=== PATIENT | female | born 1950 | race Caucasian/White ===

== ENCOUNTER 2020-02-25 09:00 | Outpatient (REF) | payer MEDICARE, SELFPAY ==
[2020-02-25 11:17] LABS: MANUAL DIFF FLAG NO
[2020-02-25 11:28] LABS: Eosinophils Absolute Auto 0.2 X10*3/uL (0.0-0.4); Eosinophils Percent Auto 2.6 % (0-4); Hematocrit 37.5 % (37-47); Hemoglobin 12.2 g/dl (12.0-16.0); Imm Gran Abs Auto 0.02 X10*3/uL (0.00-0.03); Imm Gran Pct Auto 0.3 % (0.0-0.4); Lymphocytes Absolute Auto 1.8 X10*3/uL (1.2-4.9); Lymphocytes Percent Auto 28.8 % (20-40); Mean Corpuscular HGB Conc 32.5 g/dl (31.0-35.0); Mean Corpuscular Hemoglobin 32.1 pg (27.0-33.0); Mean Corpuscular Volume 98.7 fL (80-98); Monocytes Absolute Auto 0.5 X10*3/uL (0.1-1.2); Monocytes Percent Auto 8.8 % (2-11); Neutrophils Absolute Auto 3.7 X10*3/uL (2.0-8.3); Neutrophils Percent Auto 59.5 % (45-73); Platelet Count 240 X10*3/uL (160-400); Red Cell Distribution Width 12.4 % (11.0-16.0); White Blood Count 6.2 X10*3/uL (4.8-10.8)
[2020-02-25 11:36] LABS: Estimated Average Glucose 160 mg/dL; Hemoglobin A1c % 7.2 %
[2020-02-25 11:57] LABS: Alanine Aminotransferase 17 U/L (0-31); Albumin Level 4.4 g/dL (3.5-5.0); Alkaline Phosphatase 43 U/L (39-117); Anion Gap 15 (12-20); Aspartate Amino Transferase 25 U/L (5-31); Bilirubin Total 0.6 mg/dL (0.0-1.0); Blood Urea Nitrogen 9 mg/dL (9-16); Calcium 8.9 mg/dL (8.4-10.2); Carbon Dioxide 27 mmol/L (22-29); Chloride 103 mmol/L (96-108); Cholesterol 85 mg/dL; Estimated Glomerular Filt Rate > 60; Glucose Fasting 131 mg/dL (60-99); HDL Cholesterol 45 mg/dL; LDL Cholesterol Calculated 32 mg/dl; Potassium 4.5 mmol/l (3.3-5.1); Sodium 140 mmol/L (135-145); Total Protein 7.3 g/dL (6.5-8.0); Triglycerides 44 mg/dL
[2020-02-25 12:10] LABS: Vitamin D 25-OH Total 48.2 ng/mL (>30)
[2020-02-25 12:18] LABS: Creatinine Urine 109.46 mg/dL; Microalbum/Creatinine Ratio Ur 12.7 ug/mg cr
[2020-02-25 12:20] LABS: Vitamin B12 309 pg/mL (200-900)
[2020-02-26 07:47] LABS: LDL Cholesterol Direct 30 mg/dL (<100)
[2020-02-29 11:12] LABS: N-Telopeptide 15 (see note); NTXCreaRU 114 mg/dL (20-275)
== END 2020-02-25 09:01 | disposition home or self-care (01) ==
LOC: HO.HMGCLDS 09:00
PROVIDERS: PCP Hospitalist; Visit Provider Internal Medicine Endocrinology, Diabetes & Metabolism
DX: E11.29 Type 2 diabetes mellitus with other diabetic kidney complication (principal); M81.0 Age-related osteoporosis without current pathological fracture
CPT/HCPCS: 36415; 80053; 80061; 82043; 82306; 82523; 82607; 83036; 83721; 85025

== ENCOUNTER → 2020-02-27 13:36 | Outpatient (BNVA) | payer MEDICARE, SELFPAY | PROVIDERS: PCP Hospitalist; Referring Provider Hospitalist; Visit Provider Internal Medicine Endocrinology, Diabetes & Metabolism | DX: E11.65 Type 2 diabetes mellitus with hyperglycemia (principal); E11.21 Type 2 diabetes mellitus with diabetic nephropathy; E78.5 Hyperlipidemia, unspecified; M81.0 Age-related osteoporosis without current pathological fracture; Z79.899 Other long term (current) drug therapy; Z79.82 Long term (current) use of aspirin | CPT/HCPCS: Q3014 ==

== ENCOUNTER → 2020-03-23 11:21 | Outpatient (BNVA) | payer MEDICARE, SELFPAY | PROVIDERS: PCP Hospitalist; Visit Provider Internal Medicine Endocrinology, Diabetes & Metabolism | DX: M81.0 Age-related osteoporosis without current pathological fracture (principal) | CPT/HCPCS: 96402; J0897 ==

== ENCOUNTER 2020-04-26 12:41 | Outpatient (REF) | payer MEDICARE, SELFPAY ==
[2020-04-26 14:25] LABS: Albumin Level 4.3 g/dL (3.5-5.0); Calcium 8.6 mg/dL (8.4-10.2)
== END 2020-04-26 12:42 | disposition home or self-care (01) ==
LOC: HO.HMGCLDS 12:41
PROVIDERS: PCP Hospitalist; Visit Provider Internal Medicine Endocrinology, Diabetes & Metabolism
DX: M81.0 Age-related osteoporosis without current pathological fracture (principal)
CPT/HCPCS: 36415; 82040; 82310

== ENCOUNTER 2020-09-02 13:12 | Outpatient (REF) | payer MEDICARE, SELFPAY ==
--- NOTE | ~2020-09-02 | MM_ITS ---
EXAMINATION: MM SCREENING DIGITAL BREAST TOMOSYNTHESIS, BILATERAL CLINICAL INFORMATION: Screening. Asymptomatic. The lifetime risk of breast cancer based on the Tyrer-Cuzick Model is 4%. COMPARISON: Mammography: 09/02/2018, 08/14/2017, 08/11/2016 TECHNIQUE: Digital breast tomosynthesis is performed in both the craniocaudal and mediolateral oblique views along with computer-aided detection (CAD). Synthesized 2D images are generated from the tomosynthesis. FINDINGS: The breasts are heterogeneously dense, which may obscure small masses (ACR BI-RADS breast composition Category c). There are no significant masses, abnormal calcifications, or other abnormalities. Parenchymal pattern is similar to prior exams. There is no developing density or interval mass or architectural abnormality. The axilla and skin contours are unremarkable. MM/MM tomosynthesis screening BI IMPRESSION: No mammographic evidence of malignancy. ASSESSMENT: BI-RADS 1: Negative RECOMMENDATION: Routine annual mammography screening. This patient's information was entered into a reminder system with a target due date for their next mammogram.
== END 2020-09-02 13:13 | disposition home or self-care (01) ==
LOC: HO.MAMMO 13:12
PROVIDERS: PCP Hospitalist; Visit Provider Hospitalist
DX: Z12.31 Encounter for screening mammogram for malignant neoplasm of breast (principal)
CPT/HCPCS: 77063; 77067

== ENCOUNTER 2020-09-24 08:34 | Outpatient (REF) | payer MEDICARE, SELFPAY ==
[2020-09-24 10:22] LABS: Alanine Aminotransferase 17 U/L (0-31); Albumin Level 4.2 g/dL (3.5-5.0); Alkaline Phosphatase 40 U/L (39-117); Anion Gap 14 (12-20); Aspartate Amino Transferase 23 U/L (5-31); Bilirubin Total 0.5 mg/dL (0.0-1.0); Blood Urea Nitrogen 13 mg/dL (9-16); Carbon Dioxide 26 mmol/L (22-29); Chloride 102 mmol/L (96-108); Cholesterol 88 mg/dL; Estimated Glomerular Filt Rate > 60; Glucose Random 167 mg/dL (60-115); HDL Cholesterol 50 mg/dL; LDL Cholesterol Calculated 32 mg/dl; Potassium 4.5 mmol/L (3.3-5.1); Sodium 137 mmol/L (135-145); Triglycerides 33 mg/dL
[2020-09-24 10:43] LABS: Vitamin D 25-OH Total 47.2 ng/mL (>30)
[2020-09-24 10:45] LABS: Vitamin B12 258 pg/mL (200-900)
[2020-09-24 11:15] LABS: Creatinine Urine 60.69 mg/dL; Microalbum/Creatinine Ratio Ur 11.5 ug/mg cr
[2020-09-25 08:16] LABS: LDL Cholesterol Direct 26 mg/dL (<100)
[2020-10-05 05:48] LABS: N-Telopeptide 21 (see note); NTXCreaRU 57 mg/dL (20-275)
== END 2020-09-24 08:35 | disposition home or self-care (01) ==
LOC: HO.LAB 08:34
PROVIDERS: PCP Hospitalist; Visit Provider Internal Medicine Endocrinology, Diabetes & Metabolism
DX: E11.65 Type 2 diabetes mellitus with hyperglycemia (principal); E11.21 Type 2 diabetes mellitus with diabetic nephropathy; M81.0 Age-related osteoporosis without current pathological fracture; E78.5 Hyperlipidemia, unspecified; Z79.899 Other long term (current) drug therapy
CPT/HCPCS: 36415; 80053; 80061; 82043; 82306; 82523; 82607; 82947; 83721; 96372; 99212; J0897; J3240

== ENCOUNTER 2021-03-28 12:45 | Outpatient (REF) | payer MEDICARE, SELFPAY ==
[2021-03-28 14:16] LABS: Estimated Average Glucose 177 mg/dL; Hemoglobin A1c % 7.8 %
[2021-03-28 14:31] LABS: Alanine Aminotransferase 13 U/L (0-31); Alkaline Phosphatase 43 U/L (39-117); Anion Gap 11 (12-20); Aspartate Amino Transferase 21 U/L (5-31); Bilirubin Total 0.3 mg/dL (0.0-1.0); Blood Urea Nitrogen 13 mg/dL (9-16); Calcium 9.3 mg/dL (8.4-10.2); Carbon Dioxide 30 mmol/L (22-29); Chloride 102 mmol/L (96-108); Cholesterol 111 mg/dL; Estimated Glomerular Filt Rate > 60; Glucose Random 250 mg/dL (60-115); HDL Cholesterol 56 mg/dL; LDL Cholesterol Calculated 49 mg/dl; Potassium 4.4 mmol/L (3.3-5.1); Sodium 139 mmol/L (135-145); Triglycerides 34 mg/dL
[2021-03-28 14:55] LABS: Free T4 (Free Thyroxine) 1.32 ng/dL (0.71-1.85); Vitamin D 25-OH Total 42.3 ng/mL (>30)
[2021-03-29 07:36] LABS: LDL Cholesterol Direct 37 mg/dL (<100)
[2021-03-29 13:31] LABS: Calcium (PTHI) 9.5 mg/dL (8.6-10.4); PTHI 41 pg/mL (14-64)
[2021-03-29 15:17] LABS: Calcium, Ionized 4.8 mg/dL (4.8-5.6)
[2021-03-29 21:02] LABS: Prot Elec - Albumin 3.8 g/dL (3.8-4.8); Prot Elec - Alpha1 0.3 g/dL (0.2-0.3); Prot Elec - Alpha2 0.8 g/dL (0.5-0.9); Prot Elec - Beta 1 0.5 g/dL (0.4-0.6); Prot Elec - Beta 2 0.4 g/dL (0.2-0.5); Prot Elec - Gamma 0.9 g/dL (0.8-1.7); Prot Elec - Total Protein 6.7 g/dL (6.1-8.1)
[2021-04-01 14:22] LABS: Alkaline Phosphatase Bone 7.7 mcg/L (5.6-29.0)
== END 2021-03-28 12:46 | disposition home or self-care (01) ==
LOC: HO.10HDL 12:45
PROVIDERS: Absent Provider Hospitalist; Visit Provider Internal Medicine
DX: E78.5 Hyperlipidemia, unspecified (principal); M81.0 Age-related osteoporosis without current pathological fracture
CPT/HCPCS: 36415; 80053; 80061; 82306; 82330; 83036; 83721; 83970; 84075; 84100; 84165; 84439; 84443

== ENCOUNTER 2021-03-30 12:31 | Outpatient (REF) | payer MEDICARE, SELFPAY ==
[2021-03-30 15:04] LABS: Creatinine, mg/dL 57.19
[2021-03-30 15:06] LABS: Creatinine Urine 111.59 mg/dL; Microalbum/Creatinine Ratio Ur 11.6 ug/mg cr
[2021-03-30 16:25] LABS: Creatinine, 24Hr Urine 0.4 G/Day (1.0-2.0); Total Volume 24 Hour Urine 675 mL
[2021-04-01 18:31] LABS: Calcium, 24 Hr Urine 63 mg/24 h; Calcium/Creatinine Ratio 159 mg/g creat (30-275)
[2021-04-04 21:07] LABS: N-Telopeptide 29 (see note); NTXCreaRU 114 mg/dL (20-275)
== END 2021-03-30 12:32 | disposition home or self-care (01) ==
LOC: HO.10HDL 12:31
PROVIDERS: Visit Provider Internal Medicine
DX: M81.0 Age-related osteoporosis without current pathological fracture (principal); E78.5 Hyperlipidemia, unspecified
CPT/HCPCS: 82043; 82340; 82523; 82570

== ENCOUNTER → 2021-04-06 11:29 | Outpatient (BNVA) | payer MEDICARE, SELFPAY | PROVIDERS: PCP Hospitalist; Visit Provider Internal Medicine | DX: M81.0 Age-related osteoporosis without current pathological fracture (principal); E55.9 Vitamin D deficiency, unspecified | CPT/HCPCS: 99212 ==

== ENCOUNTER 2021-04-08 11:37 | Outpatient (REF) | payer MEDICARE, SELFPAY ==
[2021-04-08 14:36] LABS: Creatinine, mg/dL 21.62
[2021-04-08 14:40] LABS: Creatinine, 24Hr Urine 0.4 G/Day (1.0-2.0); Total Volume 24 Hour Urine 2075 mL
[2021-04-09 16:31] LABS: Calcium, 24 Hr Urine 62 mg/24 h; Calcium/Creatinine Ratio 130 mg/g creat (30-275); Creatinine 24Hr Urine 0.48 g/24 h (0.50-2.15)
== END 2021-04-08 11:38 | disposition home or self-care (01) ==
LOC: HO.10HDLNP 11:37
PROVIDERS: Visit Provider Internal Medicine
DX: M81.0 Age-related osteoporosis without current pathological fracture (principal)
CPT/HCPCS: 82340; 82570

== ENCOUNTER → 2021-04-13 08:06 | Outpatient (BNVA) | payer MEDICARE, SELFPAY | PROVIDERS: PCP Hospitalist; Visit Provider Internal Medicine | CPT/HCPCS: Q3014 ==

== ENCOUNTER 2021-05-20 09:54 | Outpatient (REF) | payer MEDICARE, SELFPAY ==
[2021-05-20 10:29] LABS: Creatinine, mg/dL 26.44
[2021-05-20 10:41] LABS: Creatinine, 24Hr Urine 0.6 G/Day (1.0-2.0); Total Volume 24 Hour Urine 2325 mL
[2021-05-23 17:01] LABS: Calcium, 24 Hr Urine 77 mg/24 h; Calcium/Creatinine Ratio 114 mg/g creat (30-275); Creatinine 24Hr Urine 0.67 g/24 h (0.50-2.15)
== END 2021-05-20 09:55 | disposition home or self-care (01) ==
LOC: HO.LNP 09:54
PROVIDERS: Visit Provider Internal Medicine
DX: M81.0 Age-related osteoporosis without current pathological fracture (principal)
CPT/HCPCS: 82340; 82570

== ENCOUNTER → 2021-05-23 11:24 | Outpatient (BNVA) | payer MEDICARE, SELFPAY | PROVIDERS: PCP Hospitalist; Visit Provider Internal Medicine | DX: M81.0 Age-related osteoporosis without current pathological fracture (principal); E55.9 Vitamin D deficiency, unspecified | CPT/HCPCS: 99212 ==

== ENCOUNTER → 2021-06-10 12:36 | Outpatient (BNVA) | payer MEDICARE, SELFPAY | PROVIDERS: PCP Hospitalist; Visit Provider Internal Medicine | DX: M81.0 Age-related osteoporosis without current pathological fracture (principal) | CPT/HCPCS: 96372; J0897 ==

== ENCOUNTER → 2021-07-13 10:48 | Outpatient (BNVA) | payer MEDICARE, SELFPAY | PROVIDERS: PCP Hospitalist; Visit Provider Nurse Practitioner Gerontology | DX: E11.65 Type 2 diabetes mellitus with hyperglycemia (principal); E11.21 Type 2 diabetes mellitus with diabetic nephropathy; E78.5 Hyperlipidemia, unspecified | CPT/HCPCS: 82947; 83036; 99212 ==

== ENCOUNTER 2021-08-31 10:01 | Outpatient (REF) | payer MEDICARE, SELFPAY ==
[2021-08-31 11:44] LABS: Estimated Glomerular Filt Rate > 60
[2021-08-31 11:57] LABS: Creatinine Urine 155.19 mg/dL; Microalbum/Creatinine Ratio Ur 18.6 ug/mg cr
[2021-09-01 15:36] LABS: Calcium (PTHI) 9.2 mg/dL (8.6-10.4); PTHI 45 pg/mL (16-77)
== END 2021-08-31 10:02 | disposition home or self-care (01) ==
LOC: HO.HMGCLDS 10:01
PROVIDERS: Absent Provider Nurse Practitioner Gerontology; PCP Nurse Practitioner Family; Visit Provider Internal Medicine
DX: E11.65 Type 2 diabetes mellitus with hyperglycemia (principal); E55.9 Vitamin D deficiency, unspecified; M81.0 Age-related osteoporosis without current pathological fracture; Z79.899 Other long term (current) drug therapy
CPT/HCPCS: 36415; 82043; 82565; 83970; Q3014

== ENCOUNTER 2021-10-04 09:08 | Outpatient (REF) | payer MEDICARE, SELFPAY ==
--- NOTE | ~2021-10-04 | MM_ITS ---
EXAMINATION: MM SCREENING DIGITAL BREAST TOMOSYNTHESIS, BILATERAL CLINICAL INFORMATION: Screening. Asymptomatic. The lifetime risk of breast cancer based on the Tyrer-Cuzick Model is 3.0%. COMPARISON: Mammography: September 02, 2020 and studies dating back to July 10, 2013 TECHNIQUE: Digital breast tomosynthesis is performed in both the craniocaudal and mediolateral oblique views along with computer-aided detection (CAD). Synthesized 2D images are generated from the tomosynthesis. FINDINGS: The breasts are heterogeneously dense, which may obscure small masses (ACR BI-RADS breast composition Category c). There are no significant masses, abnormal calcifications, or other abnormalities. MM/MM tomosynthesis screening BI IMPRESSION: There are no significant changes from prior study. ASSESSMENT: BI-RADS 1: Negative RECOMMENDATION: Routine annual mammography screening. This patient's information was entered into a reminder system with a target due date for their next mammogram.
--- NOTE | ~2021-10-04 | MM_ITS ---
EXAMINATION: BONE DENSITOMETRY CLINICAL INDICATION: Age-related osteoporosis without current pathological fracture. COMPARISON: Previous BD dated 09/24/2019 and baseline BD dated 09/21/2006. TECHNIQUE: Using a [employer] DXA System (software version: 13.1) manufactured by [employer], dual-energy x-ray absorptiometry was performed of the lumbar spine and left hip. The images are of good technical quality. Summary results are attached. FINDINGS: AP SPINE L1-L4: Current: BMD 0.880 g/cm2, Z-score -0.1, T-score -2.5, osteoporosis, 2.1% increase from previous, 10.8% increase from baseline (<5% change is not significant). Prior: BMD 0.862 g/cm2. Baseline: BMD 0.794 g/cm2. LEFT FEMUR, NECK: Current: BMD 0.649 g/cm2, Z-score -0.5, T-score -2.8, osteoporosis. Prior: BMD 0.610 g/cm2. Baseline: BMD 0.540 g/cm2. LEFT FEMUR, TOTAL: Current: BMD 0.761 g/cm2, Z-score 0.1, T-score -2.0, osteopenia, 3.1% increase from previous, 7.5% increase from baseline (<5% change is not significant). Prior: BMD 0.738 g/cm2. Baseline: BMD 0.708 g/cm2. IDENTIFIED RISK FACTORS: Osteoporosis, menopause, glucocorticoids (chronic). HISTORY OF FRACTURE: None listed. MEDICATIONS: Calcium supplements or multivitamin, vitamin D, Prolia. MM/XR DEXA axial skeleton IMPRESSION: 1. DIAGNOSIS: Osteoporosis based on the lowest T-score value of -2.8 in the femoral neck applying World Health Organization criteria. 2. 10-YEAR FRACTURE RISK PREDICTION, FRAX: According to the guidelines, FRAX calculation should only be performed on patients in the osteopenia bone density category. Therefore, FRAX was not performed on this patient. 3. Treatment Recommendations: NOF guidelines recommend consideration for treatment in postmenopausal women and men age 50 and older presenting with the following: -A hip or vertebral (clinical or morphometric) fracture. -T-score less than or equal to -2.5 at the femoral neck or spine after appropriate evaluation to exclude secondary causes. -Low bone mass at the hip or spine and a 10-year fracture probability by FRAX of greater than or equal to 3% for hip fracture or greater than or equal to 20% for major osteoporotic fracture based on the [place] adapted WHO algorithm. 4. Other Recommendations: All treatment decisions require clinical judgment and consideration of individual patient factors, including patient preferences, comorbidities, previous drug use, risk factors not captured in the FRAX model (e.g. frailty, falls, vitamin D deficiency, increased bone turnover, interval significant decline in bone density) and possible under or overestimation of fracture risk by FRAX. Additional medical evaluation for secondary cause of low bone mineral density may be appropriate. FUTURE SCAN RECOMMENDATION: People with diagnosed cases of osteoporosis or at high risk for fracture should have regular bone mineral density tests. For patients eligible for Medicare, routine testing is allowed once every 2 years. The testing frequency can be increased to one year for patients who have rapidly progressing disease, those who are receiving or discontinuing medical therapy to restore bone mass, or have additional risk factors.
== END 2021-10-04 09:09 | disposition home or self-care (01) ==
LOC: HO.MAMMO 09:08
PROVIDERS: PCP Nurse Practitioner Family; Visit Provider Internal Medicine
DX: Z12.31 Encounter for screening mammogram for malignant neoplasm of breast (principal); Z13.820 Encounter for screening for osteoporosis; M81.0 Age-related osteoporosis without current pathological fracture; Z78.0 Asymptomatic menopausal state
CPT/HCPCS: 77063; 77067; 77080

== ENCOUNTER 2021-12-06 09:18 | Outpatient (REF) | payer MEDICARE, SELFPAY ==
[2021-12-06 11:51] LABS: MANUAL DIFF FLAG NO
[2021-12-06 12:09] LABS: Eosinophils Absolute Auto 0.2 X10*3/uL (0.0-0.4); Eosinophils Percent Auto 3.5 % (0-4); Hematocrit 32.1 % (37.0-47.0); Hemoglobin 10.2 g/dl (12.0-16.0); Imm Gran Abs Auto 0.03 X10*3/uL (0.00-0.03); Imm Gran Pct Auto 0.5 % (0.0-0.4); Lymphocytes Absolute Auto 1.7 X10*3/uL (1.2-4.9); Mean Corpuscular HGB Conc 31.8 g/dl (31.0-35.0); Mean Corpuscular Hemoglobin 29.6 pg (27.0-33.0); Mean Platelet Volume 10.2 fL (9.4-12.3); Monocytes Absolute Auto 0.6 X10*3/uL (0.1-1.2); Monocytes Percent Auto 9.1 % (2-11); Neutrophils Percent Auto 60.9 % (45-73); Platelet Count 261 X10*3/uL (160-400); Red Blood Count 3.45 X10*6/uL (4.20-5.50); Red Cell Distribution Width 14.2 % (11.0-16.0); White Blood Count 6.6 X10*3/uL (4.8-10.8)
[2021-12-06 12:18] LABS: Estimated Average Glucose 180 mg/dL; Hemoglobin A1c % 7.9 %
[2021-12-06 12:29] LABS: Cholesterol 113 mg/dL; HDL Cholesterol 56 mg/dL; LDL Cholesterol Calculated 50 mg/dl; Triglycerides 36 mg/dL
[2021-12-06 12:34] LABS: Alanine Aminotransferase 17 U/L (0-31); Albumin Level 4.1 g/dL (3.5-5.0); Alkaline Phosphatase 43 U/L (39-117); Anion Gap 15 (12-20); Aspartate Amino Transferase 24 U/L (5-31); Bilirubin Total 0.4 mg/dL (0.0-1.0); Blood Urea Nitrogen 11 mg/dL (9-16); Calcium 9.4 mg/dL (8.4-10.2); Carbon Dioxide 30 mmol/L (22-29); Chloride 101 mmol/L (96-108); Estimated Glomerular Filt Rate > 60; Glucose Random 144 mg/dL (60-115); Phosphorus 4.3 mg/dL (2.7-4.5); Potassium 4.8 mmol/L (3.3-5.1); Sodium 141 mmol/L (135-145)
[2021-12-06 12:49] LABS: Vitamin B12 283 pg/mL (200-900)
[2021-12-06 12:53] LABS: Creatinine Urine 83.08 mg/dL; Microalbum/Creatinine Ratio Ur 19.2 ug/mg cr
[2021-12-06 13:13] LABS: Vitamin D 25-OH Total 50.5 ng/mL (>30)
[2021-12-07 11:46] LABS: Calcium (PTHI) 9.2 mg/dL (8.6-10.4); PTHI 44 pg/mL (16-77)
[2021-12-12 08:51] LABS: N-Telopeptide 18 (see note); NTXCreaRU 83 mg/dL (20-275)
== END 2021-12-06 09:19 | disposition home or self-care (01) ==
LOC: HO.HMGCLDS 09:18
PROVIDERS: Absent Provider Nurse Practitioner Family; PCP Nurse Practitioner Family; Visit Provider Internal Medicine
DX: Z00.00 Encounter for general adult medical examination without abnormal findings (principal); M81.0 Age-related osteoporosis without current pathological fracture; E11.9 Type 2 diabetes mellitus without complications; E55.9 Vitamin D deficiency, unspecified; Z86.2 Personal history of diseases of the blood and blood-forming organs and certain disorders involving the immune mechanism
CPT/HCPCS: 36415; 80053; 80061; 82043; 82306; 82523; 82607; 83036; 83970; 84100; 85025

== ENCOUNTER → 2021-12-12 12:53 | Outpatient (BNVA) | payer MEDICARE, SELFPAY | PROVIDERS: PCP Nurse Practitioner Family; Visit Provider Internal Medicine | DX: M81.0 Age-related osteoporosis without current pathological fracture (principal); E55.9 Vitamin D deficiency, unspecified; E11.65 Type 2 diabetes mellitus with hyperglycemia | CPT/HCPCS: 96372; 99212; J0897 ==

== ENCOUNTER 2021-12-20 09:02 | Day surgery (SDC) | payer MEDICARE, SELFPAY ==
[2021-12-15 13:51] VITALS: BMI 21.6
--- NOTE | 2021-12-19 08:34 | HO.ANESPROP2 ---
Documented by User: Caro Aguayo NP 12/19/21 08:36 HPI - Anesthesia Eval Consult details Narrative: 71yo F for Colonoscopy PMFSH Active Problems Active Problems: All Active Problems (Updated 12/15/21 @ 13:51 by Becca Fang, RU) Vitamin D deficiency (Acute) Dyslipidemia (Acute) Osteoporosis (Acute) Diabetic nephropathy associated with type 2 diabetes mellitus (Acute) Diabetes type 2, uncontrolled (Acute) Past Medical History Medical History Anemia Diabetes type 2, uncontrolled Diabetic nephropathy associated with type 2 diabetes mellitus Dyslipidemia Glaucoma Osteoporosis Vitamin D deficiency Family History Family History Father Heart disease Mother CHF (congestive heart failure) Surgical History Surgical History H/O colonoscopy History of ear surgery Hx of cataract extraction Hx of eye surgery Social History Social History Alcohol intake: never Patient Tobacco Use Status: Never used Tobacco Use of substances other than those prescribed or required for medical reasons: No Are you DNR?: No Advance Directives: No Advance Directives Information Provided: Yes Meds Allergies Allergy/AdvReac Type Severity Reaction Status Date / Time penicillin V Allergy Unknown Unknown Verified 12/20/21 09:29 Home Medications Medication Instructions Recorded Confirmed Last Taken Type denosumab 60 mg/mL subcutaneous 60 mg subcut [id number] 02/27/20 12/20/21 Unknown History syringe (Prolia) lancing device with lancets kit #1 ea 02/27/20 12/20/21 Unknown History (Accu-Chek FastClix Lancing Device kit) dorzolamide 22.3 mg-timolol 6.8 1 drp ophthalmic (eye) BID 09/24/20 12/20/21 Unknown History mg/mL eye drops vit C 250 mg-vit E 90 mg-zinc 40 1 cap PO BID 09/24/20 12/20/21 Unknown History mg-copper 1 [id number] capsule Exam Exam Date and Time: December 19, 2021 0834 Height,Weight and Vital Signs: Height 4 ft 9 in Weight 45.359 kg Pertinent Lab Results Pertinent Lab Results: Laboratory Tests 12/06/21 12/06/21 09:31 09:31 WBC 6.6 Hgb 10.2 L Hct 32.1 L Plt Count 261 Sodium 141 Potassium 4.8 Chloride 101 Carbon Dioxide 30 H BUN 11 Creatinine 0.73 Assessment and Plan Assessment Anesthesia Assessment: Chart Reviewed Documented by User: Huong Montiel MD 12/20/21 10:10 [facility] Past Medical History Medical History Anemia Diabetes type 2, uncontrolled Diabetic nephropathy associated with type 2 diabetes mellitus Dyslipidemia Glaucoma Osteoporosis Vitamin D deficiency Functional capacity: independent ambulation Patient : No Family History Family History Father Heart disease Mother CHF (congestive heart failure) Family history of problems with anesthesia: No Surgical History Surgical History H/O colonoscopy History of ear surgery Hx of cataract extraction Hx of eye surgery History of Problems with Anesthesia: No Social History Social History Alcohol intake: never Patient Tobacco Use Status: Never used Tobacco Use of substances other than those prescribed or required for medical reasons: No Are you DNR?: No Advance Directives: No Advance Directives Information Provided: Yes Meds Allergies Allergy/AdvReac Type Severity Reaction Status Date / Time penicillin V Allergy Unknown Unknown Verified 12/20/21 09:29 Home Medications Medication Instructions Recorded Confirmed Last Taken Type denosumab 60 mg/mL subcutaneous 60 mg subcut [id number] 02/27/20 12/20/21 Unknown History syringe (Prolia) lancing device with lancets kit #1 ea 02/27/20 12/20/21 Unknown History (Accu-Chek FastClix Lancing Device kit) dorzolamide 22.3 mg-timolol 6.8 1 drp ophthalmic (eye) BID 09/24/20 12/20/21 Unknown History mg/mL eye drops vit C 250 mg-vit E 90 mg-zinc 40 1 cap PO BID 09/24/20 12/20/21 Unknown History mg-copper 1 [id number]-[id number] capsule Exam Airway Mallampati Class: II TM Dist: >3cm Neck ROM: Full Heart: RRR Lungs: CTA Assessment and Plan Final Anesthetic Review Family History of Problems with Anesthesia: No History of Problems with Anesthesia: No ASA Class: II Final Preanesthetic Review: No Changes in Pt Med Stat, Meds/Allgs Chart Reviewed and Consent Obtained/Reviewed Patient Risk: Low Procedure Risk: Low Anesthetic Plan Anesthetic Plan: MAC: Disposition: Standard PACU
[2021-12-20 09:35] VITALS: BP 123/49; PULSE 83; RESP 16; TEMP 36.7; O2SAT 99
[2021-12-20 09:35] LABS: Glucose, Whole Blood 149 mg/dL (60-115)
[2021-12-20] MEDS: Lactated Ringers 1,000 ML 100 ML IVCONT (10:13)
--- NOTE | 2021-12-20 10:26 | MHC.SHP ---
Pre-Procedural Eval Section A Date of Service: 12/20/21 The patient is an INPATIENT: No Changes since office visit: No Cold of Flu in the past 2 weeks, No New Medical Problems, No Changes in Medication and No Patient answered all questions The History & Physical has been completed within 30 days and I have reviewed it.: Yes Section B Chief Complaint: Family history of malignant neoplasm of digestive Allergies: Allergies Allergy/AdvReac Type Severity Reaction Status Date / Time penicillin V Allergy Unknown Unknown Verified 12/20/21 09:29 Plan I have reviewed the history and physical and performed a pertinent physical examination on my patient. No changes have occurred unless specified.
--- NOTE | 2021-12-20 10:53 | PM.OP ---
Brief Operative Note Date of Service: 12/20/21 Pre-op diagnosis: screening Post-op diagnosis: same Surgeon: Ruben Valdes Anesthesia: MAC Was an Acquisitions Editor used for this Procedure?: No Estimated blood loss (mL): 0 Pathology: none sent Condition: stable Disposition: PACU
[2021-12-20 10:55] VITALS: BP 96/33; PULSE 84; RESP 16; TEMP 36.6; O2SAT 99
[2021-12-20 11:10] VITALS: BP 96/33; PULSE 81; RESP 17; O2SAT 98
[2021-12-20 11:25] VITALS: BP 121/51; PULSE 77; RESP 18; TEMP 37.1; O2SAT 98
--- NOTE | 2021-12-20 15:24 | HO.POSTANES ---
Post Anesthesia Evaluation Post Anesthesia Evaluation Vital Signs: Vital Signs Temp Pulse Resp BP Pulse Ox O2 Del Method O2 Flow Rate 12/20/21 11:25 98.7 F 77 18 121/51 L 98 Room Air 12/20/21 11:10 81 17 96/33 L 98 Room Air 12/20/21 10:55 97.9 F 84 16 96/33 L 99 Nasal Cannula 2 12/20/21 09:35 98.0 F 83 16 123/49 L 99 Room Air Anesthesia: Monitored Mental Status: Awake Pain Control: Satisfactory Nausea/Vomiting: None Hydration: Adequate Anesthesia-Related Issues: No Anes. Related Issues
--- NOTE | 2021-12-20 23:25 | OP_ITS ---
SURGEON: Ruben Valdes MD INDICATIONS: Colon cancer screening and family history of colon cancer. PREOPERATIVE DIAGNOSIS: POSTOPERATIVE DIAGNOSIS: PROCEDURE PERFORMED: ESTIMATED BLOOD LOSS: COMPLICATIONS: ANESTHESIA: ASSISTANTS: SPECIMENS: PROCEDURE: Colonoscopy to the terminal ileum. MEDICATIONS: Monitored anesthesia care. DESCRIPTION OF PROCEDURE: The procedure was performed on 12/20/2021. A history and physical performed. The risks and benefits of the procedure were explained to the patient. Informed consent was obtained. The patient was placed in left lateral decubitus position. A digital rectal exam was performed and was found to be normal. The Olympus pediatric video colonoscope was introduced into the rectum and advanced to the cecum without difficulty. The cecum was identified by transillumination, palpation, and identification of ileocecal valve. Examination was performed. The scope was removed. She tolerated the procedure well and was returned to recovery area in stable condition. FINDINGS: The terminal ileum was examined and appeared normal. The visualized colonic mucosa was normal. The quality of the prep was good. No polyps were identified. Retroflexed examination was normal. IMPRESSION: Normal colonoscopy. RECOMMENDATION: 1. Follow up as needed. 2. Family history of colon cancer, repeat colonoscopy could be considered in 5 years. This is optional based on the patient's age. MD FLAKO Williamson/EVANL / [phone]
== END 2021-12-20 13:54 | disposition home or self-care (01) ==
PROVIDERS: PCP Nurse Practitioner Family; Visit Provider Internal Medicine Gastroenterology
PROC: 0DJD8ZZ Inspection of Lower Intestinal Tract, Via Natural or Artificial Opening Endoscopic (ICD-10-PCS; CPT 45378; principal; 2021-12-20 10:10)
DX: Z12.11 Encounter for screening for malignant neoplasm of colon (principal); Z80.0 Family history of malignant neoplasm of digestive organs; E11.9 Type 2 diabetes mellitus without complications; E78.00 Pure hypercholesterolemia, unspecified; D64.9 Anemia, unspecified; M81.0 Age-related osteoporosis without current pathological fracture; H40.9 Unspecified glaucoma; Z79.84 Long term (current) use of oral hypoglycemic drugs; Z79.82 Long term (current) use of aspirin; Z79.899 Other long term (current) drug therapy; Z88.0 Allergy status to penicillin; Z88.8 Allergy status to other drugs, medicaments and biological substances
CPT/HCPCS: G0105; 82947

== ENCOUNTER 2022-05-03 10:58 | Outpatient (REF) | payer MEDICARE, SELFPAY ==
[2022-05-03 14:01] LABS: MANUAL DIFF FLAG NO
[2022-05-03 14:15] LABS: Eosinophils Absolute Auto 0.2 X10*3/uL (0.0-0.4); Eosinophils Percent Auto 2.7 % (0-4); Hematocrit 31.9 % (37.0-47.0); Hemoglobin 9.9 g/dl (12.0-16.0); Imm Gran Abs Auto 0.02 X10*3/uL (0.00-0.03); Imm Gran Pct Auto 0.4 % (0.0-0.4); Lymphocytes Absolute Auto 1.3 X10*3/uL (1.2-4.9); Lymphocytes Percent Auto 24.2 % (20-40); Mean Corpuscular Hemoglobin 29.1 pg (27.0-33.0); Mean Corpuscular Volume 93.8 fL (80.0-98.0); Mean Platelet Volume 10.3 fL (9.4-12.3); Monocytes Absolute Auto 0.5 X10*3/uL (0.1-1.2); Monocytes Percent Auto 8.5 % (2-11); Neutrophils Absolute Auto 3.5 x10*3/uL (2.0-8.3); Neutrophils Percent Auto 64.2 % (45-73); Platelet Count 234 X10*3/uL (160-400); Red Cell Distribution Width 14.2 % (11.0-16.0); White Blood Count 5.5 X10*3/uL (4.8-10.8)
[2022-05-03 14:26] LABS: Iron 35 mcg/dL (30-160); Percent Iron Saturation 9 % (15-50); Total Iron Binding Capacity 392 mcg/dL (228-428); Unsaturated Iron Binding 357 ug/dL
[2022-05-03 14:47] LABS: Alanine Aminotransferase 14 U/L (0-31); Albumin Level 4.1 g/dL (3.5-5.0); Alkaline Phosphatase 45 U/L (39-117); Anion Gap 14 (12-20); Aspartate Amino Transferase 20 U/L (5-31); Bilirubin Total 0.5 mg/dL (0.0-1.0); Blood Urea Nitrogen 11 mg/dL (9-16); Calcium 8.5 mg/dL (8.4-10.2); Carbon Dioxide 26 mmol/L (22-29); Chloride 107 mmol/L (96-108); Estimated Glomerular Filt Rate > 60; Glucose Random 152 mg/dL (60-115); Potassium 4.8 mmol/L (3.3-5.1); Sodium 142 mmol/L (135-145); Total Protein 6.9 g/dL (6.5-8.0)
[2022-05-03 14:51] LABS: Ferritin 8 ng/mL (10-250)
[2022-05-05 14:39] LABS: Transferrin 368 mg/dL (188-341)
== END 2022-05-03 10:59 | disposition home or self-care (01) ==
LOC: HO.HMGCLDS 10:58
PROVIDERS: Visit Provider Nurse Practitioner Family
DX: D64.9 Anemia, unspecified (principal); E11.9 Type 2 diabetes mellitus without complications
CPT/HCPCS: 36415; 80053; 82728; 83540; 84466; 85025

== ENCOUNTER 2022-06-17 13:01 | Outpatient (REF) | payer MEDICARE, SELFPAY ==
[2022-06-17 16:19] LABS: Alanine Aminotransferase 11 U/L (0-31); Albumin Level 4.3 g/dL (3.5-5.0); Alkaline Phosphatase 45 U/L (39-117); Anion Gap 17 (12-20); Aspartate Amino Transferase 20 U/L (5-31); Bilirubin Total 0.6 mg/dL (0.0-1.0); Blood Urea Nitrogen 13 mg/dL (9-16); Carbon Dioxide 23 mmol/L (22-29); Chloride 104 mmol/L (96-108); Estimated Glomerular Filt Rate > 60; Glucose Random 176 mg/dL (60-115); Phosphorus 3.5 mg/dL (2.7-4.5); Potassium 4.7 mmol/L (3.3-5.1); Sodium 139 mmol/L (135-145); Total Protein 7.1 g/dL (6.5-8.0)
[2022-06-17 16:33] LABS: Vitamin D 25-OH Total 30.6 ng/mL (>30)
[2022-06-20 16:29] LABS: Calcium (PTHI) 8.2 mg/dL (8.6-10.4); PTHI 36 pg/mL (16-77)
== END 2022-06-17 13:02 | disposition home or self-care (01) ==
LOC: HO.HMGCLDS 13:01
PROVIDERS: PCP Nurse Practitioner Family; Visit Provider Internal Medicine
DX: M81.0 Age-related osteoporosis without current pathological fracture (principal); E55.9 Vitamin D deficiency, unspecified
CPT/HCPCS: 36415; 80053; 82306; 83970; 84100

== ENCOUNTER 2022-07-07 13:19 | Outpatient (REF) | payer MEDICARE, SELFPAY ==
[2022-07-07 16:51] LABS: Alanine Aminotransferase 14 U/L (0-31); Albumin Level 4.1 g/dL (3.5-5.0); Alkaline Phosphatase 46 U/L (39-117); Anion Gap 14 (12-20); Aspartate Amino Transferase 23 U/L (5-31); Bilirubin Total 0.5 mg/dL (0.0-1.0); Blood Urea Nitrogen 17 mg/dL (9-16); Calcium 9.2 mg/dL (8.4-10.2); Carbon Dioxide 28 mmol/L (22-29); Chloride 100 mmol/L (96-108); Estimated Glomerular Filt Rate > 60; Glucose Random 197 mg/dL (60-115); Phosphorus 2.8 mg/dL (2.7-4.5); Potassium 4.9 mmol/L (3.3-5.1); Sodium 137 mmol/L (135-145); Total Protein 6.9 g/dL (6.5-8.0)
[2022-07-07 17:06] LABS: Vitamin D 25-OH Total 38.5 ng/mL (>30)
[2022-07-10 15:29] LABS: Calcium (PTHI) 9.3 mg/dL (8.6-10.4); PTHI 10 pg/mL (16-77)
== END 2022-07-07 13:20 | disposition home or self-care (01) ==
LOC: HO.HMGCLDS 13:19
PROVIDERS: PCP Nurse Practitioner Family; Visit Provider Internal Medicine
DX: M81.0 Age-related osteoporosis without current pathological fracture (principal); E55.9 Vitamin D deficiency, unspecified
CPT/HCPCS: 36415; 80053; 82306; 83970; 84100

== ENCOUNTER → 2022-07-17 13:40 | Outpatient (BNVA) | payer MEDICARE, SELFPAY | PROVIDERS: PCP Nurse Practitioner Family; Visit Provider Internal Medicine | DX: M81.0 Age-related osteoporosis without current pathological fracture (principal) | CPT/HCPCS: 96372; J0897 ==

== ENCOUNTER 2022-11-17 08:51 | Outpatient (REF) | payer MEDICARE, SELFPAY ==
[2022-11-17 12:03] LABS: Albumin Level 3.9 g/dL (3.5-5.0); Anion Gap 14 (12-20); Blood Urea Nitrogen 13 mg/dL (9-16); Calcium 9.3 mg/dL (8.4-10.2); Carbon Dioxide 25 mmol/L (22-29); Chloride 103 mmol/L (96-108); Cholesterol 112 mg/dL (<200); Estimated Glomerular Filt Rate > 60; Glucose Random 143 mg/dL (60-115); HDL Cholesterol 54 mg/dL (>40); LDL Cholesterol Calculated 48 mg/dL (<100); Sodium 138 mmol/L (135-145); Triglycerides 51 mg/dL (<150)
[2022-11-17 15:02] LABS: Creatinine Urine 68.16 mg/dL; Microalbum/Creatinine Ratio Ur 11.7 ug/mg cr (<30)
== END 2022-11-17 08:52 | disposition home or self-care (01) ==
LOC: HO.HMGCLDS 08:51
PROVIDERS: PCP Nurse Practitioner Family; Visit Provider Internal Medicine Endocrinology, Diabetes & Metabolism
DX: E11.65 Type 2 diabetes mellitus with hyperglycemia (principal); M81.0 Age-related osteoporosis without current pathological fracture
CPT/HCPCS: 36415; 80048; 80061; 82040; 82043; 82570

== ENCOUNTER 2022-11-22 14:03 | Outpatient (AMB) | payer MEDICARE, SELFPAY ==
--- NOTE | 2022-11-22 14:05 | A.OFFVIS_ITS ---
Intake Vital Signs 11/22/22 14:06 Height 4 ft 11 in Weight 98 lb 8.746 oz BMI 19.9 BP 116/58 L Blood Pressure Location Lt brachial Position Sitting Pulse 80 Pulse Source Pulse Oximeter Pulse Oximetry (%) 80 L Intake Visit Reasons: osteoporosis/DOhri Intake Note: New patient to Dr. Lynch present today for Osteoporosis follow up visit. Previously followed by Dr. Easton. 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 She was previously followed by Dr. Davies and prior to that Dr. Rowe. . She last saw Dr. Easton on 12/12/2021 First diagnosed with Osteoporosis in 2005 with her first DEXA revealing severe Osteoporosis of the spine and the hip. She underwent evaluation for secondary causes of Osteoporosis which were WNL, b ut it does not appear a 24 hour urine has ever been completed. She initially was started on treatment with oral bisphosphonates, and even received 1 dose of IV Reclast. She was then started on Forteo by Dr. Rowe in 2013, and completed a 2 year course of this. She was switched to Prolia as of 07/2015 and has continued on this ever since. Her last dose 07/17/2022 No history of pathologic fracture or ONJ. Has 4 servings of dietary calcium per day in the form of milk and yogurt. Does not take a Calcium supplement. Does not take a separate Vitamin D supplement. Denies ever using PPI, anticoagulant, antiepileptic or glucocorticoid medication. Does weight bearing exercise 2 days per week in the form of resistance training. 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 Menses were always regular. . Menopause was age 52. She did not use HRT. Denies history of Kidney stones. Denies family history of Osteoporosis or hip fracture. UTD on dental cleanings and sees dentist every 6 months. No planned upcoming dental work or extractions. DXA dated: 10/04/2021 FINDINGS: AP SPINE L1-L4: Current: BMD 0.880 g/cm2, Z-score -0.1, T-score -2.5, osteoporosis, 2.1% increase from previous, 10.8% increase from baseline (<5% change is not significant). Prior: BMD 0.862 g/cm2. Baseline: BMD 0.794 g/cm2. LEFT FEMUR, NECK: Current: BMD 0.649 g/cm2, Z-score -0.5, T-score -2.8, osteoporosis. Prior: BMD 0.610 g/cm2. Baseline: BMD 0.540 g/cm2. LEFT FEMUR, TOTAL: Current: BMD 0.761 g/cm2, Z-score 0.1, T-score -2.0, osteopenia, 3.1% increase from previous, 7.5% increase from baseline (<5% change is not significant). Prior: BMD 0.738 g/cm2. Baseline: BMD 0.708 g/cm2. Labs: Laboratory Tests 04/08/21 04/08/21 05/20/21 11:40 11:40 08:30 Creatinine Estimated GFR N-Telopeptide X-li nked 25-OH Vitamin D To jose PTH Intact Calcium (PTH Intac t) Ur 24 Hour Volume 2075 Ur Creatinine 24 H our 0.48 L Ur Calcium 24 Hr 62 77 05/20/21 08/31/21 08/31/21 08:30 10:12 10:12 Creatinine 0.80 Estimated GFR > 60 N-Telopeptide X-li nked 25-OH Vitamin D To jose PTH Intact Pending Calcium (PTH Intac t) Pending Ur 24 Hour Volume 2325 Ur Creatinine 24 H our 0.6 L Ur Calcium 24 Hr 12/06/21 12/06/21 12/06/21 07:50 09:31 09:31 Creatinine 0.73 Estimated GFR > 60 N-Telopeptide X-li nked 18 25-OH Vitamin D To jose 50.5 PTH Intact 44 Calcium (PTH Intac t) 9.2 Ur 24 Hour Volume Ur Creatinine 24 H our Ur Calcium 24 Hr PFSH Medical History Anemia Diabetes type 2, uncontrolled Diabetic nephropathy associated with type 2 diabetes mellitus Dyslipidemia Glaucoma Osteoporosis Vitamin D deficiency Surgical History H/O colonoscopy History of ear surgery Hx of cataract extraction Hx of eye surgery Family History Father Heart disease Mother CHF (congestive heart failure) Social History Alcohol intake: never Patient Tobacco Use Status: Never used Tobacco Assessment & Plan Assessment & Plan (1) Osteoporosis: Code(s): M81.0 - Age-related osteoporosis without current pathological fracture Plan: 72 yo female with a history of Osteoporosis, which was quite severe.? She did have significant gains in her BMD with Forteo, and bones have remained stable.? Currently being treated with Prolia. She has not had a recent fracture .? The plan is to transition the patient from Prolia to Reclast infusion in January 2023. Will then follow bone turnover marker 2-3 months later a give a 2nd infusion of the bone turnover marker increases Coding Level of Care Code Est Pt Level 3 (51870) Diagnoses Osteoporosis M81.0
[2022-11-22 14:06] VITALS: BP 116/58; PULSE 80; O2SAT 80; BMI 19.9
== END 2022-11-22 14:40 | disposition home or self-care (01) ==
PROVIDERS: PCP Nurse Practitioner Family; Visit Provider Internal Medicine Endocrinology, Diabetes & Metabolism
DX: M81.0 Age-related osteoporosis without current pathological fracture (principal)
CPT/HCPCS: 99213

== ENCOUNTER → 2022-11-22 14:03 | Outpatient (BNVA) | payer MEDICARE, SELFPAY | PROVIDERS: PCP Nurse Practitioner Family; Visit Provider Internal Medicine Endocrinology, Diabetes & Metabolism | DX: M81.0 Age-related osteoporosis without current pathological fracture (principal); E11.65 Type 2 diabetes mellitus with hyperglycemia; E11.21 Type 2 diabetes mellitus with diabetic nephropathy; Z79.620 Long term (current) use of immunosuppressive biologic | CPT/HCPCS: 99212 ==

== ENCOUNTER 2022-12-05 12:01 | Outpatient (REF) | payer MEDICARE, SELFPAY ==
[2022-12-05 12:51] LABS: Blood Urea Nitrogen 13 mg/dL (9-16); Estimated Glomerular Filt Rate > 60
== END 2022-12-05 12:02 | disposition home or self-care (01) ==
LOC: HO.MDS 12:01
PROVIDERS: Visit Provider Internal Medicine Endocrinology, Diabetes & Metabolism
DX: M81.0 Age-related osteoporosis without current pathological fracture (principal)
CPT/HCPCS: 36415; 82565; 84520; 96365; J3489

== ENCOUNTER 2023-01-31 13:31 | Outpatient (REF) | payer MEDICARE, SELFPAY ==
[2023-01-31 16:02] LABS: MANUAL DIFF FLAG NO
[2023-01-31 16:06] LABS: Eosinophils Absolute Auto 0.1 X10*3/uL (0.0-0.4); Eosinophils Percent Auto 1.8 % (0-4); Hematocrit 28.2 % (37.0-47.0); Hemoglobin 8.8 g/dl (12.0-16.0); Imm Gran Abs Auto 0.01 X10*3/uL (0.00-0.03); Imm Gran Pct Auto 0.2 % (0.0-0.4); Lymphocytes Absolute Auto 1.5 X10*3/uL (1.2-4.9); Lymphocytes Percent Auto 26.8 % (20-40); Mean Corpuscular HGB Conc 31.2 g/dl (31.0-35.0); Mean Corpuscular Hemoglobin 27.9 pg (27.0-33.0); Mean Corpuscular Volume 89.5 fL (80.0-98.0); Mean Platelet Volume 9.5 fL (9.4-12.3); Monocytes Absolute Auto 0.5 X10*3/uL (0.1-1.2); Monocytes Percent Auto 9.2 % (2-11); Neutrophils Absolute Auto 3.4 x10*3/uL (2.0-8.3); Platelet Count 268 X10*3/uL (160-400); Red Blood Count 3.15 X10*6/uL (4.20-5.50); Red Cell Distribution Width 15.4 % (11.0-16.0); White Blood Count 5.5 X10*3/uL (4.8-10.8)
[2023-01-31 16:11] LABS: Estimated Average Glucose 186 mg/dL; Hemoglobin A1c % 8.1 % (<6.0)
[2023-01-31 16:18] LABS: Alanine Aminotransferase 10 U/L (0-31); Albumin Level 3.9 g/dL (3.5-5.0); Alkaline Phosphatase 43 U/L (39-117); Anion Gap 9 (12-20); Aspartate Amino Transferase 20 U/L (5-31); Bilirubin Total 0.3 mg/dL (0.0-1.0); Blood Urea Nitrogen 12 mg/dL (9-16); Calcium 8.9 mg/dL (8.4-10.2); Carbon Dioxide 28 mmol/L (22-29); Chloride 105 mmol/L (96-108); Cholesterol 109 mg/dL (<200); Estimated Glomerular Filt Rate > 60; Glucose Random 348 mg/dL (60-115); HDL Cholesterol 52 mg/dL (>40); Iron 32 mcg/dL (30-160); LDL Cholesterol Calculated 51 mg/dL (<100); Percent Iron Saturation 9 % (15-50); Potassium 4.1 mmol/L (3.3-5.1); Sodium 138 mmol/L (135-145); Total Iron Binding Capacity 365 mcg/dL (228-428); Triglycerides 33 mg/dL (<150); Unsaturated Iron Binding 333 ug/dL
[2023-01-31 16:41] LABS: Vitamin B12 279 pg/mL (200-900)
[2023-01-31 18:00] LABS: Creatinine Urine 56.28 mg/dL; Microalbum/Creatinine Ratio Ur 21.3 ug/mg cr (<30)
[2023-02-05 18:23] LABS: Prot Elec - Albumin 3.6 g/dL (3.8-4.8); Prot Elec - Alpha1 0.3 g/dL (0.2-0.3); Prot Elec - Alpha2 0.9 g/dL (0.5-0.9); Prot Elec - Beta 1 0.5 g/dL (0.4-0.6); Prot Elec - Beta 2 0.5 g/dL (0.2-0.5); Prot Elec - Gamma 0.9 g/dL (0.8-1.7); Prot Elec - Total Protein 6.6 g/dL (6.1-8.1)
== END 2023-01-31 13:32 | disposition home or self-care (01) ==
LOC: HO.HMGCLDS 13:31
PROVIDERS: PCP Nurse Practitioner Family; Visit Provider Nurse Practitioner Family
DX: Z00.00 Encounter for general adult medical examination without abnormal findings (principal); E78.00 Pure hypercholesterolemia, unspecified; E11.9 Type 2 diabetes mellitus without complications; D64.9 Anemia, unspecified
CPT/HCPCS: 36415; 80053; 80061; 82043; 82570; 82607; 83036; 83540; 84165; 85025

== ENCOUNTER → 2023-02-26 09:00 | Outpatient (BNV) | payer MEDICARE, SELFPAY | PROVIDERS: PCP Nurse Practitioner Family; Visit Provider Internal Medicine Medical Oncology | DX: D64.9 Anemia, unspecified (principal) | CPT/HCPCS: 99204; 99213 ==

== ENCOUNTER 2023-04-06 13:20 | Outpatient (REF) | payer MEDICARE, SELFPAY | END 2023-04-06 13:21 | disposition home or self-care (01) | LOC: HO.MAMMO 13:20 | PROVIDERS: PCP Nurse Practitioner Family; Visit Provider Nurse Practitioner Family | DX: Z12.31 Encounter for screening mammogram for malignant neoplasm of breast (principal) | CPT/HCPCS: 77063; 77067 ==

== ENCOUNTER → 2023-04-06 13:30 | Outpatient (BNV) | payer MEDICARE, SELFPAY | PROVIDERS: PCP Nurse Practitioner Family; Visit Provider Radiology Diagnostic Radiology | DX: Z12.31 Encounter for screening mammogram for malignant neoplasm of breast (principal) | CPT/HCPCS: 77063; 77067 ==

== ENCOUNTER 2023-04-19 11:51 | Outpatient (REF) | payer MEDICARE, SELFPAY ==
[2023-04-19 13:40] LABS: Appearance Urine Clear; Color Urine Yellow; Glucose Urine UA >=1000 mg/dL (Negative); Leukocyte Esterase Urine Negative (Negative); Nitrite Urine Negative (Negative); PH 5.5 (5.0-9.0); Specific Gravity - Urine 1.025 (1.005-1.025); UMIC TRIGGER UACC YES; Urine Blood Negative (Negative); Urine Ketones Negative (Negative); Urine Protein Negative (Neg-Trace)
[2023-04-19 14:06] LABS: Hyaline Casts Urine 0-2 /LPF (0-2); RBC Urine 0-2 /HPF (0-2); Squamous Epithelial Cell Urine 0-2 /HPF (0-2); UACC Culture Trigger YES
[2023-04-19 14:59] LABS: Bacteria Urine 3+ (None Seen); WBC Urine 0-5 /HPF (0-5)
== END 2023-04-19 11:52 | disposition home or self-care (01) ==
LOC: HO.HMGCLDS 11:51
PROVIDERS: PCP Nurse Practitioner Family; Visit Provider Nurse Practitioner Family
DX: R35.0 Frequency of micturition (principal)
CPT/HCPCS: 81001; 87086

== ENCOUNTER 2023-04-19 12:14 | Outpatient (AMB) | payer MEDICARE, SELFPAY ==
--- NOTE | 2023-04-19 12:22 | MHC.OFFWIV ---
Intake Vital Signs 04/19/23 12:26 Height 4 ft 11 in Weight 98 lb BMI 19.8 BP 122/70 Blood Pressure Location Rt brachial Position Sitting Pulse 80 Pulse Source Pulse Oximeter Temp 97.8 F Temp Source Oral Pulse Oximetry (%) 98 Oxygen Delivery Method Room Air Intake Visit Reasons: EST/ ear wax removal(lobby) Intake Note: pt is here for c.o ear wax removal Patient Tobacco Use Status: Never used Tobacco Allergies penicillin V Allergy (Unknown, Verified 04/19/23 12:27) Unknown Do you need a note to return to daycare/school/sports/work: No HPI EST/ ear wax removal(lobby) HPI Details This is a 72-year-old female patient who presents today concerned that she has ear wax buildup in both ears. She reports seeing a lot of wax on her hearing aides when she removes them, and also her hearing has been worsening recently. Denies any ear pain or other complaints at this time. [facility] Medical History Anemia Glaucoma Vitamin D deficiency Dyslipidemia Osteoporosis Diabetic nephropathy associated with type 2 diabetes mellitus Diabetes type 2, uncontrolled Surgical History Hx of eye surgery Hx of cataract extraction H/O colonoscopy History of ear surgery Family History Father Heart disease Mother CHF (congestive heart failure) Social History Household Members: None Alcohol intake: never Patient Tobacco Use Status: Never used Tobacco service: No Current occupational status: retired Review of Systems Const All systems reviewed & are unremarkable except as noted in HPI and below Physical Exam Vital Signs: Last Vital Signs Temp 97.8 F 04/19/23 12:26 Pulse 80 04/19/23 12:26 BP 122/70 04/19/23 12:26 Pulse Ox 98 04/19/23 12:26 Oxygen Delivery Method Room Air 04/19/23 12:26 BMI result Body Mass Index 19.8 Const General: cooperative and no acute distress HEENT Head: Yes normal to inspection Ears: Abnormal EAC present foreign body (hearing aid dome) on the left, hearing grossly impaired bilaterally and unable to visualize TM (cerumen) bilaterally General nose exam: Normal external nose present and Normal nasal mucous membranes and turbinates present Face and sinus: Yes normal facial exam Mouth: Normal oral and palatal mucosa present Neck Neck: Yes no lymphadenopathy Resp Effort & Inspection: normal respiratory effort Skin General skin exam: no rashes or lesions noted Extrem General: Yes no clubbing, cyanosis or edema Psych Appearance: grossly normal Mental Status: mental status grossly normal Speech and movement: Normal speech and movement present Office Procedures Cerumen Removal From which ear canal was the cerumen removed: bilateral Removal: irrigation Notes: patient tolerated procedure well, no complications and ear canal clear [id number] Irrigation/Lavage Assessment & Plan Assessment & Plan (1) Bilateral impacted cerumen: Code(s): H61.23 - Impacted cerumen, bilateral Plan: Patient had a dome from her hearing aid lodged into left ear canal. This was removed with forceps without complication. Irrigation of ears was then done bilaterally with good effect. Ear canals clear and TMs appear normal. Patient with significant hearing improvement following foreign body removal and irrigation. Advised to not use Q-tips, to check hearing aids when removing them to make sure all parts are intact, and she may use Debrox drops if she feels wax is accumulating again. Can return to the clinic as needed. Patient agrees to plan. (2) Foreign body of left ear: Code(s): T16.2XXA - Foreign body in left ear, initial encounter Qualifiers: Encounter type: initial encounter Qualified Code(s): T16.2XXA - Foreign body in left ear, initial encounter Plan: Dome of hearing aid removed as above. Coding Level of Care Code Est Pt Level 3 (81120) Diagnoses Bilateral impacted cerumen H61.23 Foreign body of left ear, initial encounter T16.2XXA Encounter type: initial encounter CPT Codes Office Procedure - CPT: 54542-Vcn Irrigation/Lavage ([id number])
[2023-04-19 12:26] VITALS: BP 122/70; PULSE 80; TEMP 36.6; O2SAT 98; BMI 19.8
== END 2023-04-19 13:04 | disposition home or self-care (01) ==
PROVIDERS: PCP Nurse Practitioner Family; Visit Provider Nurse Practitioner Family
DX: T16.2XXA Foreign body in left ear, initial encounter (principal); H61.23 Impacted cerumen, bilateral
CPT/HCPCS: 69200; 99213

== ENCOUNTER 2023-04-25 13:21 | Outpatient (AMB) | payer MEDICARE, SELFPAY ==
--- NOTE | 2023-04-25 13:23 | MHC.OFFVIS ---
Intake Vital Signs 04/25/23 13:24 Height 4 ft 11 in Weight 98 lb 5.219 oz BMI 19.9 BP 102/64 Blood Pressure Location Lt brachial Position Sitting Pulse 83 Pulse Source Pulse Oximeter Intake Visit Reasons: f/u osteporosis-confirmed Intake Note: Patient present today for Osteoporosis follow up visit. Cryptographic Technician Required: No Accompanied by: Self / Same As Patient Allergies penicillin V Allergy (Unknown, Verified 04/25/23 13:30) Unknown Medication List - Last Reconciled 04/25/23 by Henry Lynch MD atorvastatin 40 mg PO DAILY blood sugar diagnostic (Accu-Chek Guide test strips) As directed twice a day blood-glucose meter As directed calcium citrate-vitamin D3 200 mg-6.25 mcg (250 unit) (Citracal-D3 Petites) 2 tabs PO TID 30 days dorzolamide-timolol 22.3-6.8 mg/mL 1 drp ophthalmic (eye) BID empagliflozin (Jardiance) 10 mg PO DAILY ferrous sulfate 325 mg PO DAILY lancing device with lancets (Accu-Chek FastClix Lancing Device kit) As directed sitagliptin phos-metformin 50-1,000 mg ER (Janumet XR) 2 tabs PO DAILY vit C,Z-Gn-ninaa-lutein-zeaxan 250-90-40-1 mg 1 cap PO BID HPI HPI Comments History of Present Illness Details 72 YO Female with PMHx Osteoporosis who is seen in F/U for the same. She was previously followed by Dr. Davies and prior to that Dr. Rowe. . She last saw Dr. Easton on 12/12/2021 First diagnosed with Osteoporosis in 2005 with her first DEXA revealing severe Osteoporosis of the spine and the hip. She underwent evaluation for secondary causes of Osteoporosis which were WNL, but it does not appear a 24 hour urine has ever been completed. She initially was started on treatment with oral bisphosphonates, and even received 1 dose of IV Reclast. She was then started on Forteo by Dr. Rowe in 2013, and completed a 2 year course of this. She was switched to Prolia as of 07/2015 and has continued on this ever since. Her last dose 07/17/2022 No history of pathologic fracture or ONJ. Has 4 servings of dietary calcium per day in the form of milk and yogurt. Does not take a Calcium supplement. Does not take a separate Vitamin D supplement. Denies ever using PPI, anticoagulant, antiepileptic or glucocorticoid medication. Does weight bearing exercise 2 days per week in the form of resistance training. 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 Menses were always regular. . Menopause was age 52. She did not use HRT. Denies history of Kidney stones. Denies family history of Osteoporosis or hip fracture. UTD on dental cleanings and sees dentist every 6 months. No planned upcoming dental work or extractions. DXA dated: 10/04/2021 FINDINGS: AP SPINE L1-L4: Current: BMD 0.880 g/cm2, Z-score -0.1, T-score -2.5, osteoporosis, 2.1% increase from previous, 10.8% increase from baseline (<5% change is not significant). Prior: BMD 0.862 g/cm2. Baseline: BMD 0.794 g/cm2. LEFT FEMUR, NECK: Current: BMD 0.649 g/cm2, Z-score -0.5, T-score -2.8, osteoporosis. Prior: BMD 0.610 g/cm2. Baseline: BMD 0.540 g/cm2. LEFT FEMUR, TOTAL: Current: BMD 0.761 g/cm2, Z-score 0.1, T-score -2.0, osteopenia, 3.1% increase from previous, 7.5% increase from baseline (<5% change is not significant). Prior: BMD 0.738 g/cm2. Baseline: BMD 0.708 g/cm2. Labs: Laboratory Tests 04/08/21 04/08/21 05/20/21 11:40 11:40 08:30 Creatinine Estimated GFR N-Telopeptide X-li nked 25-OH Vitamin D To jose PTH Intact Calcium (PTH Intac t) Ur 24 Hour Volume 2075 Ur Creatinine 24 H our 0.48 L Ur Calcium 24 Hr 62 77 05/20/21 08/31/21 08/31/21 08:30 10:12 10:12 Creatinine 0.80 Estimated GFR > 60 N-Telopeptide X-li nked 25-OH Vitamin D To jose PTH Intact Pending Calcium (PTH Intac t) Pending Ur 24 Hour Volume 2325 Ur Creatinine 24 H our 0.6 L Ur Calcium 24 Hr 12/06/21 12/06/21 12/06/21 07:50 09:31 09:31 Creatinine 0.73 Estimated GFR > 60 N-Telopeptide X-li nked 18 25-OH Vitamin D To jose 50.5 PTH Intact 44 Calcium (PTH Intac t) 9.2 Ur 24 Hour Volume Ur Creatinine 24 H our Ur Calcium 24 Hr PFSH Medical History Anemia Glaucoma Vitamin D deficiency Dyslipidemia Osteoporosis Diabetic nephropathy associated with type 2 diabetes mellitus Diabetes type 2, uncontrolled Surgical History Hx of eye surgery Hx of cataract extraction H/O colonoscopy History of ear surgery Family History Father Heart disease Mother CHF (congestive heart failure) Social History Household Members: None Alcohol intake: never Patient Tobacco Use Status: Never used Tobacco service: No Current occupational status: retired Physical Exam Vital Signs: Last Vital Signs Pulse 83 04/25/23 13:24 BP 102/64 04/25/23 13:24 BMI result Body Mass Index 19.9 Assessment & Plan Assessment & Plan (1) Osteoporosis: Code(s): M81.0 - Age-related osteoporosis without current pathological fracture Plan: 72 yo female with a history of Osteoporosis, which was quite severe.? She did have significant gains in her BMD with Forteo, and bones have remained stable.? Was treated with Prolia and transition to a dose of Reclast She has not had a recent fracture .? The plan is to check a bone turnover marker. If remains suppressed will hold off on pharmacologic therapy and continue calcium and vitamin-D. Will recheck DEXA bone density of hip and spine in 5 months prior to return appointment Orders: Orders Collagen Crosslinks NTX Today M81.0 - Age-related osteoporosis without current pathological fracture XR DEXA axial skeleton 5 Months M81.0 - Age-related osteoporosis without current pathological fracture Coding Level of Care Code Est Pt Level 3 (17638) Diagnoses Osteoporosis M81.0
[2023-04-25 13:24] VITALS: BP 102/64; PULSE 83; BMI 19.9
== END 2023-04-25 13:43 | disposition home or self-care (01) ==
PROVIDERS: PCP Nurse Practitioner Family; Visit Provider Internal Medicine Endocrinology, Diabetes & Metabolism
DX: M81.0 Age-related osteoporosis without current pathological fracture (principal)
CPT/HCPCS: 99213

== ENCOUNTER → 2023-04-25 13:21 | Outpatient (BNVA) | payer MEDICARE, SELFPAY | PROVIDERS: PCP Nurse Practitioner Family; Visit Provider Internal Medicine Endocrinology, Diabetes & Metabolism | DX: M81.0 Age-related osteoporosis without current pathological fracture (principal) | CPT/HCPCS: 99212 ==

== ENCOUNTER 2023-05-05 14:25 | Emergency (ER) | payer MEDICARE, SELFPAY ==
--- NOTE | 2023-05-05 14:28 | ECG_ITS ---
Test Reason : PALPITATIONS Blood Pressure : / mmHG Vent. Rate : 091 BPM Atrial Rate : 091 BPM P-R Int : 114 ms QRS Dur : 080 ms QT Int : 354 ms P-R-T Axes : 077 064 056 degrees QTc Int : 435 ms Normal sinus rhythm Normal ECG No previous ECGs available Referred By: Generic ED Physician Electronically Signed By:Montrell Jonas
[2023-05-05 14:39] VITALS: BP 105/56; BP 143/64; PULSE 101; PULSE 96; RESP 15; TEMP 36.8; O2SAT 100; O2SAT 99; BMI 19.8
--- NOTE | 2023-05-05 16:53 | PC.NURSE ---
pt a&o x4, calm, and cooperative. ambulates to bathroom independently with steady gait. 22G IV placed to left forearm, labs drawn and sent. pt has no complaints lianne. resting quietly on stretcher in no apparent distress. on bedside monitor. HR in low 90s. rr even/unlabored. awaiting lab results. plan of care ongoing.
[2023-05-05 16:54] LABS: MANUAL DIFF FLAG NO
[2023-05-05 16:57] LABS: Eosinophils Absolute Auto 0.1 X10*3/uL (0.0-0.4); Hematocrit 32.7 % (37.0-47.0); Hemoglobin 10.2 g/dl (12.0-16.0); Imm Gran Abs Auto 0.02 X10*3/uL (0.00-0.03); Imm Gran Pct Auto 0.3 % (0.0-0.4); Lymphocytes Absolute Auto 1.5 X10*3/uL (1.2-4.9); Lymphocytes Percent Auto 24.3 % (20-40); Mean Corpuscular HGB Conc 31.2 g/dl (31.0-35.0); Mean Corpuscular Hemoglobin 27.2 pg (27.0-33.0); Mean Corpuscular Volume 87.2 fL (80.0-98.0); Mean Platelet Volume 8.9 fL (9.4-12.3); Monocytes Absolute Auto 0.5 X10*3/uL (0.1-1.2); Monocytes Percent Auto 7.7 % (2-11); Neutrophils Absolute Auto 4.1 x10*3/uL (2.0-8.3); Neutrophils Percent Auto 66.7 % (45-73); Platelet Count 276 X10*3/uL (160-400); Red Blood Count 3.75 X10*6/uL (4.20-5.50); Red Cell Distribution Width 14.9 % (11.0-16.0); White Blood Count 6.1 X10*3/uL (4.8-10.8)
[2023-05-05 16:59] LABS: Appearance Urine Clear; Color Urine Yellow; Glucose Urine UA >=1000 mg/dL (Negative); Leukocyte Esterase Urine Negative (Negative); Nitrite Urine Negative (Negative); Specific Gravity - Urine 1.015 (1.005-1.025); UMIC TRIGGER UACC YES; Urine Blood Negative (Negative); Urine Ketones Negative (Negative); Urine Protein Negative (Neg-Trace)
[2023-05-05 17:15] LABS: COVID-19 Test Negative (Negative); IDNOW Serial# 08D9AD1C; IDNOW Serial# 152EDE1D; Influenza A Negative (Negative); Influenza B2 Negative (Negative)
[2023-05-05 17:20] LABS: Alanine Aminotransferase 17 U/L (0-31); Albumin Level 4.4 g/dL (3.5-5.0); Alkaline Phosphatase 49 U/L (39-117); Anion Gap 17 (12-20); Aspartate Amino Transferase 26 U/L (5-31); Bilirubin Direct < 0.2 mg/dL (0.0-0.5); Bilirubin Total 0.2 mg/dL (0.0-1.0); Blood Urea Nitrogen 23 mg/dL (9-16); Carbon Dioxide 26 mmol/L (22-29); Chloride 101 mmol/L (96-108); Creatinine Clr Calc Pharmacy 46.1; Estimated Glomerular Filt Rate > 60; Glucose Random 128 mg/dL (60-115); Magnesium 1.5 mg/dL (1.6-2.6); Potassium 4.2 mmol/L (3.3-5.1); Sodium 140 mmol/L (135-145); Total Protein 7.9 g/dL (6.5-8.0)
[2023-05-05 17:22] LABS: Troponin-I High Sensitivity < 2.7 ng/L (<3.5-17.0)
--- NOTE | 2023-05-05 17:27 | ED_ITS ---
HPI - Arrhythmia/Palpitations General Chief Complaint: Arrhythmia/Palpitations Stated Complaint: PALPITATIONS Time Seen by Provider: 05/05/23 16:08 Source: patient Mode of arrival: EMS History of Present Illness HPI narrative: 72-year-old female who has been experiencing intermittent racing heart, palpitations, she has been seen by the PCP for this and has an appointment for follow-up in May and states that today she noticed that once again she had a racing heart and checked herself on a monitor that she purchased from [employer] and it showed that her heart rate was ranging between 110-120s. She otherwise denies any fever, chills, nausea, vomiting, abdominal discomfort or diarrhea denies any dysuria. Related Data Home Medications Medication Instructions Recorded Confirmed lancing device with lancets kit #1 ea 02/27/20 03/29/23 (Accu-Chek FastClix Lancing Device kit) dorzolamide 22.3 mg-timolol 6.8 1 drp ophthalmic (eye) BID 09/24/20 03/29/23 mg/mL eye drops vit C 250 mg-vit E 90 mg-zinc 40 1 cap PO BID 09/24/20 03/29/23 mg-copper 1 [id number] capsule empagliflozin 10 mg tablet 10 mg PO DAILY 04/19/23 (Jardiance) sitagliptin phos 50 mg-metformin 2 tab PO DAILY 04/19/23 ER 1,000 mg tablet,extend rel 24h mp (Janumet XR) Previous Rx's Medication Instructions Recorded blood-glucose meter #1 ea 08/25/21 blood sugar diagnostic (Accu-Chek #200 ea 09/02/21 Guide test strips) atorvastatin 40 mg tablet 40 mg PO DAILY #90 tabs 01/20/22 calcium citrate 200 mg 2 tab PO TID 30 days #180 tabs 06/22/22 calcium-vitamin D3 6.25 mcg (250 unit) tablet (Citracal-D3 Petites) ferrous sulfate 325 mg (65 mg 325 mg PO DAILY #90 tabs 02/26/23 iron) tablet Allergies Allergy/AdvReac Type Severity Reaction Status Date / Time penicillin V Allergy Unknown Unknown Verified 04/25/23 13:30 Review of Systems 2 Review of Systems: Pertinent positives and negatives as stated in HPI PMFSH Past Medical History Source: nursing notes reviewed Medical History Anemia Glaucoma Vitamin D deficiency Dyslipidemia Osteoporosis Diabetic nephropathy associated with type 2 diabetes mellitus Diabetes type 2, uncontrolled Surgical History Hx of eye surgery Hx of cataract extraction H/O colonoscopy History of ear surgery Family History Family History Father Heart disease Mother CHF (congestive heart failure) Social History Social History Household Members: None Alcohol intake: never Patient Tobacco Use Status: Never used Tobacco Smoked in Last 30 Days: No Use of substances other than those prescribed or required for medical reasons: No Advance Directives: No Advance Directives Information Provided: No service: No Current occupational status: retired Physical Exam 2 Vital Signs: Vital Signs: Last Vital Signs Temp 98.2 F 05/05/23 17:47 Pulse 94 05/05/23 17:52 Resp 15 05/05/23 17:47 BP 127/57 L 05/05/23 17:52 Pulse Ox 100 05/05/23 17:47 O2 Del Method Room Air 05/05/23 17:47 BMI result Body Mass Index 19.8 VITAL SIGNS: Reviewed. GENERAL: Well developed, well nourished, in no acute distress. HEAD: Normocephalic/atraumatic EYES: PERRLA, EOMI EARS: Ext canals without abnormality, TMs non-bulging and non-erythematous NOSE: Nares patent bilateral OROPHARYNX: no oral lesions noted, posterior pharynx clear and non-erythematous without noted tonsillar enlargement/erythema/exudates NECK: Supple, no adenopathy LUNGS: Normal breath sounds. No adventitious sounds or accessory muscle use. SpO2<99> CARDIOVASCULAR: Regular rate and rhythm without noted murmurs ABDOMEN: Soft, non-tender, non-distended with bowel sounds. MUSCULOSKELETAL: No tenderness, deformities, or effusions noted on gross inspection. EXTREMITIES: No cyanosis, clubbing or edema. SKIN: Inspection of the skin reveals no rashes NEUROLOGIC: Alert and oriented x 4. Strength and sensation to light touch were grossly intact x 4. Medical Decision Making Medical Decision Making MDM Narrative: 72-year-old female with history and clinical presentation, DDX: Benign palpitations, infection/electrolyte/arrhythmia/orthostatics I reviewed all investigations and hematologic indices are negative for leukocytosis/left shift and patient has a chronic normocytic anemia no thrombocytopenia. Chemistries disease do not demonstrate an TERI or electrolyte/liver enzyme derangements. High sensitivity troponin is undetectable and magnesium level is noted be low and patient was repleted with 400 mg of magnesium oxide. Urinalysis is negative for UTI or hematuria. Viral testing negative for COVID-19/influenza. EKG is not significant for deranged QRS/QTC/QTC, no evidence to suggest atrial fibrillation or atrial flutter. Orthostatics are negative in my interpretation is these may be benign palpitations and patient does have appropriate follow-up and was instructed to limit caffeine intake. Differential Diagnosis Differential Diagnoses: The differential diagnosis associated with the presentation includes Please see the discussion above Admission/Observation Consideration of admission/observation: Escalation of care including admission/observation considered Please see the discussion above Lab Data MDM Lab Attestation statement: I reviewed the patient's lab results. Please see the discussion above 05/05/23 16:48 05/05/23 16:48 Labs: Lab Results 05/05/23 Range/Units 16:48 WBC 6.1 (4.8-10.8) X10*3/uL RBC 3.75 L (4.20-5.50) X10*6/uL Hgb 10.2 L (12.0-16.0) g/dl Hct 32.7 L (37.0-47.0) % MCV 87.2 (80.0-98.0) fL MCH 27.2 (27.0-33.0) pg MCHC 31.2 (31.0-35.0) g/dl RDW 14.9 (11.0-16.0) % Plt Count 276 (160-400) X10*3/uL MPV 8.9 L (9.4-12.3) fL Immature Gran % (Auto) 0.3 (0.0-0.4) % Neut % (Auto) 66.7 (45-73) % Lymph % (Auto) 24.3 (20-40) % [place] % (Auto) 7.7 (2-11) % Eos % (Auto) 1.0 (0-4) % Baso % (Auto) 0.0 (0-2) % Lymph # (Auto) 1.5 (1.2-4.9) X10*3/uL [place] # (Auto) 0.5 (0.1-1.2) X10*3/uL Eos # (Auto) 0.1 (0.0-0.4) X10*3/uL Baso # (Auto) 0.0 (0.0-0.2) X10*3/uL Abs Immat Gran (auto) 0.02 (0.00-0.03) X10*3/uL Absolute Neuts (auto) 4.1 (2.0-8.3) x10*3/uL Absolute Nucleated RBC 0.000 (0.0-0.012) X10*3/uL Nucleated RBC % (auto) 0.0 (0.0-0.2) /100WBC Sodium 140 (135-145) mmol/L Potassium 4.2 (3.3-5.1) mmol/L Chloride 101 (96-108) mmol/L Carbon Dioxide 26 (22-29) mmol/L Anion Gap 17 (12-20) BUN 23 H (9-16) mg/dL Creatinine 0.73 (0.5-1.4) mg/dL Estim Creat Clear Calc 46.1 Estimated GFR > 60 Random Glucose 128 H (60-115) mg/dL Calcium 10.0 (8.4-10.2) mg/dL Magnesium 1.5 L (1.6-2.6) mg/dL Total Bilirubin 0.2 (0.0-1.0) mg/dL Direct Bilirubin < 0.2 (0.0-0.5) mg/dL AST 26 (5-31) U/L ALT 17 (0-31) U/L Alkaline Phosphatase 49 (39-117) U/L Troponin I High Sens < 2.7 (<3.5-17.0) ng/L Total Protein 7.9 (6.5-8.0) g/dL Albumin 4.4 (3.5-5.0) g/dL TSH 0.99 (0.32-4.0) uIU/mL Urine Color Yellow Urine Appearance Clear Urine pH 5.0 (5.0-9.0) Ur Specific [place] 1.015 (1.005-1.025) Urine Protein Negative (Neg-Trace) mg/dL Urine Glucose (UA) >=1000 H (Negative) mg/dL Urine Ketones Negative (Negative) mg/dL Urine Blood Negative (Negative) Urine Nitrite Negative (Negative) Ur Leukocyte Esterase Negative (Negative) Urine RBC 0-2 (0-2) /HPF Urine WBC 0-5 (0-5) /HPF Ur Squamous Epith Cells 0-2 (0-2) /HPF Urine Bacteria 1+ (None Seen) Hyaline Casts 0-2 (0-2) /LPF COVID-19 (MELISSA) Negative (Negative) COVID-19 Clin Com See Note Influenza Type A (MATY) Negative (Negative) Influenza Type B (MATY) Negative (Negative) Influenza A & B Note See Note Independent Interpretation I performed an independent interpretation of an: EKG Interpretation: Normal sinus rhythm, HR-91, no STEMI, CT/QRS/QTC is within normal limits. External Record Review External record reviewed: Outpatient record and Prior outpatient labs Chronic Conditions Patient?s care impacted by: Diabetes Critical Care Time Critical Care Time Critical Care Time: Yes Total Critical Care Time: 45 Attestation: I personally attest to this time spent taking care of the patient. Discharge Plan Discharge Clinical Impression: Heart palpitations Patient Disposition: Home, Self-Care Instructions: Heart Palpitations (ED), Hypomagnesemia (ED) Additional Instructions: 1. Resume all home medications as prescribed. 2. Please follow-up with your primary care doctor on Sunday morning. Also, please consider decreasing the amount of caffeine intake. Return to the ER for any worsening symptoms. Prescriptions: No Action (DME) blood-glucose meter Kit See Rx Instructions .ROUTE .MEDSUPPLY Qty: 1 0RF Rx Instructions: As directed (DME) Accu-Chek Guide test strips Strip See Rx Instructions .Route Qty: 200 3RF Rx Instructions: As directed twice a day atorvastatin 40 mg tablet 40 mg PO DAILY Qty: 90 0RF calcium citrate-vitamin D3 [Citracal-D3 Petites] 200 mg-6.25 mcg (250 unit) tablet 2 tab PO TID 30 Days Qty: 180 3RF ferrous sulfate 325 mg (65 mg iron) Tablet 325 mg PO DAILY Qty: 90 5RF Jardiance 10 mg tablet 10 mg PO DAILY Janumet XR 50-1,000 mg tablet, ER multiphase 24 hr 2 tab PO DAILY (DME) lancing device with lancets [Accu-Chek FastClix Lancing Dev] Kit See Rx Instructions .ROUTE .MEDSUPPLY Qty: 1 Rx Instructions: As directed dorzolamide-timolol 22.3-6.8 mg/mL drops 1 drp ophthalmic (eye) BID PreserVision AREDS-2 250-90-40-1 mg capsule 1 cap PO BID Referrals: Mary Hdez CNP [Primary Care Provider] -
[2023-05-05 17:34] LABS: TSH reflex Free T4 0.99 uIU/mL (0.32-4.0)
[2023-05-05 17:47] VITALS: BP 120/54; PULSE 83; RESP 15; TEMP 36.8; O2SAT 100
[2023-05-05 17:50] VITALS: BP 115/65; PULSE 92
[2023-05-05 17:52] VITALS: BP 127/57; PULSE 94
[2023-05-05 17:57] LABS: Bacteria Urine 1+ (None Seen); Hyaline Casts Urine 0-2 /LPF (0-2); RBC Urine 0-2 /HPF (0-2); Squamous Epithelial Cell Urine 0-2 /HPF (0-2); WBC Urine 0-5 /HPF (0-5)
[2023-05-05] MEDS: Magnesium Oxide 400 MG TABLET PO (18:59)
[2023-05-05 19:06] VITALS: BP 115/56; PULSE 78; RESP 17; TEMP 36.7; O2SAT 100
== END 2023-05-05 19:17 | disposition home or self-care (01) ==
PROVIDERS: Physician Assistant; Emergency Provider Student in an Organized Health Care Education/Training Program; PCP Nurse Practitioner Family
DX: R00.2 Palpitations (principal); Z11.52 Encounter for screening for COVID-19; E11.9 Type 2 diabetes mellitus without complications; E78.5 Hyperlipidemia, unspecified; E55.9 Vitamin D deficiency, unspecified; D64.9 Anemia, unspecified; Z79.02 Long term (current) use of antithrombotics/antiplatelets; Z79.899 Other long term (current) drug therapy
CPT/HCPCS: 36415; 80048; 80076; 81001; 81003; 83735; 84443; 84484; 85025; 87502; 87635; 93005; 99283; 99285

== ENCOUNTER → 2023-05-05 14:28 | Outpatient (BNV) | payer MEDICARE, SELFPAY | PROVIDERS: Emergency Provider Student in an Organized Health Care Education/Training Program; PCP Nurse Practitioner Family; Visit Provider Internal Medicine Cardiovascular Disease | DX: R00.2 Palpitations (principal) | CPT/HCPCS: 93010 ==

== ENCOUNTER → 2023-05-25 10:40 | Outpatient (REF) | payer MEDICARE, SELFPAY ==
--- NOTE | 2023-05-25 10:45 | CA_ITS ---
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 The visually estimated ejection fraction is between 60-65%. Diastolic function is normal for age. - Normal right ventricular cavity size and systolic function. - There is mild aortic valve stenosis. Findings Left Ventricle Normal left ventricular size, thickness, systolic function, and wall motion. The visually estimated ejection fraction is between 60-65%. Diastolic function is normal for age. Right Ventricle Normal right ventricular cavity size and systolic function. Atria The left atrium is normal in size. The right atrium is normal in size. Aortic Valve There is a normal trileaflet aortic valve. There is moderate calcification of the aortic valve. There is mild aortic valve stenosis. There is no aortic valve regurgitation. Mitral Valve The mitral valve appears normal. There is trace mitral valve regurgitation. There is no mitral valve stenosis. Pulmonic Valve The pulmonic valve is likely normal. Tricuspid Valve Normal tricuspid valve structure. There is trace tricuspid valve regurgitation. Normal right atrial pressure. There is no evidence of pulmonary hypertension. Great Vessels All visible segments of the aorta are normal in size. The visualized portions of the pulmonary artery and branches are normal. Venous The inferior vena cava is normal in size and collapses greater than 50% with inspiration. Pericardium/Pleural There is no evidence of pericardial effusion. Prior Study Comparison No prior study available for comparison. Measurements 2D Linear Measurements IVSd: 0.87 0.6-0.9/0.6-1.0 cm LVIDd: 4.01 3.9-5.3/4.2-5.9 cm LVIDd Index: 2.95 2.4-3.2/2.2-3.1 cm/m2 LVIDs: 2.46 2.0-3.6 cm LVPWd: 0.54 0.7-1.1 cm Ao Root: 2.60 2.1-3.5 cm LA Diam: 2.70 2.7-3.8/3.0-4.0 cm LAIDs Index: 1.99 1.5-2.3 cm/m2 LV Mass: 98.35 67-162/88-224 g LV Mass Index: 72.31 43-95/49-115 g/m2 LVOT Diam: 1.80 3.0+(-)1.3 cm 2D Systolic Function EF 4C: 59.40 >55% EF 2C: 59.80 >55% EF BiP: 60.00 >55% Mitral Valve MV Pk E: 0.86 MV PK A: 0.87 MV Decel Time: 130.00 E/A: 1.00 E'Lateral: 7.40 E'Medial: 7.72 E/E' Med: 11.10 E/E' Lat: 11.60 PHT: 38.00 MVA PHT: 5.79 Decel [place]: 6.58 Aortic Valve AoV Pk Romain: 2.08 AoV Mn Romain: 1.53 AoV VTI: 0.45 AoV Pk Grad: 17.00 Aov Mn Grad: 10.00 ANTOINETTE Cont.VTI: 1.12 LVOT LVOT Pk Romain: 0.89 LVOT Mn Romain: 0.66 LVOT VTI: 0.20 LVOT Pk Grad: 3.00 LVOT Mn Grad: 2.00 LVOT Diam: 1.80 LVOT Area: 2.54 Diastolic Function MV Pk E: 0.86 MV Pk A: 0.87 E/A: 1.00 E'Medial: 7.72 E/E' Med: 11.10 E' Laterial: 7.40 E/E' Lat: 11.60 Right Ventricle TAPSE (mm): 15.40 TVS' Romain: 10.00 Tricuspid Valve TR Pk Romain: 2.39 TR Pk Grad: 23.00 RA Press: 3.00 RVSP: 26.00 Great Vessels Aorta Ao Root-2D: 2.60 2.0-3.7 cm Ao Asc: 2.90 2.1-3.4 cm Pulmonary Veins Pulm Vein S/D 1.30 Pulmonary Valve PV Pk Romain: 1.06 Peak PV Grad: 4.00 Updated in Other Vendor System with Status of Final Montrell Jonas MD electronically signed on 05/27/2023 6:33:05 PM with status of Final
== END ==
LOC: HO.CARD 10:40
PROVIDERS: PCP Nurse Practitioner Family; Visit Provider Nurse Practitioner Family
DX: R01.1 Cardiac murmur, unspecified (principal); R06.09 Other forms of dyspnea
CPT/HCPCS: 93306

== ENCOUNTER → 2023-05-25 10:45 | Outpatient (BNV) | payer MEDICARE, SELFPAY | PROVIDERS: PCP Nurse Practitioner Family; Visit Provider Internal Medicine Cardiovascular Disease | DX: I35.0 Nonrheumatic aortic (valve) stenosis (principal) | CPT/HCPCS: 93306 ==

== ENCOUNTER 2023-10-01 14:20 | Outpatient (REF) | payer MEDICARE, SELFPAY ==
[2023-10-01 15:58] LABS: Blood Urea Nitrogen 9 mg/dL (9-16); Calcium 9.8 mg/dL (8.4-10.2); Estimated Glomerular Filt Rate > 60
== END 2023-10-01 14:21 | disposition home or self-care (01) ==
LOC: HO.LAB 14:20
PROVIDERS: Visit Provider Internal Medicine Endocrinology, Diabetes & Metabolism
DX: M81.0 Age-related osteoporosis without current pathological fracture (principal); E11.65 Type 2 diabetes mellitus with hyperglycemia
CPT/HCPCS: 36415; 82310; 82565; 84520

== ENCOUNTER 2023-10-24 13:12 | Outpatient (AMB) | payer MEDICARE, SELFPAY ==
--- NOTE | 2023-10-24 13:20 | MHC.OFFVIS ---
Vital Signs 10/24/23 13:21 Height 4 ft 11 in Weight 85 lb 8.63 oz BMI 17.3 BP 84/50 L Blood Pressure Location Lt brachial Position Sitting Pulse 60 Pulse Source Pulse Oximeter Intake Visit Reasons: f/u osteporosis Intake Note: Patient present today for Osteoporosis follow up visit. Senior Private Client Advisor Required: No Accompanied by: Self / Same As Patient Allergies penicillin V Allergy (Unknown, Verified 10/24/23 13:30) Unknown Medication List - Last Reconciled 10/24/23 by Henry Lynch MD atorvastatin 40 mg PO DAILY blood sugar diagnostic (Accu-Chek Guide test strips) As directed twice a day blood-glucose meter As directed calcium citrate-vitamin D3 200 mg-6.25 mcg (250 unit) (Citracal-D3 Petites) 2 tabs PO TID 30 days dorzolamide-timolol 22.3-6.8 mg/mL 1 drp ophthalmic (eye) BID empagliflozin (Jardiance) 10 mg PO DAILY ferrous sulfate 325 mg PO DAILY lancing device with lancets (Accu-Chek FastClix Lancing Device kit) As directed sitagliptin phos-metformin 50-1,000 mg ER (Janumet XR) 2 tabs PO DAILY vit C,C-Py-ibbxa-lutein-zeaxan 250-90-40-1 mg 1 cap PO BID HPI Comments Details: 72 YO Female with PMHx Osteoporosis who is seen in F/U for the same. She was previously followed by Dr. Davies and prior to that Dr. Rowe. . First diagnosed with Osteoporosis in 2005 with her first DEXA revealing severe Osteoporosis of the spine and the hip. She underwent evaluation for secondary causes of Osteoporosis which were WNL, but it does not appear a 24 hour urine has ever been completed. She initially was started on treatment with oral bisphosphonates, and even received 1 dose of IV Reclast. She was then started on Forteo by Dr. Rowe in 2013, and completed a 2 year course of this. She was switched to Prolia as of 07/2015 and has continued on this ever since. Her last dose 07/17/2022 No history of pathologic fracture or ONJ. Has 4 servings of dietary calcium per day in the form of milk and yogurt. Does not take a Calcium supplement. Does not take a separate Vitamin D supplement. Denies ever using PPI, anticoagulant, antiepileptic or glucocorticoid medication. Does weight bearing exercise 2 days per week in the form of resistance training. 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 Menses were always regular. . Menopause was age 52. She did not use HRT. Denies history of Kidney stones. Denies family history of Osteoporosis or hip fracture. UTD on dental cleanings and sees dentist every 6 months. No planned upcoming dental work or extractions. DXA dated: 10/04/2021 FINDINGS: AP SPINE L1-L4: Current: BMD 0.880 g/cm2, Z-score -0.1, T-score -2.5, osteoporosis, 2.1% increase from previous, 10.8% increase from baseline (<5% change is not significant). Prior: BMD 0.862 g/cm2. Baseline: BMD 0.794 g/cm2. LEFT FEMUR, NECK: Current: BMD 0.649 g/cm2, Z-score -0.5, T-score -2.8, osteoporosis. Prior: BMD 0.610 g/cm2. Baseline: BMD 0.540 g/cm2. LEFT FEMUR, TOTAL: Current: BMD 0.761 g/cm2, Z-score 0.1, T-score -2.0, osteopenia, 3.1% increase from previous, 7.5% increase from baseline (<5% change is not significant). Prior: BMD 0.738 g/cm2. Baseline: BMD 0.708 g/cm2. Labs: Laboratory Tests 04/08/21 04/08/21 05/20/21 11:40 11:40 08:30 Creatinine Estimated GFR N-Telopeptide X-linked 25-OH Vitamin D Total PTH Intact Calcium (PTH Intact) Ur 24 Hour Volume 2075 Ur Creatinine 24 Hour 0.48 L Ur Calcium 24 Hr 62 77 05/20/21 08/31/21 08/31/21 08:30 10:12 10:12 Creatinine 0.80 Estimated GFR > 60 N-Telopeptide X-linked 25-OH Vitamin D Total PTH Intact Pending Calcium (PTH Intact) Pending Ur 24 Hour Volume 2325 Ur Creatinine 24 Hour 0.6 L Ur Calcium 24 Hr 12/06/21 12/06/21 12/06/21 07:50 09:31 09:31 Creatinine 0.73 Estimated GFR > 60 N-Telopeptide X-linked 18 25-OH Vitamin D Total 50.5 PTH Intact 44 Calcium (PTH Intact) 9.2 Ur 24 Hour Volume Ur Creatinine 24 Hour Ur Calcium 24 Hr PFSH Medical History Anemia Glaucoma Vitamin D deficiency Dyslipidemia Osteoporosis Diabetic nephropathy associated with type 2 diabetes mellitus Diabetes type 2, uncontrolled Surgical History Hx of eye surgery Hx of cataract extraction H/O colonoscopy History of ear surgery Family History Father Heart disease Mother CHF (congestive heart failure) Social History Household Members: None Alcohol intake: never Patient Tobacco Use Status: Never used Tobacco service: No Current occupational status: retired Assessment & Plan Assessment & Plan (1) Osteoporosis: Code(s): M81.0 - Age-related osteoporosis without current pathological fracture Category: Medical Plan: 73 yo female with a history of Osteoporosis, which was quite severe.? She did have significant gains in her BMD with Forteo, and bones have remained stable.? Was treated with Prolia and transition to a dose of Reclast She has not had a recent fracture .? The plan is to check a bone turnover marker. If remains suppressed will hold off on pharmacologic therapy and continue calcium and vitamin-D. Will recheck DEXA bone density of hip and spine In terms for diabetes, I did not address this during this visit told her to check her point cares 2 to 3 times a day and I will have a follow-up with our nurse practitioner Cathy Chapin NP . Perhaps the Jardiance is lower her pressure too much. Based on her blood sugar readings, an alternative antihyperglycemic agent or insulin could be added in lieu of the Jardiance. This will be addressed during the diabetic follow-up visit with Cathy Chapin a couple of weeks. I did tell her to stay hydrated. Coding Level of Care Code Est Pt Level 3 (78184) Diagnoses Osteoporosis M81.0
[2023-10-24 13:21] VITALS: BP 84/50; PULSE 60; BMI 17.3
== END 2023-10-24 13:47 | disposition home or self-care (01) ==
PROVIDERS: PCP Nurse Practitioner Family; Visit Provider Internal Medicine Endocrinology, Diabetes & Metabolism
DX: M81.0 Age-related osteoporosis without current pathological fracture (principal)
CPT/HCPCS: 99213

== ENCOUNTER → 2023-10-24 13:12 | Outpatient (BNVA) | payer MEDICARE, SELFPAY | PROVIDERS: PCP Nurse Practitioner Family; Visit Provider Internal Medicine Endocrinology, Diabetes & Metabolism | DX: M81.0 Age-related osteoporosis without current pathological fracture (principal) | CPT/HCPCS: 99212 ==

== ENCOUNTER 2023-10-31 13:18 | Outpatient (AMB) | payer MEDICARE, SELFPAY ==
[2023-10-31 13:28] VITALS: BP 114/52; PULSE 86; BMI 17.2
--- NOTE | 2023-10-31 13:28 | MHC.OFFVIS ---
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 Workroom Supervisor Required: No Accompanied by: Other Relationship Allergies penicillin V Allergy (Unknown, Verified 10/24/23 13:30) Unknown Medication List - Last Reconciled 10/31/23 by Frankie Sidhu MD atorvastatin 40 mg PO DAILY blood sugar diagnostic (Accu-Chek Guide test strips) As directed twice a day blood-glucose meter As directed calcium citrate-vitamin D3 200 mg-6.25 mcg (250 unit) (Citracal-D3 Petites) 2 tabs PO TID 30 days dorzolamide-timolol 22.3-6.8 mg/mL 1 drp ophthalmic (eye) BID empagliflozin (Jardiance) 10 mg PO DAILY ferrous sulfate 325 mg PO DAILY lancing device with lancets (Accu-Chek FastClix Lancing Device kit) As directed sitagliptin phos-metformin 50-1,000 mg ER (Janumet XR) 2 tabs PO DAILY vit C,Y-Xz-jqdhi-lutein-zeaxan 250-90-40-1 mg 1 cap PO BID HPI Comments Details: Susy is here for consultation regarding low blood pressure. She has brought home blood pressure diary and most blood pressures either low normal or slightly decreased into the 90s. Rarely, into the 80s. She states that she gets dizzy off and on. Maybe once a week or so. She has also had a couple of falls. She has had a long history of diabetes and medications for the same including Jardiance and Janumet. No known cardiac issues. No other symptoms like angina. [facility] Medical History Anemia Glaucoma Vitamin D deficiency Dyslipidemia Osteoporosis Diabetic nephropathy associated with type 2 diabetes mellitus Diabetes type 2, uncontrolled Surgical History Hx of eye surgery Hx of cataract extraction H/O colonoscopy History of ear surgery Family History Father Heart disease Mother CHF (congestive heart failure) Social History Household Members: None Alcohol intake: never Patient Tobacco Use Status: Never used Tobacco service: No Current occupational status: retired Review of Systems Const Denies chills, Denies daytime sleepiness, Denies fatigue, Denies fever(s), Denies poor appetite, Denies snoring, Denies stops breathing during sleep, Denies weakness, Denies weight gain and Denies weight loss Eyes Denies loss of vision ENT Denies dizziness and Denies hearing loss Card Denies chest pain, Denies irregular heart rhythm, Denies claudication, Denies leg edema, Denies lightheadedness, Denies palpitations, Denies dyspnea on exertion and Denies orthopnea Resp Denies cough, Denies excessive phlegm production, Denies dyspnea on exertion, Denies snoring and Denies wheezing GI Denies abdominal pain, Denies hematochezia, Denies change in bowel habits, Denies nausea and Denies vomiting Denies urinary frequency and Denies dysuria Musc Denies arthralgias, Denies muscle weakness, Denies numbness and Denies other Skin/Breast Denies nail changes and Denies rash Neuro Denies Abnormal speech present, Denies dizziness, Denies loss of vision, Denies memory loss, Denies numbness and Denies weakness Psych Denies depression and Denies memory loss Endo Denies fatigue and Denies palpitations Tenzin/Lymph Denies easy bruising Aller/Immun Denies wheezing Physical Exam Vital Signs: Last Vital Signs Pulse 86 10/31/23 13:28 BP 114/52 L 10/31/23 13:28 BMI result Body Mass Index 17.2 Const General: comfortable and no acute distress Orientation/consciousness: patient oriented x3 HEENT Other: Unremarkable Head: Yes normal to inspection Neck Neck: Yes normal visual inspection Chest Chest palpation & inspection: normal inspection of the chest Resp Auscultation: clear to auscultation bilaterally Cardio Palpation: normal PMI Heart sounds: S1 normal heart sound present, S2 normal heart sound present, no gallops, Murmur heart sound present systolic II/ and at the right sternal border and no rubs GI Palpation (GI): Soft to palpation Back/Spine/Pelvis Other: unremarkable Skin General skin exam: no rashes or lesions noted Neuro General: patient oriented x3 Speech: No Abnormal speech present Extrem General: Yes normal to inspection Psych Mental Status: mental status grossly normal Assessment & Plan Assessment & Plan (1) Hypotension: Code(s): I95.9 - Hypotension, unspecified Category: Medical Plan EKG with underlying sinus rhythm at 91/Min; no significant ST-T changes and otherwise unremarkable. Normal OK and corrected QT. In the echocardiogram, LVEF 60-65%. Normal diastolic function. Mild aortic stenosis. Overall, low blood pressure could be related to her low body weight and additionally, it seems that she has lost more than 10 lb in the last year and a half or so. Also, medications like Jardiance could lead to dehydration and hypotension/syncope. Hence advised that she stop the Jardiance and contact endocrine physician regarding further changes. Also she can liberalize salt intake. Ideally, some weight gain as well back to her baseline. Would hold off medications like midodrine at this time. If changes in diabetic medications and the above measures do not resolve the issue, then can readdress need for medications. Mild aortic stenosis not an issue at this time and not contributing to any symptoms. In the long run, that can progress and can get an echocardiogram in about 3 years or so through PCP. Discussed with family who came for appointment. They will keep us posted for further care. Coding Level of Care Code New Pt Level 3 (45435) Diagnoses Hypotension I95.9
== END 2023-10-31 14:01 | disposition home or self-care (01) ==
PROVIDERS: PCP Nurse Practitioner Family; Visit Provider Internal Medicine
DX: I95.9 Hypotension, unspecified (principal)
CPT/HCPCS: 99203

== ENCOUNTER → 2023-10-31 13:18 | Outpatient (BNVA) | payer MEDICARE, SELFPAY | PROVIDERS: PCP Nurse Practitioner Family; Visit Provider Internal Medicine | DX: I95.9 Hypotension, unspecified (principal) | CPT/HCPCS: 99202 ==

== ENCOUNTER 2023-11-09 13:16 | Outpatient (REF) | payer MEDICARE, SELFPAY ==
--- NOTE | ~2023-11-09 | XR_ITS ---
EXAMINATION: XR SACRUM AND COCCYX CLINICAL INFORMATION: Status post fall rule out fracture. COMPARISON: None available. TECHNIQUE: 3 views of the sacrococcygeal spine were obtained. FINDINGS: Scoliosis. Mild degenerative changes in the sacroiliac joints and hips. No visible sacral or coccygeal fracture. Grouping of at least 8 calculi in the right upper quadrant at the level of L3-L4 likely gallstones, less likely renal stones. XR/XR sacrum coccyx min 2V IMPRESSION: No visible fracture. Electronically signed by: Jose Ryder MD 11/12/2023 10:48 AM EDT
== END 2023-11-09 13:17 | disposition home or self-care (01) ==
LOC: HO.XRAY 13:16
PROVIDERS: PCP Nurse Practitioner Family; Visit Provider Nurse Practitioner Adult Health
DX: E11.21 Type 2 diabetes mellitus with diabetic nephropathy (principal); M81.0 Age-related osteoporosis without current pathological fracture; E11.65 Type 2 diabetes mellitus with hyperglycemia
CPT/HCPCS: 72220; 82947; 83036; 99212

== ENCOUNTER 2023-11-09 13:16 | Outpatient (AMB) | payer MEDICARE, SELFPAY ==
--- NOTE | 2023-11-09 13:29 | A.OFFVIS_ITS ---
Vital Signs 11/09/23 13:30 Height 4 ft 11 in Weight 88 lb 2.958 oz BMI 17.8 BP 100/60 Blood Pressure Location Rt brachial Position Sitting Pulse 84 Pulse Source Pulse Oximeter Intake Visit Reasons: DM/UNABLE TO LVM Intake Note: Patient presents today to re-establish treatment for Type 2 Diabetes Mellitus: Last Diabetic eye exam was on: Stated had an appt a couple months Last Podiatry exam was on: Does not see a Sex Offender Treatment Professional Most recent HbA1c: 7.8%, 11/09/2023 Random Glucose- 156 mg/dL, Today Database Report Writer Required: No Accompanied by: Self / Same As Patient Allergies penicillin V Allergy (Unknown, Verified 11/09/23 13:30) Unknown HPI Comments Details: [73] YO [M/F] who is seen for T2DM at the request of her field cane scaler Dr. Lynch. She was having low BP on jardiance and felt weak. Her supervisor cook house stopped it one week ago. She is followed by Dr. Lynch for osteoporosis. She fell last week and hit her coccyx and head. She did not lose consiousness, denies dizzyness, mental status changes or headache. She has some coyyxgeal tenderness, Initially diagnosed with T2DM in [1983]. Was initially started on treatment with [glipizide which was titrated to a lower dose metformin]. Current regimen [Janumet XR 50-1,000 twice daily]. Checks sugars [infrequent] times per day. One reading ondevice 122 Reports low sugars [few in the past on jardiance]. Treats lows with [juice 1/4 glass]. [Checks] sugar after to ensure it is rising. [Treats] according to rule of 15's. Most recent A1C [7.8% in the office today], Family history of T2DM in [brother]. Has eyes checked yearly, last eye exam [10/09], [mild] retinopathy. Has macular degeneration [Denies ] neuropathy, last foot exam [today], sees podiatry on occasion (Dr. Cali) able to do self care, wears shoes, slippers [Denies] nephropathy, not on [SHELLEY/ARB]. Microalbumin 12 on 02/08 [Has] HLD, on [statin]. Last LDL [37] as measured on [2021]. [Denies] CAD. Diet: [balanced meal plan] Weight: [has started to gain weight] [Had] diabetes education Once several years ago, seen twice [facility] Medical History Anemia Glaucoma Vitamin D deficiency Dyslipidemia Osteoporosis Diabetic nephropathy associated with type 2 diabetes mellitus Diabetes type 2, uncontrolled Surgical History Hx of eye surgery Hx of cataract extraction H/O colonoscopy History of ear surgery Family History Father Heart disease Mother CHF (congestive heart failure) Social History Household Members: None Alcohol intake: never Patient Tobacco Use Status: Never used Tobacco service: No Current occupational status: retired Physical Exam Vital Signs: Last Vital Signs Pulse 84 11/09/23 13:30 BP 100/60 11/09/23 13:30 BMI result Body Mass Index 17.8 Absence of Cushingoid features. Absence of acromegalic features. Neck exam reveals nl size thyroid about 15 gms. No thyroid nodules palpable. No carotid bruits present. Lungs CTA. Heart S1 S2, Reg R/R. No M/R/ G. Skin exam reveals absence of vitiligo or acanthosis nigricans. Abdominal exam reveals Soft NT/ND with NA BS. No organomegaly present. Const Other: Absence of Cushingoid features. Absence of acromegalic features. Neck exam reveals nl size thyroid about 15 gms. No thyroid nodules palpable. No carotid bruits present. Lungs CTA. Heart S1 S2, Reg R/R. No M/R G. Skin exam reveals absence of vitiligo or acanthosis nigricans. neuro exam grossly nonfocal awais Neck Other: . Extrem Other: Visual exam of foot performed. No ulcerations or open lesions. No onchomycosis, no callouses.Pulses 2 + distally Sensation intact to monofilament exam. Vibratory sensation sensed is intact with 128 Hz tuning fork Results AMB Hemoglobin A1c AMB Hemoglobin A1c 7.8 % Last Edit by MEME Allred on 11/09/23 14:00 Results Reviewed Results Reviewed: Laboratory Last Values Glucose (Clinic) 156 mg/dL (60-115) H 11/09/23 13:50 Hgb A1c (Clinic) 7.8 % (4.0-6.0) H 11/09/23 13:31 Laboratory Tests 01/31/23 10/01/23 10/01/23 13:48 11:49 14:46 Potassium 3.6 Creatinine 0.86 Estimated GFR > 60 Glucose (Clinic) Hgb A1c (Clinic) Calcium 9.1 D AST 29 ALT 15 Triglycerides 33 Cholesterol 109 LDL Cholesterol, Calc 51 HDL Cholesterol 52 Urine Creatinine 56.28 Urine Microalbumin 12.0 Microalb/Creat Ratio 21.3 11/09/23 11/09/23 13:31 13:50 Potassium Creatinine Estimated GFR Glucose (Clinic) 156 H Hgb A1c (Clinic) 7.8 H Calcium AST ALT Triglycerides Cholesterol LDL Cholesterol, Calc HDL Cholesterol Urine Creatinine Urine Microalbumin Microalb/Creat Ratio Assessment & Plan Assessment & Plan (1) Diabetes type 2, uncontrolled: Code(s): E11.65 - Type 2 diabetes mellitus with hyperglycemia Category: Medical Plan: 73-year-old type 2 diabetic currently on Janumet and doing well with this. She was recently taken off Jardiance due to dehydration we will symptoms and feels much better. She has been counseled to check her sugars daily alternating times between fasting, 2 hours postprandial breakfast lunch and dinner. She will schedule follow-up with Dr. Cali her plasterer rough for nail care. Status post fall 1 week ago after she ran into something. Neuro exam was nonfocal she denies headache mild tenderness on the coccyx for which an x-ray was ordered. I will see her back in the office in 2 months sooner p.r.n. if she is not hitting her target blood sugar numbers Orders: Orders AMB Hemoglobin A1c Today E11.21 - Type 2 diabetes mellitus with diabetic nephropathy XR sacrum coccyx min 2V Today M81.0 - Age-related osteoporosis without current pathological fracture Patient Instructions: The patient was counseled to always carry a source of sugar and on the rule of 15's: Take 3 glucose tablets and repeat again in 15 minutes if blood sugar is not in normal range. Continue to repeat every 15 minutes until blood sugar is normal. The patient was counseled to achieve a target A1C of 7% (154 avg). Fasting blood sugars should be 90-130 in the morning and less than 180 two hours after meals. Reviewed the relationship between poor diabetic control and the development of complications. She was asked to call the office if she is consistently above target Coding Level of Care Code Est Pt Level 4 (75710) Diagnoses Diabetes type 2, uncontrolled E11.65 Time Spent (min) 35 Comment Time spent reviewing labs/provider notes, face to face, chart doc
[2023-11-09 13:30] VITALS: BP 100/60; PULSE 84; BMI 17.8
[2023-11-09 13:57] LABS: Glucose, Whole Blood 156 mg/dL (60-115)
== END 2023-11-09 14:32 | disposition home or self-care (01) ==
PROVIDERS: PCP Nurse Practitioner Family; Visit Provider Nurse Practitioner Adult Health
DX: E11.21 Type 2 diabetes mellitus with diabetic nephropathy (principal); E11.65 Type 2 diabetes mellitus with hyperglycemia
CPT/HCPCS: 99214

== ENCOUNTER 2024-01-22 14:28 | Outpatient (AMB) | payer MEDICARE, SELFPAY ==
--- NOTE | 2024-01-22 12:05 | A.OFFVIS_ITS ---
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 At that time she had recently been taken off of Jardiance due to dehydration and low BP. Hgb A1CIS DUE END of , was 7.8% end of October She is followed by Dr. Lynch for osteoporosis. Initially diagnosed with T2DM in 1983. Was initially started on treatment with glipizide which was titrated to a lower dose and metformin.. Current regimen Janumet XR 50-1,000 twice daily Checks sugars [infrequent] times per day. average glucose 173 based on 4 readings over the past two weeks Reports low sugars only when she was on Jardiance. Treats lows with juice 1/4 glass. Checks sugar after to ensure it is rising. Treats according to rule of 15's. Family history of T2DM in [brother]. Has mild retinopathy. Has eyes checked yearly, last eye exam 09/2023. Has macular degeneration Denies neuropathy, last foot exam today, sees podiatry on occasion (Dr. Cali) able to do self care, wears shoes, slippers Positive nephropathy, not on [SHELLEY/ARB]. Microalbumin 12 on 02/08 eGFR 59 [Has] HLD, on [statin]. Last LDL [37] as measured on [2021]. [Denies] CAD. Diet: balanced meal plan [Had] diabetes education Once several years ago, seen twice [facility] Medical History Anemia Glaucoma Vitamin D deficiency Dyslipidemia Osteoporosis Diabetic nephropathy associated with type 2 diabetes mellitus Diabetes type 2, uncontrolled Surgical History Hx of eye surgery Hx of cataract extraction H/O colonoscopy History of ear surgery Family History Father Heart disease Mother CHF (congestive heart failure) Social History Household Members: None Alcohol intake: never Patient Tobacco Use Status: Never used Tobacco service: No Current occupational status: retired Physical Exam Vital Signs: Last Vital Signs Pulse 82 01/22/24 14:42 BP 112/78 01/22/24 14:42 BMI result Body Mass Index 19.0 Const Other: Absence of Cushingoid features. Absence of acromegalic features. Neck exam reveals nl size thyroid about 15 gms. No thyroid nodules palpable. Heart S1 S2, Reg R/R. No M/R G. Skin exam reveals absence of vitiligo or acanthosis nigricans. Visual exam of foot performed. No ulcerations or open lesions. No inter digit maceration or fissuring. No onychomycosis, no callouses. Sensation intact to monofilament exam. Vibratory sensation is normal with 128 Hz tuning fork. Assessment & Plan Assessment & Plan (1) Diabetes type 2, uncontrolled: Code(s): E11.65 - Type 2 diabetes mellitus with hyperglycemia Category: Medical Plan: 73 year old female with Type 2 diabetes on janumet bid. Had previously been on Jardiance however had uti and dehydration, She tests infrequently. Will check A1C end of January, if over 7.8% will add additional oral agent. She was asked to have fasting labs and urine test done Orders: Orders Microalbumin, Random (w Creat) Today E11.65 - Type 2 diabetes mellitus with hyperglycemia Creatinine Urine Today E11.65 - Type 2 diabetes mellitus with hyperglycemia Lipid Panel Today E11.65 - Type 2 diabetes mellitus with hyperglycemia Hemoglobin A1c 2 Weeks E11.21 - Type 2 diabetes mellitus with diabetic nephropathy Patient Instructions: Coding Level of Care Code Est Pt Level 3 (64389) Complex EM visit Add On G2211 Diagnoses Diabetes type 2, uncontrolled E11.65 Time Spent (min) 20 Comment face to face, lab review exam, documentation
[2024-01-22 14:42] VITALS: BP 112/78; PULSE 82; BMI 19.0
[2024-01-22 14:52] LABS: Glucose, Whole Blood 159 mg/dL (60-115)
== END 2024-01-22 15:04 | disposition home or self-care (01) ==
LOC: HO.ENCR 14:28
PROVIDERS: PCP Nurse Practitioner Family; Visit Provider Nurse Practitioner Adult Health
DX: E11.65 Type 2 diabetes mellitus with hyperglycemia (principal)
CPT/HCPCS: 99213; G2211

== ENCOUNTER → 2024-01-22 14:28 | Outpatient (BNVA) | payer MEDICARE, SELFPAY | PROVIDERS: PCP Nurse Practitioner Family; Visit Provider Nurse Practitioner Adult Health | DX: E11.65 Type 2 diabetes mellitus with hyperglycemia (principal); E11.21 Type 2 diabetes mellitus with diabetic nephropathy; M81.0 Age-related osteoporosis without current pathological fracture; E55.9 Vitamin D deficiency, unspecified; Z79.84 Long term (current) use of oral hypoglycemic drugs | CPT/HCPCS: 82947; 99212 ==

== ENCOUNTER 2024-02-06 08:39 | Outpatient (REF) | payer MEDICARE, SELFPAY ==
--- NOTE | ~2024-02-06 | MM_ITS ---
EXAMINATION: BONE DENSITOMETRY CLINICAL INDICATION: Age-related osteoporosis without current pathological fracture. COMPARISON: Previous BD dated 10/04/2021 and baseline BD dated 09/21/2006. TECHNIQUE: Using a Feedlooks DXA System (software version: 13.1) manufactured by [employer], dual-energy x-ray absorptiometry was performed of the lumbar spine and left hip. The images are of good technical quality. Summary results are attached. FINDINGS: LEFT FEMUR, NECK: Current: BMD 0.599 g/cm2, Z-score -0.7, T-score -3.2, osteoporosis. Prior: BMD 0.649 g/cm2. Baseline: BMD 0.540 g/cm2. LEFT FEMUR, TOTAL: Current: BMD 0.721 g/cm2, Z-score 0.0, T-score -2.3, osteopenia, 5.3% decrease from previous, 1.8% increase from baseline (<5% change is not significant). Prior: BMD 0.761 g/cm2. Baseline: BMD 0.708 g/cm2. AP SPINE L1-L4: Current: BMD 0.797 g/cm2, Z-score -0.7, T-score -3.2, osteoporosis, 9.4% decrease from previous, 0.4% increase from baseline (<5% change is not significant). Prior: BMD 0.880 g/cm2. Baseline: BMD 0.794 g/cm2. IDENTIFIED RISK FACTORS: Low body weight, osteoporosis, menopause. HISTORY OF FRACTURE: None listed. MEDICATIONS: Calcium supplements or multivitamin, vitamin D, Prolia . MM/XR DEXA axial skeleton IMPRESSION: 1. DIAGNOSIS: Osteoporosis based on the lowest T-score value of -3.2 in the femoral neck and lumbar spine applying World Health Organization criteria. 2. 10-YEAR FRACTURE RISK PREDICTION, FRAX: According to the guidelines, FRAX calculation should only be performed on patients in the osteopenia bone density category. Therefore, FRAX was not performed on this patient. 3. Treatment Recommendations: NOF guidelines recommend consideration for treatment in postmenopausal women and men age 50 and older presenting with the following: -A hip or vertebral (clinical or morphometric) fracture. -T-score less than or equal to -2.5 at the femoral neck or spine after appropriate evaluation to exclude secondary causes. -Low bone mass at the hip or spine and a 10-year fracture probability by FRAX of greater than or equal to 3% for hip fracture or greater than or equal to 20% for major osteoporotic fracture based on the [place] adapted WHO algorithm. 4. Other Recommendations: All treatment decisions require clinical judgment and consideration of individual patient factors, including patient preferences, comorbidities, previous drug use, risk factors not captured in the FRAX model (e.g. frailty, falls, vitamin D deficiency, increased bone turnover, interval significant decline in bone density) and possible under or overestimation of fracture risk by FRAX. Additional medical evaluation for secondary cause of low bone mineral density may be appropriate. FUTURE SCAN RECOMMENDATION: People with diagnosed cases of osteoporosis or at high risk for fracture should have regular bone mineral density tests. For patients eligible for Medicare, routine testing is allowed once every 2 years. The testing frequency can be increased to one year for patients who have rapidly progressing disease, those who are receiving or discontinuing medical therapy to restore bone mass, or have additional risk factors. Electronically signed by: Moriah Campuzano MD 02/06/2024 08:28 PM JONATHAN VALERIO
== END 2024-02-06 08:40 | disposition home or self-care (01) ==
LOC: HO.MAMMO 08:39
PROVIDERS: Absent Provider Nurse Practitioner Adult Health; PCP Family Medicine; Visit Provider Internal Medicine Endocrinology, Diabetes & Metabolism
DX: M81.0 Age-related osteoporosis without current pathological fracture (principal); Z79.899 Other long term (current) drug therapy
CPT/HCPCS: 77080

== ENCOUNTER 2024-03-01 09:49 | Outpatient (REF) | payer MEDICARE, SELFPAY ==
[2024-03-01 11:38] LABS: Estimated Average Glucose 200 mg/dL; Hemoglobin A1C 190.1648 umol/L; Hemoglobin A1c % 8.6 % (<6.0); Total Hemoglobin (HGBA1C) 2687.1773 umol/L
[2024-03-01 11:48] LABS: Cholesterol 126 mg/dL (<200); HDL Cholesterol 50 mg/dL (>40); LDL Cholesterol Calculated 61 mg/dL (<100); Triglycerides 78 mg/dL (<150)
[2024-03-01 12:26] LABS: Creatinine Urine 108.73 mg/dL; Microalbum/Creatinine Ratio Ur 12.8 ug/mg cr (<30)
[2024-03-07 16:43] LABS: N-Telopeptide 37 (see note); NTXCreaRU 100 mg/dL (20-275)
== END 2024-03-01 09:50 | disposition home or self-care (01) ==
LOC: HO.HMGCLDS 09:49
PROVIDERS: PCP Family Medicine; Referring Provider Nurse Practitioner Adult Health; Visit Provider Internal Medicine Endocrinology, Diabetes & Metabolism
DX: M81.0 Age-related osteoporosis without current pathological fracture (principal); E11.65 Type 2 diabetes mellitus with hyperglycemia; E11.21 Type 2 diabetes mellitus with diabetic nephropathy
CPT/HCPCS: 36415; 80061; 82043; 82523; 82570; 83036

== ENCOUNTER 2024-03-03 12:49 | Outpatient (AMB) | payer MEDICARE, SELFPAY ==
--- NOTE | 2024-03-03 13:03 | MHC.OFFVIS ---
Vital Signs 03/03/24 13:07 Height 4 ft 10.66 in Weight 92 lb 13.034 oz BMI 19.0 BP 98/50 L Blood Pressure Location Lt brachial Position Sitting Pulse 79 Pulse Source Pulse Oximeter Intake Visit Reasons: Osteoporosis Intake Note: Patient present today for Osteoporosis follow up. Policy Issue Clerk Required: No Accompanied by: Self / Same As Patient Allergies penicillin V Allergy (Unknown, Verified 03/03/24 13:08) Unknown empagliflozin [From Jardiance] Adverse Reaction (Intermediate, Verified 03/03/24 13:08) uti Medication List - Last Reconciled 03/03/24 by Henry Lynch MD atorvastatin 40 mg PO DAILY blood sugar diagnostic (Accu-Chek Guide test strips) As directed twice a day blood-glucose meter As directed calcium citrate-vitamin D3 200 mg-6.25 mcg (250 unit) (Citracal-D3 Petites) 2 tabs PO TID 30 days dorzolamide-timolol 22.3-6.8 mg/mL 1 drp ophthalmic (eye) BID ferrous sulfate 325 mg PO DAILY lancing device with lancets (Accu-Chek FastClix Lancing Device kit) As directed sitagliptin phos-metformin 50-1,000 mg ER (Janumet XR) 2 tabs PO DAILY vit C,V-Pv-kotfc-lutein-zeaxan 250-90-40-1 mg 1 cap PO BID HPI Comments Details: 73 YO Female with PMHx Osteoporosis who is seen in F/U for the same. She was previously followed by Dr. Davies and prior to that Dr. Rowe. . First diagnosed with Osteoporosis in 2005 with her first DEXA revealing severe Osteoporosis of the spine and the hip. She underwent evaluation for secondary causes of Osteoporosis which were WNL, but it does not appear a 24 hour urine has ever been completed.. Subsequently was found to be normal She initially was started on treatment with oral bisphosphonates, and even received 1 dose of IV Reclast. She was then started on Forteo by Dr. Rowe in 2013, and completed a 2 year course of this. She was switched to Prolia as of 07/2015 and has continued on this ever since. Her last dose 07/17/2022 No history of pathologic fracture or ONJ. Has 4 servings of dietary calcium per day in the form of milk and yogurt. Does not take a Calcium supplement. Does not take a separate Vitamin D supplement. Denies ever using PPI, anticoagulant, antiepileptic or glucocorticoid medication. Does weight bearing exercise 2 days per week in the form of resistance training. Fracture history: Denies Height loss: Denies RACE RELATIONS ADVISER history: Menarche was age 11. Menses were always regular. . Menopause was age 52. She did not use HRT. Denies history of Kidney stones. Denies family history of Osteoporosis or hip fracture. UTD on dental cleanings and sees dentist every 6 months. No planned upcoming dental work or extractions. DXA dated: 10/04/2021 FINDINGS: AP SPINE L1-L4: Current: BMD 0.880 g/cm2, Z-score -0.1, T-score -2.5, osteoporosis, 2.1% increase from previous, 10.8% increase from baseline (<5% change is not significant). Prior: BMD 0.862 g/cm2. Baseline: BMD 0.794 g/cm2. LEFT FEMUR, NECK: Current: BMD 0.649 g/cm2, Z-score -0.5, T-score -2.8, osteoporosis. Prior: BMD 0.610 g/cm2. Baseline: BMD 0.540 g/cm2. LEFT FEMUR, TOTAL: Current: BMD 0.761 g/cm2, Z-score 0.1, T-score -2.0, osteopenia, 3.1% increase from previous, 7.5% increase from baseline (<5% change is not significant). Prior: BMD 0.738 g/cm2. Baseline: BMD 0.708 g/cm2. Labs: Laboratory Tests 04/08/21 04/08/21 05/20/21 11:40 11:40 08:30 Creatinine Estimated GFR N-Telopeptide X-linked 25-OH Vitamin D Total PTH Intact Calcium (PTH Intact) Ur 24 Hour Volume 2075 Ur Creatinine 24 Hour 0.48 L Ur Calcium 24 Hr 62 77 05/20/21 08/31/21 08/31/21 08:30 10:12 10:12 Creatinine 0.80 Estimated GFR > 60 N-Telopeptide X-linked 25-OH Vitamin D Total PTH Intact Pending Calcium (PTH Intact) Pending Ur 24 Hour Volume 2325 Ur Creatinine 24 Hour 0.6 L Ur Calcium 24 Hr 0912/06/21 12/06/21 07:50 09:31 09:31 Creatinine 0.73 Estimated GFR > 60 N-Telopeptide X-linked 18 25-OH Vitamin D Total 50.5 PTH Intact 44 Calcium (PTH Intact) 9.2 Ur 24 Hour Volume Ur Creatinine 24 Hour Ur Calcium 24 Hr Recent DEXA shows significant declines in spine and hip. Patient is currently on calcium and vitamin-D supplementation PFSH Medical History Anemia Glaucoma Vitamin D deficiency Dyslipidemia Osteoporosis Diabetic nephropathy associated with type 2 diabetes mellitus Diabetes type 2, uncontrolled Surgical History Hx of eye surgery Hx of cataract extraction H/O colonoscopy History of ear surgery Family History Father Heart disease Mother CHF (congestive heart failure) Social History Household Members: None Alcohol intake: never Patient Tobacco Use Status: Never used Tobacco service: No Current occupational status: retired Physical Exam Vital Signs: BMI result Body Mass Index 19.0 Assessment & Plan Assessment & Plan (1) Osteoporosis: Code(s): M81.0 - Age-related osteoporosis without current pathological fracture Category: Medical Plan: 73 yo female with a history of Osteoporosis, which was quite severe.? She did have significant gains in her BMD with Forteo, and bones have remained stable.? Was treated with Prolia and transition to a dose of Reclast She has not had a recent fracture. Urine NTX is pending recent bone density showed significant declines in the hip and spine .? The plan is to talk to the patient about undergoing another course of anabolic therapy perhaps with the Evenity. Patient has taken a full 2 year course of Forteo proceeded by Prolia and Reclast in the past and subsequently had declines in her bone density. Therefore, the only anabolic that would be indicated at the present time is Evenity which then can be proceeded by another anti resorptive in 1 year Medications: New romosozumab-aqqg (Evenity) to be injected in office 210 mg (2.34 mL) subcut .qmonthly 2.34 mL 11RF Coding Level of Care Code Est Pt Level 3 (58563) Diagnoses Osteoporosis M81.0
[2024-03-03 13:07] VITALS: BP 98/50; PULSE 79; BMI 19.0
== END 2024-03-03 13:46 | disposition home or self-care (01) ==
PROVIDERS: PCP Family Medicine; Visit Provider Internal Medicine Endocrinology, Diabetes & Metabolism
DX: M81.0 Age-related osteoporosis without current pathological fracture (principal)
CPT/HCPCS: 99213

== ENCOUNTER → 2024-03-03 12:49 | Outpatient (BNVA) | payer MEDICARE, SELFPAY | PROVIDERS: PCP Family Medicine; Visit Provider Internal Medicine Endocrinology, Diabetes & Metabolism | DX: M81.0 Age-related osteoporosis without current pathological fracture (principal) | CPT/HCPCS: 99212 ==

== ENCOUNTER 2024-03-24 13:44 | Outpatient (AMB) | payer MEDICARE, SELFPAY ==
--- NOTE | 2024-03-24 14:37 | AM.OFFVISNUR ---
Intake Visit Reasons: Evenity #1 Allergies penicillin V Allergy (Unknown, Verified 03/03/24 13:08) Unknown empagliflozin [From Jardiance] Adverse Reaction (Intermediate, Verified 03/03/24 13:08) uti Office Meds romosozumab-aqqg 210 mg/2.34 mL(105 mg/1.17 mL x2)subcutaneous syringe Performing Provider: Henry Lynch MD Performing Location: [facility] [place] Endocrinology Administered by: Suzan Herrera RN on 03/24/24 14:37 Dose Route Admin Location Dispensed Lot Number Expiration Date [facility] Hospitality Services Manager 210 mg subcut bilateral upper arms 2.34 mL [id number] 06/16/26 84485-216-19 AMGEN Comments: Consent form signed by patient. Pt tolerated injection well. Pt aware to call the office with any site reactions such a redness, warmth or swelling. Pt aware if redness were to occur to lyn the area with a pen and take a picture of area if possible. Pt aware to call with any other side effects as well. Pt observed x15 minutes following injection without incident. Assessment & Plan Assessment & Plan Orders: Orders AMB Romosozumab Injection Patient Supplied Today M81.0 - Age-related osteoporosis without current pathological fracture Medications: New romosozumab-aqqg 210 mg (2.34 mL) subcut ONCE 2.34 mL 0RF M81.0 - Age-related osteoporosis without current pathological fracture
== END 2024-03-24 14:21 | disposition home or self-care (01) ==
PROVIDERS: PCP Family Medicine
DX: M81.0 Age-related osteoporosis without current pathological fracture (principal)

== ENCOUNTER → 2024-03-24 13:44 | Outpatient (BNVA) | payer MEDICARE, SELFPAY | PROVIDERS: PCP Family Medicine | DX: M81.0 Age-related osteoporosis without current pathological fracture (principal) | CPT/HCPCS: 96372; J3111 ==

== ENCOUNTER 2024-04-21 13:52 | Outpatient (AMB) | payer MEDICARE, SELFPAY ==
--- NOTE | 2024-04-21 14:24 | AM.OFFVISNUR ---
Intake Visit Reasons: evenity #2 Allergies penicillin V Allergy (Unknown, Verified 04/03/24 10:24) Unknown empagliflozin [From Jardiance] Adverse Reaction (Intermediate, Verified 04/03/24 10:24) uti Office Meds romosozumab-aqqg 210 mg/2.34 mL(105 mg/1.17 mL x2)subcutaneous syringe Performing Provider: Henry Lynch MD Performing Location[place] [facility] [place] Administered by: Suzan Herrera RN on 04/21/24 14:00 Dose Route Admin Location Dispensed Lot Number Expiration Date [facility] Instructor Product Inspection 210 mg subcut bilateral upper arms 2.34 mL [id number] 06/16/26 08925-699-88 AMGEN Comments: Consent form signed by patient. Pt tolerated injection well. Pt denies any adverse reactions with first injection. Assessment & Plan Assessment & Plan Orders: Orders AMB Romosozumab Injection Patient Supplied Today M81.0 - Age-related osteoporosis without current pathological fracture Medications: New romosozumab-aqqg 210 mg (2.34 mL) subcut ONCE 2.34 mL 0RF M81.0 - Age-related osteoporosis without current pathological fracture Coding
== END 2024-04-21 14:24 | disposition home or self-care (01) ==
PROVIDERS: PCP Family Medicine
DX: M81.0 Age-related osteoporosis without current pathological fracture (principal)

== ENCOUNTER → 2024-04-21 13:52 | Outpatient (BNVA) | payer MEDICARE, SELFPAY | PROVIDERS: PCP Family Medicine | DX: M81.0 Age-related osteoporosis without current pathological fracture (principal) | CPT/HCPCS: 96372; J3111 ==

== ENCOUNTER 2024-05-19 13:44 | Outpatient (AMB) | payer MEDICARE, SELFPAY ==
--- NOTE | 2024-05-19 14:05 | AM.OFFVISNUR ---
Intake Visit Reasons: Evenity #3 Allergies penicillin V Allergy (Unknown, Verified 04/03/24 10:24) Unknown empagliflozin [From Jardiance] Adverse Reaction (Intermediate, Verified 04/03/24 10:24) uti Office Meds romosozumab-aqqg 210 mg/2.34 mL(105 mg/1.17 mL x2)subcutaneous syringe Performing Provider: Henry Lynch MD Performing Location: [facility] [place] Endocrinology Administered by: Suzan Herrera RN on 05/19/24 14:05 Dose Route Admin Location Dispensed Lot Number Expiration Date [facility] Lead Quality Control Technician 210 mg subcut bilateral upper arms 2.34 mL [id number] 06/16/26 93612-443-73 AMGEN Comments: Consent form signed by patient. pt tolerated injection well. Pt denies any adverse reactions from previous injections besides mild fatigue following injections. Assessment & Plan Assessment & Plan Orders: Orders AMB Romosozumab Injection Patient Supplied Today M81.0 - Age-related osteoporosis without current pathological fracture Medications: New romosozumab-aqqg 210 mg (2.34 mL) subcut ONCE 2.34 mL 0RF M81.0 - Age-related osteoporosis without current pathological fracture Coding
--- OUTSIDE RECORDS SUMMARY | 2024-05-19 16:14 | XMS_ITS | Patient Health Record ---
Author Organization [facility] Sravanthi ariella Madison Address [address] [place] [address] Care Team Providers Care Web Marketing Coordinator Name Role Phone Jakub Gillespie MD Primary Care Provider UnavailEver Collins Unavailable [phone] Allergies Allergen (clinical drug ingredient) Drug/Non Drug Allergy documented on EMR Reaction Allergy Type Onset Date Status amoxicillin Amoxicillin hives Drug Allergy Act myles acetaminophen Midol Unknown Drug Allergy Act myles Penicillin hives Drug Allergy Active Reason For Referral No Information Medications Medication SIG (Take, Route, Frequency, Duration) Notes Start Date End Date Status glipiZIDE 10 MG 1 tablet Orally Once a day for 30 day(s) Not-Taking Invokana Not-Taking Aspirin 81 MG 1 tablet Orally Once a day for 30 day(s) Active Atorvastatin Calcium 10 MG 1 tablet Orally Once a day for 30 day(s) Active Travatan Z Active Azopt Active Extra Depth Orthopedic Shoes (1 Pair) with Customized Heat Molded Multidensity Innersoles (3 Pair) as directed Dx: NIDDM (E11.9), Hammertoe Foot Deformity (M20.41,M20.42), Preulcerative Skin Lesion(s) (L85.1) Active Multi Vitamin/Minerals as directed Orally Active Citracal Plus as directed Orally Active Magnesium 300 MG 1 capsule with a latisha l Orally Once a day for 30 day(s) Active Janumet XR Active Immunizations Vaccine Route Administration Date Status Comme nts Influenza Unknown 01/22/2017 Administered Influenza Unknown 01/21/2018 Administered Influenza Unknown 12/11/2018 Administered Social History Tobacco Use: Social History Observation Description Date Details (start date - stop date) Never Smoker NA - NA Tobacco Use/Smoking Question Answer Notes Are you a: nonsmoker Additional Findings: Tobacco Non-User Current no n-smoker Alcohol Screen Question Answer Notes Did you have a drink contain ing alcohol in the past year? Yes How many drinks did you have on a typical day when you were drinking in the past year? 1 or 2 drinks (0 point) Points 0 Interpretation Negative Tobacco use other than smoking: Question Answer Notes Are you an other tobacco user? No Problems Problem Type SNOMED Code ICD Code Onset Dates Problem Status W/U Status Risk Notes Problem Tinea unguium (965909054) Tinea unguium (B35.1) Active confirmed Problem Type II diabetes mellitus without complication (111791743) Type 2 diabetes mellitus without complications (E11.9) Active confirmed Encounters Encounter Location Date Provider Diagnosis [facility] [address] [address] 04/14/2024 Ever Mata Plan Of Treatment Pending Test Test Name Order Date [id number] NAIL, 6 OR MORE 08/09/2012 [id number] NAIL, 6 OR MORE 12/31/2012 [id number] NAIL, 6 OR MORE 10/17/2016 [id number] NAIL, 6 OR MORE 11/27/2017 [id number] NAIL, 6 OR MORE 02/26/2018 [id number] NAIL, 6 OR MORE 05/28/2018 [id number] NAIL, 6 OR MORE 08/30/2018 [id number] NAIL, 6 OR MORE 12/06/2018 [id number] NAIL, 6 OR MORE 08/28/2017 [id number] NAIL, 6 OR MORE 04/08/2019 75326-Qnruyxtw Plate 10/17/2016 [id number] Plate 11/27/2017 89499-Fpacbimy Plate 12/06/2018 00536-Dyhmygmh Plate 08/28/2017 30701-Yokqhyqg Plate 08/09/2012 89635-Tlnhzmdx Plate 12/31/2012 16658-Qkesapth Plate Each Additional 02203- Debride <25 sq cm 12/31/2012 Next Appt Details Provider Name:Ever Mata , 06/24/2024 01:00:00 PM, [address] [place] [address], [phone], Insurance Providers Payer Name Payer Address Payer Phone Subscriber Number Group Number Insured Name Patient Relationship to Insured Coverage Start Date Coverage End Date Medicare National Govt Sv[employer] [address] [place] [address] [phone] [id number] Susy Lacy Self - patient is the insured [employer] [address] [place] [address] [phone] [id number] Peloquin Susy Self - patient is the insured Medical (General) History Medical History History ICD Code Arthritis cataracts diabetic osteoporosis cholesterol Glaucoma Measles Mumps Chicken pox Surgical History Surgery Date(Month/Year) ear surgery cataract surgery 10/2012 Hospitalization History Reason Date(Month/Year) Patient had iv yesterday for osteoporosi s. 07/09/2012
--- OUTSIDE RECORDS SUMMARY | 2024-05-19 16:14 | XMS_ITS | Patient Health Record ---
Author Organization [facility] Address [address] [place] [phone] Care Team Providers Care Switchboard Receptionist Name Role Phone Hdez PARISH Mary Jesus Primary Care Provider Un available Ruben Valdes Jr Unavailable ALLERGIES Allergen (clinical drug ingredient) Drug/Non Drug Allergy documented on EMR Reaction Allergy Type Onset Date Status acetaminophen Midol Unknown Drug Allergy Act myles Penicillin Unknown Drug Allergy Active REASON FOR REFERRAL No Information MEDICATIONS Medication SIG (Take, Route, Frequency, Duration) Notes Start Date End Date Status Aspir-81 81 MG 1 tablet Orally Once a day Active Atorvastatin Calcium 40 MG 1 tablet Oral ly Once a day Active MiraLax (colon prep) 17 GM/SCOOP mixed with Gatorade or Crystal Light Orally begin at 5:00 p.m. the day before the procedure for 1 day 11/30/2021 Active Janumet 50-500 MG 1 tablet with meals Orally Twice a day for 30 day(s) Active Multi Vitamin/Minerals 1 1 Orally QD Active Welchol 625 MG 3 tablets with meals Orally Twice a day for 30 day(s) Active IMMUNIZATIONS Vaccine Route Administration Date Status Comme nts Flu vaccine no Preserv 3 and > Unknown 12/30/2013 Admin istered Influenza Unknown 02/08/2021 Administered SOCIAL HISTORY Sex Assigned At : Social History Observation Description Sex Assigned At Unknown PROBLEMS Problem Type ICD Code Onset Dates Problem Status W/U Status Risk SNOMED Code Notes Problem Colon cancer screening (Z12.11) Active confirmed 558338135 Problem Long-term use of aspirin therapy (Z79.82) Active confirmed 703841456 Problem FH: colon cancer (Z80.0) Active confirmed 150749735 PLAN OF TREATMENT Future Test Test Name Order Date COLONOSCOPY 07/16/2014 COLONOSCOPY 11/30/2021 Insurance Providers Payer Name Payer Address Payer Phone Subscriber Number Group Number Insured Name Patient Relationship to Insured Coverage Start Date Coverage End Date MEDICARE OF [place] [address] [place] [id number] ARACELI KC Self - patient is the insured [employer] ATTN CLAIMS [address] [place] [address] [id number] ARACELI KC Self - patient is the insured MEDICAL (GENERAL) HISTORY Medical History History ICD Code Colonoscopy 02/05/15, normal, five-year followup for family history Glaucoma diabetes mellitus elevated cholesterol Osteoporosis Anemia Ptosis Surgical History Surgery Date(Month/Year) ear surgery detached retina cataract-lens implants
--- OUTSIDE RECORDS SUMMARY | 2024-05-19 16:14 | XMS_ITS ---
Author Organization [facility] Address [address] [place] [address] Care Team Providers Care Social Work Therapist Name Role Phone oJse Miguel SHAIKH, Jakub Primary Care Provider Unavailab Ever Andrade Unavailable [phone] REASON FOR VISIT ON Encounters Encounter Location Date Provider Diagnosis [address] [address] 04/14/2024 Ever Mata Plan Of Treatment Next Appt Details Provider Name:Ever Mata , 06/24/2024 01:00:00 PM, [address] [place] [address], [phone], Progress Notes * Susy KC ADOB: (73 yo F)Acc No.[id number]:04/14/2024 Patient:?Susy KC :1950???Age:73 Y???Sex:Female Address:[address] [facility], [address] , [place] [address] * true * Date:? Generated for Lucinda brothers/Kady/Anthonysmitting on:?05/19/2024 04:14 PM EST
== END 2024-05-19 14:05 | disposition home or self-care (01) ==
PROVIDERS: PCP Family Medicine
DX: M81.0 Age-related osteoporosis without current pathological fracture (principal)

== ENCOUNTER → 2024-05-19 13:44 | Outpatient (BNVA) | payer MEDICARE, SELFPAY | PROVIDERS: PCP Family Medicine | DX: M81.0 Age-related osteoporosis without current pathological fracture (principal) | CPT/HCPCS: 96372; J3111 ==

== ENCOUNTER 2024-05-22 14:12 | Outpatient (AMB) | payer MEDICARE, SELFPAY ==
--- NOTE | 2024-05-22 10:39 | A.OFFVIS_ITS ---
Vital Signs 05/22/24 14:28 Height 4 ft 11 in Weight 94 lb 12.78 oz BMI 19.1 BP 110/47 L Blood Pressure Location Rt brachial Position Sitting Pulse 97 Pulse Source Pulse Oximeter Pulse Oximetry (%) 98 Oxygen Delivery Method Room Air Intake Visit Reasons: DM Intake Note: Patient presents today for a follow-up on Type 2 Diabetes Mellitus: Last Diabetic eye exam was on: 03/20/2024 Last Podiatry exam was on: Does not see a Patient Advocate Most recent HbA1c: 8.1%, 05/22/2024 Random Glucose- 169 mg/dL, Today Maintenance Craftsman Required: No Accompanied by: Self / Same As Patient Allergies penicillin V Allergy (Unknown, Verified 05/22/24 14:38) Unknown empagliflozin [From Jardiance] Adverse Reaction (Intermediate, Verified 05/22/24 14:38) uti HPI Comments Details: 73 YO female who is seen for T2DM. Last seen 01/2024. Hgb A1C: 05/22/24 8.1 %, 10/2023 7.8%. She is seen by Dr. Lynch for osteoporosis and was last seen for this 02/2024. She is followed by Dr. Lynch for osteoporosis. Initially diagnosed with T2DM in 1983. Was initially started on treatment with glipizide which was titrated to a lower dose and metformin. Jardiance was stopped in 2023 secondary to dehydration and low glucose Current regimen Janumet XR 50-1,000 twice daily Checks sugars 1-2 times per day varying test time. Average is 149 with a low of 128 and a high of 184. Treats lows with juice 1/4 glass. Checks sugar after to ensure it is rising. Treats according to rule of 15's. Family history of T2DM in brother. Has mild retinopathy. Has eyes checked yearly, last eye exam 09/2023. Has macular degeneration Denies neuropathy, last foot exam today, sees podiatry on occasion (Dr. Cali) able to do self care, wears shoes, slippers Positive nephropathy, not on [SHELLEY/ARB]. Microalbumin 12 on 02/08 eGFR 59 04/03/24 greater than 6 Has HLD, on statin. Last LDL 61 as measured on 03/01/2024. Denies CAD, PVD, CVA Denies chest pain, dyspnea or symptoms of claudication She recently sold her family home of 75 years and lost her cat. She is in elderly housing apt and is happy with this and we will be doing a container garden. She has 2 brothers and some niece's in the area. She is going to give up driving due to eye site Diet: balanced meal plan [Had] diabetes education Once several years ago, seen twice COUNT INCLUDES THE [facility] Medical History Anemia Glaucoma Vitamin D deficiency Dyslipidemia Osteoporosis Diabetic nephropathy associated with type 2 diabetes mellitus Diabetes type 2, uncontrolled Surgical History Hx of eye surgery Hx of cataract extraction H/O colonoscopy History of ear surgery Family History Father Heart disease Mother CHF (congestive heart failure) Social History Household Members: None Alcohol intake: never Patient Tobacco Use Status: Never used Tobacco service: No Current occupational status: retired Physical Exam Vital Signs: Last Vital Signs Pulse 97 05/22/24 14:28 BP 110/47 L 05/22/24 14:28 Pulse Ox 98 05/22/24 14:28 Oxygen Delivery Method Room Air 05/22/24 14:28 BMI result Body Mass Index 19.1 Const Other: Absence of Cushingoid features. Absence of acromegalic features. Neck exam reveals nl size thyroid about 15 gms. No thyroid nodules palpable. No carotid bruits present. Lungs CTA. Heart S1 S2, Reg R/R. No M/R G. Skin exam reveals absence of vitiligo or acanthosis nigricans. No edema Visual exam of foot performed. No ulcerations or open lesions. No inter digit maceration or fissuring. No onychomycosis, no callouses. Sensation intact to monofilament exam. Vibratory sensation is normal with 128 Hz tuning fork. Results AMB Hemoglobin A1c AMB Hemoglobin A1c 8.1 % Last Edit by MEME Allred on 05/22/24 14:48 Results Reviewed Results Reviewed: Laboratory Last Values Glucose (Clinic) 169 mg/dL (60-115) H 05/22/24 14:37 Assessment & Plan Assessment & Plan (1) Diabetes type 2, uncontrolled: Code(s): E11.65 - Type 2 diabetes mellitus with hyperglycemia Category: Medical Plan: 73-year-old type 2 diabetic with neuropathy and mild nephropathy with an A1c 05/22/24 8.1%. Given the patient's age this is a reasonable target. We did discuss the possibility of low-dose insulin at bedtime. For now we will continue the current treatment. She was advised that 5-10 minutes of movement in the evening can lower the a.m. sugars. The patient had an opportunity to ask questions regarding treatment plan. The patient expressed understanding and agreement with the above treatment plan. The patient is aware they should contact our office by phone for worsening glucose readings or for any low blood sugars which may warrant a change in diabetes medication. Compliance is encouraged with medications and any followup testing/consults which may have been ordered. Orders: Orders AMB Hemoglobin A1c Today E11.65 - Type 2 diabetes mellitus with hyperglycemia Patient Instructions: She was advised to carry a source of sugar at all time Check your feet daily looking for any signs of infection, drainage, redness, ulceration and seek medical attention if this occurs. Break in shoes gradually and do not wear open-toed shoes or walk stocking footed or barefooted. Sick day management reviewed metformin precautions were reviewed. The patient was counseled to achieve a target A1C of 8% (180 avg). Fasting blood sugars should be 130 in the morning and less than 200 two hours after meals. Reviewed the relationship between poor diabetic control and the development of complications. Coding Level of Care Code Est Pt Level 4 (51648) Complex EM visit Add On G2211 Diagnoses Diabetes type 2, uncontrolled E11.65 Time Spent (min) 35 Comment Time spent reviewing labs/provider notes, face to face, chart doc
[2024-05-22 14:28] VITALS: BP 110/47; PULSE 97; O2SAT 98; BMI 19.1
[2024-05-22 14:42] LABS: Glucose, Whole Blood 169 mg/dL (60-115)
--- OUTSIDE RECORDS SUMMARY | 2024-05-22 17:26 | XMS_ITS ---
Author Organization [facility] Address [address] [place] [address] Care Team Providers Care Bowling Alley Refinisher Name Role Phone Jose Miguel SHAIKH, Jakub Primary Care Provider Unavailab Ever Andrade Unavailable [phone] REASON FOR VISIT ON Encounters Encounter Location Date Provider Diagnosis [address] [address] 04/14/2024 Ever Mata Plan Of Treatment Next Appt Details Provider Name:Ever Mata , 06/24/2024 01:00:00 PM, [address] [place] [address], [phone], Progress Notes * Susy KC ADOB: (73 yo F)Acc No.[id number]:04/14/2024 Patient:?Susy KC :1950???Age:73 Y???Sex:Female Address:[address] [facility], [address] , [place] [address] * true * Date:? Generated for Lucinda brothers/Kady/Anthonysmitting on:?05/22/2024 05:25 PM EST
--- OUTSIDE RECORDS SUMMARY | 2024-05-22 17:26 | XMS_ITS | Patient Health Record ---
Author Organization [facility] Address [address] [place] [address] Care Team Providers Care Professor Of Astronomy Name Role Phone Lemuel LUGO Mary Jesus Primary Care Provider Un available Ruben Valdes Jr Unavailable [phone] Allergies Allergen (clinical drug ingredient) Drug/Non Drug Allergy documented on EMR Reaction Allergy Type Onset Date Status acetaminophen Midol Unknown Drug Allergy Act myles Penicillin Unknown Drug Allergy Active Reason For Referral No [...] Twice a day for 30 day(s) Active Immunizations Vaccine Route Administration Date Status Comme nts Flu vaccine no Preserv 3 and > Unknown 12/30/2013 Admin istered Influenza Unknown 02/08/2021 Administered Problems Problem Type SNOMED Code ICD Code Onset Dates Problem Status W/U Status Risk Notes Problem 336150511 Colon cancer screening (Z12.11) Active confirmed Problem 001519055 Long-term use of aspirin therapy (Z79.82) Active confirmed Problem 873040832 FH: colon cancer (Z80.0) Active confirmed Plan Of Treatment Future Test Test Name Order Date COLONOSCOPY 07/16/2014 COLONOSCOPY 11/30/2021 Insurance Providers Payer Name Payer Address Payer Phone Subscriber Number Group Number Insured Name Patient Relationship to Insured Coverage Start Date Coverage End Date MEDICARE OF [place] [address] [place] [address] [id number] ARACELI KC Self - patient is the insured MED[employer] ATTN CLAIMS [address] [place] [address] [id number] ARACELI KC Self - patient is the insured Medical (General) History Medical History History ICD Code Colonoscopy 02/05/15, normal, five-year followup for family history Glaucoma diabetes mellitus elevated cholesterol Osteoporosis Anemia Ptosis Surgical History Surgery Date(Month/Year) ear surgery detached retina cataract-lens implants
--- OUTSIDE RECORDS SUMMARY | 2024-05-22 17:26 | XMS_ITS | Patient Health Record ---
Author Organization [facility] Sravanthi ariella Pickering Address [address] [place] [address] Care Team Providers Care Certified Master Locksmith Name Role Phone Jakub Gillespie MD Primary Care Provider UnavailEver Collins Unavailable [phone] Allergies Allergen (clinical drug ingredient) Drug/Non Drug [...] W/U Status Risk Notes Problem Tinea unguium (604448744) Tinea unguium (B35.1) Active confirmed Problem Type II diabetes mellitus without complication (840518017) Type 2 diabetes mellitus without complications (E11.9) Active confirmed Encounters Encounter Location Date Provider Diagnosis [facility] [address] [address] 04/14/2024 Ever Mata Plan Of Treatment Pending Test Test Name Order Date [id number] NAIL, 6 OR MORE 08/09/2012 [id number] NAIL, 6 OR MORE 12/31/2012 38390-RAGPUSW NAIL, 6 OR MORE 10/17/2016 45479-LWAFNDC NAIL, 6 OR MORE 11/27/2017 81804-GPKFODC NAIL, 6 OR MORE 02/26/2018 93941-NIZRAJI NAIL, 6 OR MORE 05/28/2018 69251-MEWFCWF NAIL, 6 OR MORE 08/30/2018 45034-EPZWNCZ NAIL, 6 OR MORE 12/06/2018 43251-CEFYYSH NAIL, 6 OR MORE 08/28/2017 80188-FOXUFBT NAIL, 6 OR MORE 04/08/2019 26913-Fyiotaez Plate 10/17/2016 84529-Fvqhlphu Plate 11/27/2017 89828-Luzrnkcw Plate 12/06/2018 56972-Ccjykpcr Plate 08/28/2017 22526-Qhtlzdng Plate 08/09/2012 46781-Pikantmp Plate 12/31/2012 09750-Iktumraf Plate Each Additional 00361- Debride <25 sq cm 12/31/2012 Next Appt Details Provider Name:Ever Mata , 06/24/2024 01:00:00 PM, [address] [place] [address], [phone], Insurance Providers Payer Name Payer Address Payer Phone Subscriber Number Group Number Insured Name Patient Relationship to Insured Coverage Start Date Coverage End Date Medicare National Govt Svcs Inc [address] [place] [address] [phone] [id number] Susy Lacy Self - patient is the insured [employer] Blue Shield [address] [place] [address] [phone] [id number] Peloquin Susy Self - patient is the insured Medical (General) History Medical History History ICD Code Arthritis cataracts diabetic osteoporosis cholesterol Glaucoma Measles Mumps Chicken pox Surgical History Surgery Date(Month/Year) ear surgery cataract surgery 10/2012 Hospitalization History Reason Date(Month/Year) Patient had iv yesterday for osteoporosi s. 07/09/2012
== END 2024-05-22 15:04 | disposition home or self-care (01) ==
PROVIDERS: PCP Nurse Practitioner Family; Visit Provider Nurse Practitioner Adult Health
DX: E11.65 Type 2 diabetes mellitus with hyperglycemia (principal)
CPT/HCPCS: 99214; G2211

== ENCOUNTER → 2024-05-22 14:12 | Outpatient (BNVA) | payer MEDICARE, SELFPAY | PROVIDERS: PCP Nurse Practitioner Family; Visit Provider Nurse Practitioner Adult Health | DX: E11.65 Type 2 diabetes mellitus with hyperglycemia (principal); Z79.84 Long term (current) use of oral hypoglycemic drugs | CPT/HCPCS: 82947; 83036; 99212 ==

== ENCOUNTER 2024-06-12 12:12 | Outpatient (REF) | payer MEDICARE, SELFPAY ==
--- OUTSIDE RECORDS SUMMARY | 2024-06-12 15:31 | XMS_ITS | Patient Health Record ---
Author Organization [facility] Address [address] [place] [address] Care Team Providers Care Teaching Aide Name Role Phone Lemuel LUGO Mary Jesus Primary Care Provider Un available Ruben Valdes Jr Unavailable [phone] Allergies Allergen (clinical drug ingredient) Drug/Non Drug [...] Problem Status W/U Status Risk Notes Problem 426339356 Colon cancer screening (Z12.11) Active confirmed Problem 758214459 Long-term use of aspirin therapy (Z79.82) Active confirmed Problem 567226463 FH: colon cancer (Z80.0) Active confirmed Plan Of Treatment Future Test Test Name Order Date COLONOSCOPY 07/16/2014 COLONOSCOPY 11/30/2021 Insurance Providers Payer Name Payer Address Payer Phone Subscriber Number Group Number Insured Name Patient Relationship to Insured Coverage Start Date Coverage End Date MEDICARE OF [place] [address] [place] [address] [id number] ARACELI KC Self - patient is the insured MED[employer] ATTN CLAIMS [address] [place] [address] [id number] 2 ARACELI KC Self - patient is the insured Medical (General) History Medical History History ICD Code Colonoscopy 02/05/15, normal, five-year followup for family history Glaucoma diabetes mellitus elevated cholesterol Osteoporosis Anemia Ptosis Surgical History Surgery Date(Month/Year) ear surgery detached retina cataract-lens implants
--- OUTSIDE RECORDS SUMMARY | 2024-06-12 15:31 | XMS_ITS ---
Author Organization [facility] Address [address] [place] [address] Care Team Providers Care Playground Official Name Role Phone Jose Miguel SHAIKH, Jakub Primary Care Provider Unavailab Ever Andrade Unavailable [phone] REASON FOR VISIT ON Encounters Encounter Location Date Provider Diagnosis [address] [address] 04/14/2024 Ever Mata Plan Of Treatment Next Appt Details Provider Name:Ever Mata , 06/24/2024 01:00:00 PM, [address] [place] [address], [phone], Progress Notes * Susy KC ADOB: (73 yo F)Acc No.[id number]:04/14/2024 Patient:?Susy KC :1950???Age:73 Y???Sex:Female Address:[address] [facility], [address] , [place] [address] * true * Date:? Generated for Lucinda brothers/Kady/eTransmitting on:?06/12/2024 03:31 PM EDT
--- OUTSIDE RECORDS SUMMARY | 2024-06-12 15:32 | XMS_ITS | Patient Health Record ---
Author Organization [facility] Sravanthi ariella Cornish Address [address] [place] [address] Care Team Providers Care Balance Weigher Name Role Phone Jakub Gillespie MD Primary Care Provider UnavailEver Collins Unavailable [phone] Allergies Allergen (clinical drug ingredient) Drug/Non Drug Allergy documented on EMR Reaction Allergy Type Onset Date Status amoxicillin Amoxicillin hives Drug Allergy Act myles acetaminophen Midol Unknown Drug Allergy Act myles Penicillin hives Drug Allergy Active aspirin Aspirin Unknown Drug Allergy Active Reason For Referral [...] Additional Findings: Tobacco Non-User Current no n-smoker Tobacco use other than smoking: Question Answer Notes Are you an other tobacco user? No Problems Problem Type SNOMED Code ICD Code Onset Dates Problem Status W/U Status Risk Notes Problem Tinea unguium (355889742) Tinea unguium (B35.1) Active confirmed Problem Type II diabetes mellitus without complication (183770351) Type 2 diabetes mellitus without complications (E11.9) Active confirmed Encounters Encounter Location Date Provider Diagnosis [facility] [place] [address] [place] [address] 04/14/2024 Everchloé FloresAdolfo Plan Of Treatment Pending Test Test Name Order Date [id number] NAIL, 6 OR MORE 08/09/2012 40463-ZCWSLME NAIL, 6 OR MORE 12/31/2012 67986-THEKSRM NAIL, 6 OR MORE 10/17/2016 78952-SHGUMLK NAIL, 6 OR MORE 11/27/2017 57451-VVHYWAE NAIL, 6 OR MORE 02/26/2018 96260-FLUUSOK NAIL, 6 OR MORE 05/28/2018 36917-EKMGWND NAIL, 6 OR MORE 08/30/2018 12408-UOWEXXX NAIL, 6 OR MORE 12/06/2018 99807-VIBMGDA NAIL, 6 OR MORE 08/28/2017 45356-ZUJXYVR NAIL, 6 OR MORE 04/08/2019 36651-Kkugjjrt Plate 10/17/2016 34147-Eollvbfs Plate 11/27/2017 61062-Oivuozqo Plate 12/06/2018 79948-Njuiainf Plate 08/28/2017 89316-Dwieyzau Plate 08/09/2012 15582-Xbpfpild Plate 12/31/2012 34468-Cdftuokj Plate Each Additional 50297- Debride <25 sq cm 12/31/2012 Next Appt Details Provider Name:Ever Patria Mata , 06/24/2024 01:00:00 PM, [address] [place], [address], Insurance Providers Payer Name Payer Address Payer Phone Subscriber Number Group Number Insured Name Patient Relationship to Insured Coverage Start Date Coverage End Date Medicare National Govt Svcs Inc [address] [place] [address] [phone] [id number] Susy Lacy Self - patient is the insured [employer] [facility] [address] [place] [address] [phone] [id number] 2 Raemaddiealyssia Susy Self - patient is the insured Medical (General) History Medical History History ICD Code Arthritis cataracts diabetic osteoporosis cholesterol Glaucoma Measles Mumps Chicken pox Surgical History Surgery Date(Month/Year) ear surgery cataract surgery 10/2012 Hospitalization History Reason Date(Month/Year) Patient had iv yesterday for osteoporosi s. 07/09/2012
== END 2024-06-12 12:13 | disposition home or self-care (01) ==
LOC: HO.MAMMO 12:12
PROVIDERS: Absent Provider Physician Assistant; PCP Nurse Practitioner Adult Health; Visit Provider Internal Medicine
DX: Z12.31 Encounter for screening mammogram for malignant neoplasm of breast (principal)
CPT/HCPCS: 77063; 77067

== ENCOUNTER → 2024-06-12 13:15 | Outpatient (BNV) | payer MEDICARE, SELFPAY | PROVIDERS: Absent Provider Physician Assistant; PCP Nurse Practitioner Adult Health; Visit Provider Internal Medicine | DX: Z12.31 Encounter for screening mammogram for malignant neoplasm of breast (principal) | CPT/HCPCS: 77063; 77067 ==

== ENCOUNTER 2024-06-16 13:41 | Outpatient (AMB) | payer MEDICARE, SELFPAY ==
--- NOTE | 2024-06-16 14:57 | AM.OFFVISNUR ---
Intake Visit Reasons: Eventiy #4 Allergies penicillin V Allergy (Unknown, Verified 05/22/24 14:38) Unknown empagliflozin [From Jardiance] Adverse Reaction (Intermediate, Verified 05/22/24 14:38) uti Office Meds romosozumab-aqqg 210 mg/2.34 mL(105 mg/1.17 mL x2)subcutaneous syringe Performing Provider: Henry Lynch MD Performing Location: [facility] Endocrinology Administered by: Suzan Herrera RN on 06/16/24 14:13 Dose Route Admin Location Dispensed Lot Number Expiration Date NDC Licensed Appraiser 210 mg subcut bilateral upper arms 2.34 mL [id number] 06/16/26 33666-318-34 AMGEN Comments: Consent form signed by patient. Pt tolerated injection well and denies any adverse reactions with previous injections. Assessment & Plan Assessment & Plan Orders: Orders AMB Romosozumab Injection Patient Supplied Today M81.0 - Age-related osteoporosis without current pathological fracture Medications: New romosozumab-aqqg 210 mg (2.34 mL) subcut ONCE 2.34 mL 0RF M81.0 - Age-related osteoporosis without current pathological fracture Coding
--- OUTSIDE RECORDS SUMMARY | 2024-06-16 15:27 | XMS_ITS ---
Author Organization [facility] Address [address] [place] [address] Care Team Providers Care Cart Driver Name Role Phone Marin SHAIKH, Bal Primary Care Provider UnaEver Soliz Unavailable [phone] REASON FOR VISIT ON Encounters Encounter Location Date Provider Diagnosis [address] [address] 04/14/2024 Ever Mata Plan Of Treatment Next Appt Details Provider Name:Ever Mata , 06/24/2024 01:00:00 PM, [address] [place] [address], [phone], Progress Notes * Susy KC ADOB: (73 yo F)Acc No.[id number]:04/14/2024 Patient:?Susy KC :1950???Age:73 Y???Sex:Female Address:[address] [facility] , [place] [address] * true * Date:? Generated for Lucinda brothers/Kady/Anthonysmitting on:?06/16/2024 03:26 PM EDT
--- OUTSIDE RECORDS SUMMARY | 2024-06-16 15:27 | XMS_ITS | Patient Health Record ---
Author Organization [facility] ariella [place] Address [address] [place] [address] Care Team Providers Care Press Operator Helper Name Role Phone Bal Funes MD Primary Care Provider Ever Montano Unavailable [phone] Allergies Allergen (clinical drug ingredient) Drug/Non Drug [...] W/U Status Risk Notes Problem Tinea unguium (908140009) Tinea unguium (B35.1) Active confirmed Problem Type II diabetes mellitus without complication (974836667) Type 2 diabetes mellitus without complications (E11.9) Active confirmed Encounters Encounter Location Date Provider Diagnosis [facility] [place] [address] [place] [address] 04/14/2024 Everchloé FloresAdolfo Plan Of Treatment Pending Test Test Name Order Date [id number] NAIL, 6 OR MORE 08/09/2012 21695-TTUQHIA NAIL, 6 OR MORE 12/31/2012 00687-CNTMREW NAIL, 6 OR MORE 10/17/2016 86676-UJXBXPX NAIL, 6 OR MORE 11/27/2017 45499-FEKKKOQ NAIL, 6 OR MORE 02/26/2018 22379-RCBLTXY NAIL, 6 OR MORE 05/28/2018 77741-ZQDRASW NAIL, 6 OR MORE 08/30/2018 98634-XFJBMYR NAIL, 6 OR MORE 12/06/2018 40610-UZNZVZD NAIL, 6 OR MORE 08/28/2017 72945-VOTBNTE NAIL, 6 OR MORE 04/08/2019 24491-Lrdwlrdm Plate 10/17/2016 38475-Kcpjntir Plate 11/27/2017 20791-Xxmwansa Plate 12/06/2018 01170-Dmrraztw Plate 08/28/2017 12939-Ocsryijo Plate 08/09/2012 88505-Mqumyqup Plate 12/31/2012 19327-Wfrmtdtj Plate Each Additional 93659- Debride <25 sq cm 12/31/2012 Next Appt Details Provider Name:Ever Patria Mata , 06/24/2024 01:00:00 PM, [address] [place] [address], [phone], Insurance Providers Payer Name Payer Address Payer Phone Subscriber Number Group Number Insured Name Patient Relationship to Insured Coverage Start Date Coverage End Date Medicare National Govt Svcs Inc [address] [place] [address] [id number] TonyaalyssiaSusy Self - patient is the insured [email or web address] [address] [place] [address] [phone] [id number] RaemaddieElvira cadescilla Self - patient is the insured Medical (General) History Medical History History ICD Code Arthritis cataracts diabetic osteoporosis cholesterol Glaucoma Measles Mumps Chicken pox Surgical History Surgery Date(Month/Year) ear surgery cataract surgery 10/2012 Hospitalization History Reason Date(Month/Year) Patient had iv yesterday for osteoporosi s. 07/09/2012
--- OUTSIDE RECORDS SUMMARY | 2024-06-16 15:27 | XMS_ITS | Patient Health Record ---
Author Organization [facility] Address [address] [place] [address] Care Team Providers Care Studio Musician Name Role Phone Lemuel LUGO Mary Jesus Primary Care Provider Un available Ruben Valdes Jr Unavailable Allergies Allergen (clinical drug ingredient) Drug/Non Drug [...] Problem Status W/U Status Risk Notes Problem 071096969 Colon cancer screening (Z12.11) Active confirmed Problem 721027351 Long-term use of aspirin therapy (Z79.82) Active confirmed Problem 303029576 FH: colon cancer (Z80.0) Active confirmed Plan Of Treatment Future Test Test Name Order Date COLONOSCOPY 07/16/2014 COLONOSCOPY 11/30/2021 Insurance Providers Payer Name Payer Address Payer Phone Subscriber Number Group Number Insured Name Patient Relationship to Insured Coverage Start Date Coverage End Date MEDICARE OF [place] [address] [place] [address] [id number] ARACELI KC Self - patient is the insured MED[employer] ATTN CLAIMS [address] [place] [address] [id number] ARACELI KC Self - patient is the insured Medical (General) History Medical History History ICD Code Colonoscopy 02/05/15, normal, five-year followup for family history Glaucoma diabetes mellitus elevated cholesterol Osteoporosis Anemia Ptosis Surgical History Surgery Date(Month/Year) ear surgery detached retina cataract-lens implants
== END 2024-06-16 14:21 | disposition home or self-care (01) ==
LOC: HO.ENCR 13:42
PROVIDERS: PCP Family Medicine
DX: M81.0 Age-related osteoporosis without current pathological fracture (principal)

== ENCOUNTER → 2024-06-16 13:41 | Outpatient (BNVA) | payer MEDICARE, SELFPAY | PROVIDERS: PCP Family Medicine | DX: M81.0 Age-related osteoporosis without current pathological fracture (principal) | CPT/HCPCS: 96372; J3111 ==

== ENCOUNTER 2024-06-30 13:18 | Outpatient (AMB) | payer MEDICARE, SELFPAY ==
--- NOTE | 2024-06-30 13:25 | A.OFFVIS_ITS ---
Vital Signs 06/30/24 13:26 Height 4 ft 10.66 in Weight 93 lb 14.671 oz BMI 19.2 BP 94/48 L Blood Pressure Location Lt brachial Position Sitting Pulse 80 Pulse Source Pulse Oximeter Pulse Oximetry (%) 96 Oxygen Delivery Method Room Air Intake Visit Reasons: f/u osteoporosis Intake Note: Patient present today for Osteoporosis follow up. 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 Required: No Accompanied by: Self / Same As Patient Allergies penicillin V Allergy (Unknown, Verified 06/30/24 13:27) Unknown empagliflozin [From Jardiance] Adverse Reaction (Intermediate, Verified 06/30/24 13:27) uti Medication List - Last Reconciled 06/30/24 by Henry Lynch MD [accu-check As directed] atorvastatin 40 mg PO DAILY blood sugar diagnostic (Accu-Chek Guide test strips) As directed twice a day blood-glucose meter As directed calcium citrate-vitamin D3 200 mg-6.25 mcg (250 unit) (Citracal-D3 Petites) 2 tabs PO TID 30 days dorzolamide-timolol 22.3-6.8 mg/mL 1 drp ophthalmic (eye) BID ferrous sulfate 325 mg PO DAILY lancing device with lancets (Accu-Chek FastClix Lancing Device kit) As directed romosozumab-aqqg (Evenity) 210 mg (2.34 mL) subcut .qmonthly sitagliptin phos-metformin 50-1,000 mg ER (Janumet XR) 2 tabs PO DAILY vit C,B-Ac-yvfwm-lutein-zeaxan 250-90-40-1 mg 1 cap PO BID HPI Comments Details: 73 YO Female with PMHx Osteoporosis who is seen in F/U for the same. She was previously followed by Dr. Davies and prior to that Dr. Rowe. . First diagnosed with Osteoporosis in 2005 with her first DEXA revealing severe Osteoporosis of the spine and the hip. She underwent evaluation for secondary causes of Osteoporosis which were WNL, but it does not appear a 24 hour urine has ever been completed.. Subsequently was found to be normal She initially was started on treatment with oral bisphosphonates, and even received 1 dose of IV Reclast. She was then started on Forteo by Dr. Rowe in 2013, and completed a 2 year course of this. She was switched to Prolia as of 07/2015 and has continued on this ever since. Her last dose 07/17/2022 No history of pathologic fracture or ONJ. Has 4 servings of dietary calcium per day in the form of milk and yogurt. Does not take a Calcium supplement. Does not take a separate Vitamin D supplement. Denies ever using PPI, anticoagulant, antiepileptic or glucocorticoid medication. Does weight bearing exercise 2 days per week in the form of resistance training. Fracture history: Denies Height loss: Denies DIRECTOR SAFETY history: Menarche was age 11. Menses were always regular. . Menopause was age 52. She did not use HRT. Denies history of Kidney stones. Denies family history of Osteoporosis or hip fracture. UTD on dental cleanings and sees dentist every 6 months. No planned upcoming dental work or extractions. DXA dated: 10/04/2021 FINDINGS: AP SPINE L1-L4: Current: BMD 0.880 g/cm2, Z-score -0.1, T-score -2.5, osteoporosis, 2.1% increase from previous, 10.8% increase from baseline (<5% change is not significant). Prior: BMD 0.862 g/cm2. Baseline: BMD 0.794 g/cm2. LEFT FEMUR, NECK: Current: BMD 0.649 g/cm2, Z-score -0.5, T-score -2.8, osteoporosis. Prior: BMD 0.610 g/cm2. Baseline: BMD 0.540 g/cm2. LEFT FEMUR, TOTAL: Current: BMD 0.761 g/cm2, Z-score 0.1, T-score -2.0, osteopenia, 3.1% increase from previous, 7.5% increase from baseline (<5% change is not significant). Prior: BMD 0.738 g/cm2. Baseline: BMD 0.708 g/cm2. Labs: Laboratory Tests 04/08/21 04/08/21 05/20/21 11:40 11:40 08:30 Creatinine Estimated GFR N-Telopeptide X-linked 25-OH Vitamin D Total PTH Intact Calcium (PTH Intact) Ur 24 Hour Volume 2075 Ur Creatinine 24 Hour 0.48 L Ur Calcium 24 Hr 62 77 05/20/21 08/31/21 08/31/21 08:30 10:12 10:12 Creatinine 0.80 Estimated GFR > 60 N-Telopeptide X-linked 25-OH Vitamin D Total PTH Intact Pending Calcium (PTH Intact) Pending Ur 24 Hour Volume 2325 Ur Creatinine 24 Hour 0.6 L Ur Calcium 24 Hr 12/06/21 12/06/21 12/06/21 07:50 09:31 09:31 Creatinine 0.73 Estimated GFR > 60 N-Telopeptide X-linked 18 25-OH Vitamin D Total 50.5 PTH Intact 44 Calcium (PTH Intact) 9.2 Ur 24 Hour Volume Ur Creatinine 24 Hour Ur Calcium 24 Hr Recent DEXA shows significant declines in spine and hip. Patient is currently on calcium and vitamin-D supplementation as well as Evenity started 04/21/24 The patient is a 73-year-old female presenting for the evaluation and management of osteoporosis. She is currently undergoing treatment with a Evenity intended for a one-year trial period, following previous inadequate responses to Reclast and Forteo and Prolia . Insurance approval was achieved on the grounds of past ineffective treatments. . Additionally, she has noted soreness in her arms following the administration of her current osteoporosis medication but finds relief through the application of ice. [facility] Medical History Anemia Glaucoma Vitamin D deficiency Dyslipidemia Osteoporosis Diabetic nephropathy associated with type 2 diabetes mellitus Diabetes type 2, uncontrolled Surgical History Hx of eye surgery Hx of cataract extraction H/O colonoscopy History of ear surgery Family History Father Heart disease Mother CHF (congestive heart failure) Social History Household Members: None Alcohol intake: never Patient Tobacco Use Status: Never used Tobacco service: No Current occupational status: retired Assessment & Plan Assessment & Plan (1) Osteoporosis: Code(s): M81.0 - Age-related osteoporosis without current pathological fracture Category: Medical Plan: 73 yo female with a history of Osteoporosis, which was quite severe.? She did have significant gains in her BMD with Forteo, and bones have remained stable.? Was treated with Prolia and transition to a dose of Reclast She has not had a recent fracture. She then transition to Evenity which she is taking since 04/2024 .? The plan is to continue the Evenity until 04/2025 then transition back to anti resorptive 1. Osteoporosis The patient will continue her monthly osteoporosis medication with planned transition to Prolia after completing the current treatment. Further assessment of bone density will be conducted in 2025. During the visit, we discussed the continuation of the current osteoporosis treatment for one year, with plans to transition to Prolia given her previous experiences with Reclast and Forteo. The patient's low blood pressure was reviewed, and the potential causes were linked back to Jardiance. We talked about the occurrence of arm soreness post-injection, suggesting icing as a mitigating strategy. The patient had an opportunity to ask questions regarding treatment plan. The patient expressed understanding and agreement with the above treatment plan. Patient was informed and verbally consented to the use of an ambient scribe for clinic note documentation during this visit. Coding Level of Care Code Est Pt Level 3 (59447) Diagnoses Osteoporosis M81.0
[2024-06-30 13:26] VITALS: BP 94/48; PULSE 80; O2SAT 96; BMI 19.2
--- OUTSIDE RECORDS SUMMARY | 2024-06-30 15:18 | XMS_ITS | Patient Health Record ---
Author Organization [facility] Address [address] [place] [address] Care Team Providers Care Distillery Miller Helper Name Role Phone Lemuel LUGO Mary Jesus Primary Care Provider Un available Ruben Valdes Jr Unavailable [phone] Allergies Allergen (clinical drug ingredient) Drug/Non [...] Problem Status W/U Status Risk Notes Problem [id number] Colon cancer screening (Z12.11) Active confirmed Problem 873818222 Long-term use of aspirin therapy (Z79.82) Active confirmed Problem 220433822 FH: colon cancer (Z80.0) Active confirmed Plan Of Treatment Future Test Test Name Order Date COLONOSCOPY 07/16/2014 COLONOSCOPY 11/30/2021 Insurance Providers Payer Name Payer Address Payer Phone Subscriber Number Group Number Insured Name Patient Relationship to Insured Coverage Start Date Coverage End Date MEDICARE OF [place] [address] [place] [address] [id number] ARACELI KC Self - patient is the insured MEDEX ATT[employer] CLAIMS [address] [place] [address] [id number] ARACELI KC Self - patient is the insured Medical (General) History Medical History History ICD Code Colonoscopy 02/05/15, normal, five-year followup for family history Glaucoma diabetes mellitus elevated cholesterol Osteoporosis Anemia Ptosis Surgical History Surgery Date(Month/Year) ear surgery detached retina cataract-lens implants
--- OUTSIDE RECORDS SUMMARY | 2024-06-30 15:18 | XMS_ITS | Patient Health Record ---
Author Organization [facility] ariella Volga Address [address] [place] [address] Care Team Providers Care Attending Urologist Name Role Phone Marin SHAIKH, Bal Primary Care Provider Ever Montano Unavailable [phone] Allergies Allergen (clinical drug ingredient) Drug/Non Drug Allergy documented on EMR Reaction Allergy Type Onset Date Status amoxicillin Amoxicillin hives Drug Allergy Act myles acetaminophen Midol Unknown Drug Allergy Act myles Penicillin hives Drug Allergy Active aspirin Aspirin Unknown Drug Allergy Active Results Component Value Reference Range Notes HEMOGLOBIN A1C (GLYCOHEMOGLO BIN) Reviewed date:06/24/2024 12:58:55 PM Interpretation: Performing Lab: Notes/Report: HEMOGLOBIN A1C % (HH) 8.0 Reason For Referral No Information Medications Medication SIG (Take, Route, Frequency, Duration) Notes Start Date End Date Status Aspirin 81 MG 1 tablet Orally Once a day for 30 day(s) Not-Taking Janumet XR Active Multi Vitamin/Minerals as directed Orally Not-Taking Extra Depth Orthopedic Shoes, (1) Pair With (3) Pair Custom Heat Molded Multidensity Innersoles Dx: NIDDM/PVD(E11.51), Hammertoe Foot Deformity(M20.41,M20.42) , Preulcerative Skin Lesion(s)(L85.1) Wear Daily for 365 days 06/24/2024 Active Atorvastatin Calcium 10 MG 1 tablet Orally Once a day for 30 day(s) Not-Taking Magnesium 300 MG 1 capsule with a latisha l Orally Once a day for 30 day(s) Not-Taking Citracal Plus as directed Orally Not-Taking Travatan Z Not-Takin g Iron Active glipiZIDE 10 MG 1 tablet Orally Once a day for 30 day(s) Unknown Azopt Not-Taking Calcium Active Daily Vitamins for Women Active Invokana Unknown Immunizations Vaccine Route Administration Date Status Comme nts Influenza Unknown 01/22/2017 Administered Influenza Unknown 01/21/2018 Administered Influenza Unknown 12/11/2018 Administered Social History Tobacco Use: Social History Observation Description Date Details (start date - stop date) Never Smoker NA - NA Tobacco use other than smoking: Question Answer Notes Are you an other tobacco user? No Tobacco Control (Standard) Question Answer Notes Tobacco use: Nonsmoker Additional Findings: Tobacco non-user Current no nsmoker AUDIT-C (Standard) Question Answer Notes Did you have a drink containing alcohol in the p ast year? No Points 0 Interpretation Negative Problems Problem Type SNOMED Code ICD Code Onset Dates Problem Status W/U Status Risk Notes Problem Acquired hammer toe of right foot (3641359889585 105) Other hammer toe(s) (acquired), right foot (M20.41) Active confirmed Problem Type 2 diabetes mellitus with peripheral angiopathy (504604817) Type 2 diabetes mellitus with diabetic peripheral angiopathy without gangrene (E11.51) Active confirmed Q7(A), Q8(2B), Q9(1B,2C) Problem Acquired hammer toe of left foot (0637911709768 103) Other hammer toe(s) (acquired), left foot (M20.42) Active confirmed Vital Signs Blood pressure diastolic 70 mm Hg 06/24/2024 Height 4 ft 11 in in 06/24/2024 Blood pressure systolic 130 mm Hg 06/24/2024 Weight 98 lbs 06/24/2024 BMI 19.79 kg/m2 06/24/2024 Procedures Procedure Date Ordered Date Performed Result Body Sit e 70181-SMTQYHG NAIL, 6 OR MORE 06/24/2024 N/A 79819-IDXY SKIN LESIONS, 2 TO 4 06/24/2024 N/A Encounters Encounter Location Date Provider Diagnosis [facility] [address] [place] [address] 06/24/2024 Ever Mata Type 2 diabetes mellitus with diabetic peripheral angiopathy without gangrene E11.51 ; Tinea unguium B35.1 ; Pain in right toe(s) M79.674 ; Pain in left toe(s) M79.675 ; Other hammer toe(s) (acquired), left foot M20.42 and Other hammer toe(s) (acquired), right foot M20.41 [facility] [address] [place] [address] 04/14/2024 Ever Mata Assessments Encounter Date Diagnosis (ICD Code) Assessment Notes Treatment Notes Treatment Clinical Notes Section Notes 06/24/2024 Type 2 diabetes mellitus with diabetic peripheral angiopathy without gangrene (ICD-10 - E11.51) Q7(A), Q8(2B), Q9(1B,2C) 06/24/2024 Tinea unguium (ICD-10 - B35.1) 06/24/2024 Pain in right toe(s) (ICD-10 - M79.674) 06/24/2024 Pain in left toe(s) (ICD-10 - M79.675) 06/24/2024 Other hammer toe(s) (acquired), left foot (ICD-10 - M20.42) 06/24/2024 Other hammer toe(s) (acquired), right foot (ICD-10 - M20.41) Patient Educated with: DIABETIC FOOT CARE INSTRUCTIONS.p df (DIABETIC FOOT CARE INSTRUCTIONS.p df) Plan Of Treatment Pending Test Test Name Order Date 64031-TRRMDHW NAIL, 6 OR MORE 08/09/2012 56636-ZGBRACT NAIL, 6 OR MORE 12/31/2012 78787-VWVBVHK NAIL, 6 OR MORE 10/17/2016 97182-TAXILES NAIL, 6 OR MORE 11/27/2017 25851-ITMZYTY NAIL, 6 OR MORE 02/26/2018 13954-IRUARAZ NAIL, 6 OR MORE 05/28/2018 53444-GXTOXBP NAIL, 6 OR MORE 08/30/2018 32347-BIFPRNP NAIL, 6 OR MORE 12/06/2018 73746-GXVNXKJ NAIL, 6 OR MORE 08/28/2017 21729-JRWZIBS NAIL, 6 OR MORE 04/08/2019 76513-LLTUPUE NAIL, 6 OR MORE 06/24/2024 58514-Bcdlffms Plate 11/27/2017 08250-Qxsupyuc Plate 12/06/2018 59911-Nejxptrd Plate 08/28/2017 08349-Wxkyupzh Plate 08/09/2012 35365-Swpfzmox Plate 12/31/2012 54931-Zqaojhmg Plate 10/17/2016 30329-Uzzursux Plate Each Additional 43083- Debride <25 sq cm 12/31/2012 98718-XFME SKIN LESIONS, 2 TO 4 06/25/19 25 Next Appt Details Provider Name:Ever Mata , 09/30/2024 01:00:00 PM, [address] [place], [address], Insurance Providers Payer Name Payer Address Payer Phone Subscriber Number Group Number Insured Name Patient Relationship to Insured Coverage Start Date Coverage End Date Medicare [facility] [address] [place] [address] [id number] Peloalyssia Susy Self - patient is the insured 4 [employer] Blue [employer] [address] [place] [address] [phone] [id number] 2 Peloquin, Susy Self - patient is the insured Medical (General) History Medical History History ICD Code Arthritis cataracts diabetic osteoporosis cholesterol Glaucoma Measles Mumps Chicken pox Surgical History Surgery Date(Month/Year) ear surgery cataract surgery 10/2012 Hospitalization History Reason Date(Month/Year) Patient had iv yesterday for osteoporosi s. 07/09/2012
--- OUTSIDE RECORDS SUMMARY | 2024-06-30 15:18 | XMS_ITS ---
Author Organization [facility] a[place] Address [address] [place] [address] Care Team Providers Care Obstetrics Technician Name Role Phone Marin SHAIKH, Bal Primary Care Provider Ever Montano Unavailable [phone] Allergies Allergen (clinical drug ingredient) Drug/Non Drug Allergy documented on EMR Reaction Allergy Type Onset Date Status amoxicillin Amoxicillin hives Drug Allergy Act myles acetaminophen Midol Unknown Drug Allergy Act myles Penicillin hives Drug Allergy Active aspirin Aspirin Unknown Drug Allergy Active REASON FOR VISIT At Risk Footcare, Painful Nail(s) aggravated by shoes and causing difficulty standing/walking, Toe Irritation Medications Medication SIG (Take, Route, Frequency, Duration) Notes Start Date End Date Status Magnesium 300 MG 1 capsule with a latisha l Orally Once a day for 30 day(s) Not-Taking Citracal Plus as directed Orally Not-Taking Travatan Z Not-Takin g glipiZIDE 10 MG 1 tablet Orally Once a day for 30 day(s) Unknown Azopt Not-Taking Aspirin 81 MG 1 tablet Orally Once a day for 30 day(s) Not-Taking Janumet XR Active Multi Vitamin/Minerals as directed Orally Not-Taking Atorvastatin Calcium 10 MG 1 tablet Orally Once a day for 30 day(s) Not-Taking Calcium Active Extra Depth Orthopedic Shoes, (1) Pair With (3) Pair Custom Heat Molded Multidensity Innersoles Dx: NIDDM/PVD(E11.51), Hammertoe Foot Deformity(M20.41,M20.42) , Preulcerative Skin Lesion(s)(L85.1) Wear Daily for 365 days 06/24/2024 Active Iron Active Daily Vitamins for Women Active Invokana Unknown Social History Tobacco Use: Social History Observation [...] Problem Status W/U Status Risk Notes Problem Type 2 diabetes mellitus with peripheral angiopathy (180703359) Type 2 diabetes mellitus with diabetic peripheral angiopathy without gangrene (E11.51) Active confirmed Q7(A), Q8(2B), Q9(1B,2C) Problem Acquired hammer toe of right foot (8699339584363 105) Other hammer toe(s) (acquired), right foot (M20.41) Active confirmed Problem Acquired hammer toe of left foot (0841925186919 103) Other hammer toe(s) (acquired), left foot (M20.42) Active confirmed Vital Signs Blood pressure systolic 130 mm Hg 06/25/19 25 Blood pressure diastolic 70 mm Hg 025 Height 4 ft 11 in in 06/24/2024 Weight 98 lbs 06/24/2024 BMI 19.79 kg/m2 06/24/2024 Procedures Procedure Date Ordered Date Performed Result Body Sit e 89966-GWZDWIT NAIL, 6 OR MORE 06/24/2024 N/A 94598-OMZF SKIN LESIONS, 2 TO 4 06/24/2024 N/A Encounters Encounter Location Date Provider Diagnosis [facility] [place] [address] [place] [address] 06/24/2024 Ever Mata Type 2 diabetes mellitus with diabetic peripheral angiopathy without gangrene E11.51 ; Tinea unguium B35.1 ; Pain in right toe(s) M79.674 ; Pain in left toe(s) M79.675 ; Other hammer toe(s) (acquired), left foot M20.42 and Other hammer toe(s) (acquired), right foot M20.41 Assessments Encounter Date Diagnosis (ICD Code) Assessment [...] FOOT CARE INSTRUCTIONS.p df) Plan Of Treatment Medication Medication Name Sig Start Date Stop Date Notes Extra Depth Orthopedic Shoes , (1) Pair With (3) Pair Custom Heat Molded Multidensity Innersoles Dx: NIDDM/PVD(E11.51), Hammertoe Foot Deformity(M20.41,M20.42), Preulcerative Skin Lesion(s)(L85.1) Wear Daily for 365 days 06/24/2024 Treatment Notes Assessment Notes Other hammer toe(s) (acquired), right fo ot Patient Educated with: DIABETIC FOOT CARE INSTRUCTIONS.pdf (DIABETIC FOOT CARE INSTRUCTIONS.pdf) Pending Test Test Name Order Date 18485-SQUJQJU NAIL, 6 OR MORE 06/24/2024 60176-ADGV SKIN LESIONS, 2 TO 4 06/25/19 25 Next Appt Details Follow Up: prn, Reason: Provider Name:Ever Mata , 09/30/2024 01:00:00 PM, [address] [place] [address], [place], [address], Procedure Notes * Category Sub-Category Detail Notes Debride Nail 6-10 Nail debridement Due to the cl inical pathology outlined in the exam findings, performance of this nail treatment is medically necessary as its management by an unskilled/untrained nonprofessional would put this patients foot and overall health at risk. Therefore, debridement to affected nail(s), as described in exam ( TA, T1, T2, T4, T5, T6, T8, T9 ), was performed exclusively by the physician of record to reduce/remove overall nail length, girth, thickness, subungual debris, and necrotic tissue, by manual and/or electrical means through the use of a nail nipper and/or dremel-type tool and cutter grinder, to a more viable healthy nail plate or bed tissue 6-10 nails in total. Silver nitrate was used for any petechial bleeding as necessary. Definitive antifungal treatment options, both pharmaceutical and surgical, have been reviewed and discussed with the patient. The patient solely prefers the use of intermittent/as needed professional debridement services for their nail condition and understands the need for additional periodic treatments to maintain effectiveness in symptomatic relief - 31371 Keratoma Treatment Parring or Cutting o f Benign Hyperkeratotic Lesion(s) (-56) 2-4 Lesions - Due to the at risk nature of the patients medical condition as documented in the exam findings, performance of this keratoderma treatment is medically necessary as its management by an unskilled/untrained nonprofessional would put this patients foot and overall health at risk. Therefore, the benign hyperkeratotic lesions, (3) in total, locations as stated and described in the exam ( SUB MTH (s), 5, Right, Plantar Heel(s), B/L ), were pared, and/or cut utilizing a sterile 15 blade, tissue nippers, and/or power dremel instrumentation by the physician of record - 41847, Q8 Progress Notes * Susy KC ADOB: (73 yo F)Acc No.[id number]:06/24/2024 Progress Notes Patient:?Susy KC A Provider:?Ever Mata DPM :1950???Age:73 Y???Sex:Female D ate:06/24/2024 Address:[address] [place], [place] [id number] Pcp:Bal Funes MD Subjective: * Chief Complaints: * ???At Risk FootcarePainful N ail(s) aggravated by shoes and causing difficulty standing/walkingToe Irritation * HPI: ???At Risk footcare:?Pt States Last PCP Visit:?Date?01/03/2024 ???Toe pain:?Location:?B/L feet.?Duration:?several years.?Course:?worse.?Aggravated by:?shoes, any pressure.?Treatments:?change in shoes.? * ROS:?General/Constitutional:?Nausea?denies.?Vomiting?denies.?Hunger Thirst?denies.?Loss appetite?denies.?Chills?denies.?Fatigue?denies.?Fever?denies.?Night Sweats?denies.?Unexplained weight loss?admits.?Unexplained weight gain?denies.?HEENTM:?Dentures?denies.?Dizziness?denies.?Glasses/contacts?admits.?Retinopathy?den ies.?Blurred/double vision?denies.?TMJ?denies.?Discharge/drainage?denies.?Implants?denies.?Sore throat?denies.?Dental implants?denies.?Hard of hearing ?denies.?Difficulty chewing/swallowing/speaking?denies.?Nose bleeds?denies.?Sore mouth?denies.?Respiratory:?On O xygen?denies.?Pneumonia/pleurisy?denies.?Bronchitis?denies.?Emphysema?denies.?Co ughing?denies.?Cough blood?denies.?Shortness of breath?denies.?Wheezing?denies.?Cardiovascular:?Pacemaker?denies.?MVP?denies.?WPW?denies.?CHF?denies.?Heart attack?denies.?Septal defect?denies.?Rapid beat?denies.?Chest pain ?denies.?Atrial Fib.?denies.?Murmur/Palpitations?denies.?Gastrointestinal:?Hemorrhoids?denies.?Stomach/Abdominal pain?denies.?Dark blood stool?denies.?Irritable bowel ?denies.?Constipation?denies.?Diarrhea?denies.?Hematology:?Swelling?admits.?Clots?denies.?Varicose Veins?denies.?Bruising?denies.?Bleeding problem?denies.?Genitourinary:?Blood urine?denies.?Frequent/Painfu/urination/bladder control?denies.?Kidney stones?denies.?Infection (UTI)?denies.?Nephropathy?denies.?sex trans dis (STD)?denies.?Prostate?denies.?Musculoskeletal:?Hammertoes?admits.?Bunions?denies.?Back Pain?denies.?Muscle Cramps/ Resting?denies.?Muscle cramps / walking?denies.?Generalized aches and pains?denies.?Weakness?denies.?Integ.:?Pollock?denies.?Scars?denies.?Corns/calluses?admits.?Ingrown nails?admits.?Painful nails?admits.?Open Sores?denies.?Rashes?denies.?Neurologic:?Difficulty sleeping?denies.?Brain disorder?denies.?Numbness?denies.?Balance t rouble?denies.?Confusion?denies.?Fainting/blackouts?denies.?Tingling?denies.?Denis mors?denies.? * Medical History:? * Surgical History:?ear surger y cataract surgery 10/2012 * Hospitalization/Major Diagno stic Procedure:?Patient had iv yesterday for osteoporosis. 07/09/2012 * Family History:?Mother: dece ased, heart attack, hypertension, poor circulation, kidney/liver disease, foot problems.?Father: , cancer, heart attack, hypertension, poor circulation.?Siblings: diagnosed with Diabetic - NIDDM, Unspecified heart disease.? * Social History:?Tobacco Use:?Tobacco use other than smoking?Are you an other tobacco user??No ?Tobacco Control (Standard)?Tobacco use:?Nonsmoker ?Additional Findings: Tobacco non-user?Current nonsmoker ???Drugs/Alcohol:?Drugs?Have you used drugs other than those for medical reasons in the past 12 months??No ???Miscellaneous:?Caffeine: yes, frequency:, 3-5 cups per day. ?Children: no. ?Exercise: yes, walking. ?Marital status: single. 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 ???Drug/Alcohol:?AUDIT-C (Standard)?Did you have a drink containing alcohol in the past year??No ?Points?0 ?Interpretation?Negative * Medications:?TakingIron Tam y Vitamins for Women Calcium Janumet XR Taking Iron Taking Daily Vitamins for Women Taking Calcium Taking Janumet XR Not-Taking/PRNAspirin 81 MG Tablet Chewable 1 tablet Orally Once a day Atorvastatin Calcium 10 MG Tablet 1 tablet Orally Once a day Multi Vitamin/Minerals Tablet as directed Orally Citracal Plus Tablet as directed Orally Magnesium 300 MG Capsule 1 capsule with a meal Orally Once a day Travatan Z Azopt Not-Taking/PRN Aspirin 81 MG Tablet Chewable 1 tablet Orally Once a day Not-Taking/PRN Atorvastatin Calcium 10 MG Tablet 1 tablet Orally Once a day Not-Taking/PRN Multi Vitamin/Minerals Tablet as directed Orally Not-Taking/PRN Citracal Plus Tablet as directed Orally Not- Taking/PRN Magnesium 300 MG Capsule 1 capsule with a meal Orally Once a day Not-Taking/PRN Travatan Z Not-Taking/PRN Azopt UnknownglipiZIDE 10 MG Tablet 1 tablet Orally Once a day Invokana Medication List reviewed and reconciled with the patientUnknown glipiZIDE 10 MG Tablet 1 tablet Orally Once a day Unknown Invokana Medication List reviewed and reconciled with the patient * Allergies:?Penicillin: hives Amoxicillin: hivesMidolAspirinyes[Allergies Verified] Objective: * Vitals:?Ht:4 ft 11 in, Wt:98 , BMI:19.79, Shoe size:6W, BP:130/70mm Hg, BS:150, Ht-cm: 149.86 cm, Wt-k.45 kg. * ???Past Orders: ???Lab:HEMOGLOBIN A1C (GLYCO HEMOGLOBIN) (Order Date - 04/21/2024) (Collection Date & Time - 06/24/2024 12:57 PM) ? Value Reference Range ?HEMOGLOBIN A1C % (HH) 8.0 * Examination: ???Ophthalmology Referral: ?DIABETES EYE EXAM?Procedure Performed:?Yes ?Date of Exam Performed?05/18/2024 ?Diabetic Retinopathy Screening:?Yes ?Retinal Screening Performed:?Yes ?Findings of Diabetic Eye Exam:?no retinopathy?Vascular: ?DP PULSES (B):? 0/4, B/L.?PT PULSES (B):? 0/4, B/L.?CAPILLARY FILL TIME:? delayed, all digits, B/L.?TROPHIC CONDITION-TEXTURE/ELASTICITY/TURGOR/HAIR GROWTH (B):? decreased, fragile, thin, shiny, with sparse to absent hair growth, B/L.?TEMPERTURE GRADIENT (C):? decreased, cool to cool, proximal to distal, B/L.?PIGMENTATION:?rubrous, B/L.?EDEMA (C):?2/4, pitting, without aching pain, Leg(s), Ankle(s), B/L.?CLAUDICATION (C):?denies, B/L.?REST PAIN:?denies, B/L.?PARESTHESIA (C):?absent, B/L.?BURNING (C):?absent, B/L.?Nails: ?NAILS are:?Elongated, overgrown, dystrophic, lytic, greater than 3mm thick, discolored and friable with crumbly malodorous subungual debris, with pain on palpation, TA, T1, T2, T4, T5, T6, T8, T9, all other nails not described with characteristics as possessing mycosis are elongated, overgrown, and dystrophic.?Dermatologic: ?SKIN FINDINGS:?Skin exam reveals Keratotic lesion(s) located at, SUB MTH (s), 5, Right, Plantar Heel(s), B/L.?Orthopedic: ?MUSCLE STRENGTH:?5/5 all groups in a symmetrical fashion, B/L.?DIGITAL DEFORMITIES:?Digital contracture, PIPJ, 2-5 B/L, incompl-reducible to push-up test, no over, nor underlapping,?there is?evidence of shoe producing skin irritation.?FOOTWEAR EVALUATION:?worn, non-supportive, shoe gear properties exacerbate patient's foot/toe deformity.?Neurological: ?SENSORY:?Neurological exam reveals intact sensorium, pain sensation normal, vibration sensation intact, pinprick sensation is normal in the lower extremities, 5.07 monofilament test performed at plantar aspects of 5 varied sites per foot shows sensation, normal, B/L, Pt denies, anesthesia, burning, paresthesia, tingling, B/L.?General Examination: ?GENERAL APPEARANCE:?Reveals a pleasant, alert, well nourished, well- developed, well hydrated individual, who demonstrates proper attention to hygiene/body habitus, and is in no acute distress, Pt serves as own historian for office visit today.?ORIENTED:?person, place, and time.?FOOT EXAM:?Lower Extremity Neurological Exam performed:?Yes Date ?Visual exam of foot performed:?Yes ?Date?06/24/2024 ?Footwear Evaluation?Footwear Evaluation performed:?Yes??? Assessment: * Assessment: 1.?Type 2 diabetes mellitus with diabetic peripheral angiopathy without gangrene - E11.51???Specify :Q8???Notes :Q7(A), Q8(2B), Q9(1B,2C)???2.?Tinea unguium - B35.1???3.?Pain in right toe(s) - M79.674???4.?Pain in left toe(s) - M79.675???5.?Other hammer toe(s) (acquired), left foot - M20.42???Specify :Chronic problem, Worse (4),Rx Management (4)???6.?Other hammer toe(s) (acquired), right foot - M20.41 (Primary)???Specify :Chronic problem, Worse (4),Rx Management (4)??? Plan: * Treatment: 2.?Type 2 diabetes mellitus with diabetic peripheral angiopathy without gangrene?Procedure: 81575-HEGX SKIN LESIONS, 2 TO 4 3.?Tinea unguium?Procedure: 89003-ZBPTOXD NAIL, 6 OR MORE * Procedures:?Debride Nail 6-10:?Nail debridement?Due to the clinical pathology outlined in the exam findings, performance of this nail treatment is medically necessary as its management by an unskilled/untrained nonprofessional would put this patients foot and overall health at risk. Therefore, debridement to affected nail(s), as described in exam (?TA,?T1,?T2,?T4,?T5,?T6,?T8,?T9?), was performed exclusively by the physician of record to reduce/remove overall nail length, girth, thickness, subungual debris, and necrotic tissue, by manual and/or electrical means through the use of a nail nipper and/or dremel-type tool and cutter grinder, to a more viable healthy nail plate or bed tissue 6- 10 nails in total. Silver nitrate was used for any petechial bleeding as necessary. Definitive antifungal treatment options, both pharmaceutical and surgical, have been reviewed and discussed with the patient. The patient solely prefers the use of intermittent/as needed professional debridement services for their nail condition and understands the need for additional periodic treatments to maintain effectiveness in symptomatic relief - 89651.?Keratoma Treatment:?Parring or Cutting of Benign Hyperkeratotic Lesion(s)?(-56) 2-4 Lesions - Due to the at risk nature of the patients medical condition as documented in the exam findings, performance of this keratoderma treatment is medically necessary as its management by an unskilled/untrained nonprofessional would put this patients foot and overall health at risk. Therefore, the benign hyperkeratotic lesions, (3) in total, locations as stated and described in the exam (?SUB MTH (s),?5,?Right,?Plantar Heel(s),?B/L?), were pared, and/or cut utilizing a sterile 15 blade, tissue nippers, and/or power dremel instrumentation by the physician of record - 60774, Q8.? * Procedure Codes:?73473 DEBRI DE NAIL, 6 OR MORE, Modifiers: XS 16202 TRIM SKIN LESIONS, 2 TO 4, Modifiers: XS , Q8 * Preventive Medicine:? ??Counseling:?Discussion:?-04: Office or other outpatient visit for the evaluation and management of a new patient, which required a medically appropriate history and/or examination and MODERATE level of DECISION MAKING for: 1 OR MORE CHRONIC PROBLEM(S) THATS WORSENING, 2 STABLE CHRONIC PROBLEMS, A NEWLY DIAGNOSED PROBLEM WITH UNCERTAIN PROGNOSIS, AN ACUTE COMPLICATED INJURY WITH MULTIPLE TREATMENT OPTIONS, OR AN ACUTE PROBLEM WITH ACCOMPANYING SYSTEMIC SYMPTOMS, THAT POSE(S) A MODERATE RISK OF MORBIDITY. THIS CONDITION MAY ALSO INCLUDE RX DRUG MANAGEMENT, OR A DECISON FOR MINOR SURGERY. The visit on the day of the encounter encompassed interpreting the data and educating the patient as to the nature of their condition, treatment options available according to their individual PMH, meds, allergies, and overall health/living conditions, as well as any potential risks or complications that may occur from a failure to adhere to, and participate in, the recommended course of therapy. The discussion included a complete verbal, and/or written explanation of the examination results, any x-rays taken, the proposed diagnosis, and outline of the treatment plan. A schedule for future care needs was also explained. The patient verbalized an understanding of the instructions at this time and agreed to be an active participant in their treatment. If the patient should think of any questions or concerns after the visit, I have encouraged the patient to call the office.?Diabetic Footcare:?The patient was advised against future self nail/callus care due to inherent risks for infection, loss of limb/life given diabetes, peripheral vascular disease.?Digital Surgery:?Digital surgery was discussed with the patient, We elected to try conservative treatment at the present time, due to the patients medical history and increased asssociated post-operative risks.?Digital Treatment:?HT- I explained to the patient the possible etiologies of Hammertoes, including genetics/foot type/shoegear/activity level/exercise routine and the risks/benefits of all the different treatment options for their pain including: No treatment at all, Rest, Ice, New/supportive/wider/deeper Shoegear, Digital Padding/Strapping/Taping/Bracing/Gel protective sleeves, Foot/Ankle AFO Bracing, Stretching exercises, Deep Tissue Massage, Arch support/shoe inserts with splay metatarsal padding, and Custom orthoses. I insisted that any digital devices be removed daily and not worn overnight for safety. The patient is to carefully examine the toes daily for any skin irritation while using any splinting or padding device. The advantages and disadvantages of each option were discussed and the patients questions re: shoegear, padding, custom vs prefabricated inserts, activity level, and consistency in home treatment regimens for optimal success were answered to their verbally confirmed satisfaction.?Shoe Gear Counseling:?SHOE Rx - The patient was counseled in great detail on their muscoloskeletal foot and toe deformities which coincided with the dermatological presentations visualized on exam. We discussed how their deformities put the integrity of their feet at risk for potential pedal complications which makes the accomidative diabetic shoes and cutomizable inserts medically necessary. We discussed the different shoe and insert treatment types and options, as well as the important advantages for adhering to regularly wearing these accomidative devices daily. The patient was made aware of the fact that a failure to abide by these recommedations may be deleterious to their foot health as they are able to prevent many pedal complications such as skin irritation, skin ulceration, infection, and even loss of toe/foot/leg/or life. Time was also spent with the patient dispensing and discussing proper diabetic footcare techniques including daily skin moisturization, daily foot inspection for any interruption in skin integrity including open lesions, or sign of infection such as redness/malodor/drainage/swelling. Also discussed and recommended were procedures regarding daily shoe inspection for the presence of internal foreign bodies as well as any visualized irregular shoe or insert wear. Patient questions re: shoes, inserts, and self foot inspections were answered to their satisfaction as the patient verbally confirmed a full understanding of the above information. A Rx for Extra Depth Orthopedic Shoes with 3 pair of custom heat-molded inserts was dispensed.? ??Screening/Special Tests:?Fall Risk?Screening:?No falls in the past year ?FALLS: Screening for Future Fall Risk?Have you had any falls with injury in the past year??No * Follow Up:?prn * Images: * Sign off status: Completed true * Provider:?Ever Mata DPM Date:?2024 Generated for Lucinda brothers/Kady/Jeanette on:?06/30/2024 03:18 PM EDT History and Physical Notes * HPI (History of Present Illness) Category Sub-Category Detail Notes Category Not es Toe pain Location: B/L feet Duration: several years Course: worse Aggravated by: shoes, any pressure Treatments: change in shoes At Risk footcare Pt States Last PCP Visit: Date: 4 Examination Category Sub-Category Detail Notes Category Not es Neurological SENSORY: Neurological exa m reveals intact sensorium, pain sensation normal, vibration sensation intact, pinprick sensation is normal in the lower extremities, 5.07 monofilament test performed at plantar aspects of 5 varied sites per foot shows sensation, normal, B/L, Pt denies, anesthesia, burning, paresthesia, tingling, B/L Dermatologic SKIN FINDINGS: Skin exam reveal s Keratotic lesion(s) located at, SUB MTH (s), 5, Right, Plantar Heel(s), B/L Orthopedic FOOTWEAR EVALUATION: worn, non-s upportive, shoe gear properties exacerbate patient's foot/toe deformity DIGITAL DEFORMITIES: Digital contracture , PIPJ, 2-5 B/L, incompl-reducible to push-up test, no over, nor underlapping, there is evidence of shoe producing skin irritation MUSCLE STRENGTH: 5/5 all groups in a symmetrical fashion, B/L General Examination GENERAL APPEARANCE: Reveals a pleasant, alert, well nourished, well-developed, well hydrated individual, who demonstrates proper attention to hygiene/body habitus, and is in no acute distress, Pt serves as own historian for office visit today FOOT EXAM: Lower Extremity Neurological Exa m performed:: Yes Date Visual exam of foot performed:: Yes Date: 06/24/2024 ORIENTED: person, place, and t [place] Footwear Evaluation Footwear Evaluation performe d:: Yes Ophthalmology Referral DIABETES EYE EXAM Procedure Perform ed:: Yes ?Date of Exam Performed: 05/18/2024 Diabetic Retinopathy Screening:: Yes Retinal Screening Performed:: Yes Findings of Diabetic Eye Exam:: no retin opathy Vascular DP PULSES (B): 0/4, B/L PT PULSES (B): 0/4, B/L CAPILLARY FILL TIME: delayed, all digits , B/L TEMPERTURE GRADIENT (C): decreased, cool to cool, proximal to distal, B/L TROPHIC CONDITION-TEXTURE/ELASTICITY/TURGOR/HAIR GROWTH (B): decreased, fragile, thin, shiny, with sp arse to absent hair growth, B/L EDEMA (C): 2/4, pitting, withou t aching pain, Leg(s), Ankle(s), B/L CLAUDICATION (C): denies, B/L REST PAIN: denies, B/L PIGMENTATION: rubrous, B/L PARESTHESIA (C): absent, B/L BURNING (C): absent, B/L Nails NAILS are: Elongated, overg rown, dystrophic, lytic, greater than 3mm thick, discolored and friable with crumbly malodorous subungual debris, with pain on palpation, TA, T1, T2, T4, T5, T6, T8, T9, all other nails not described with characteristics as possessing mycosis are elongated, overgrown, and dystrophic
--- OUTSIDE RECORDS SUMMARY | 2024-06-30 15:18 | XMS_ITS ---
Author Organization [facility] Address [address] [place] [address] Care Team Providers Care Quality Assurance Inspector Name Role Phone Marin SHAIKH, Bal Primary Care Provider Ever Montano Unavailable [phone] REASON FOR VISIT ON Encounters Encounter Location Date Provider Diagnosis [address] [address] 04/14/2024 Ever Mata Plan Of Treatment Next Appt Details Provider Name:Ever Mata , 09/30/2024 01:00:00 PM, [address] [place] [address], [address], Progress Notes * Susy KC ADOB: (73 yo F)Acc No.[id number]:04/14/2024 Patient:?Susy KC :1950???Age:73 Y???Sex:Female Address:[address] [facility], [address] , [place] [address] * true * Date:? Generated for Lucinda brothers/Kady/eTransmitting on:?06/30/2024 03:17 PM EDT
== END 2024-06-30 13:56 | disposition home or self-care (01) ==
PROVIDERS: PCP Family Medicine; Visit Provider Internal Medicine Endocrinology, Diabetes & Metabolism
DX: M81.0 Age-related osteoporosis without current pathological fracture (principal)
CPT/HCPCS: 99213

== ENCOUNTER → 2024-06-30 13:18 | Outpatient (BNVA) | payer MEDICARE, SELFPAY | PROVIDERS: PCP Family Medicine; Visit Provider Internal Medicine Endocrinology, Diabetes & Metabolism | DX: M81.0 Age-related osteoporosis without current pathological fracture (principal) | CPT/HCPCS: 99212 ==

== ENCOUNTER 2024-07-14 13:41 | Outpatient (AMB) | payer MEDICARE, SELFPAY ==
--- NOTE | 2024-07-14 14:08 | AM.OFFVISNUR ---
Intake Visit Reasons: Evenity #5 Allergies penicillin V Allergy (Unknown, Verified 06/30/24 13:27) Unknown empagliflozin [From Jardiance] Adverse Reaction (Intermediate, Verified 06/30/24 13:27) uti Office Meds romosozumab-aqqg 210 mg/2.34 mL(105 mg/1.17 mL x2)subcutaneous syringe Performing Provider: Henry Lynch MD Performing Location: [facility] Endocrinology Administered by: Suzan Melendez RN on 07/14/24 14:08 Dose Route Admin Location Dispensed Lot Number Expiration Date NDC Oven Technician 210 mg subcut bilateral upper arms 2.34 mL [id number] 06/16/25 35946-623-30 AMGEN Comments: Consent form signed by patient. Pt tolerated injection well. Pt denies any problems with previous injections. Assessment & Plan Assessment & Plan Orders: Orders AMB Romosozumab Injection Patient Supplied Today M81.0 - Age-related osteoporosis without current pathological fracture Medications: New romosozumab-aqqg 210 mg (2.34 mL) subcut ONCE 2.34 mL 0RF M81.0 - Age-related osteoporosis without current pathological fracture Coding
--- OUTSIDE RECORDS SUMMARY | 2024-07-14 16:23 | XMS_ITS ---
Author Organization [facility] Address [address] [place] [address] Care Team Providers Care Events Solutions Consultant Name Role Phone Marin SHAIKH, Bal Primary Care Provider Ever Montano Unavailable [phone] REASON FOR VISIT ON Encounters Encounter Location Date Provider Diagnosis [address] [address] 04/14/2024 Ever Mata Plan Of Treatment Next Appt Details Provider Name:Ever aMta , 09/30/2024 01:00:00 PM, [address] [place] [address], [phone], Progress Notes * Susy KC ADOB: (73 yo F)Acc No.[id number]:04/14/2024 Patient:?Susy KC :1950???Age:73 Y???Sex:Female Address:[address] [facility], [address] , [place] [address] * true * Date:? Generated for Lucinda brothers/Kady/eTransmitting on:?07/14/2024 04:23 PM EDT
--- OUTSIDE RECORDS SUMMARY | 2024-07-14 16:24 | XMS_ITS | Patient Health Record ---
Author Organization [facility] ariella [place] Address [address] [place] [address] Care Team Providers Care Border Patrol Agent Name Role Phone Marin SHAIKH, Bal Primary Care Provider Ever Montano Unavailable [phone] Allergies Allergen (clinical drug ingredient) Drug/Non Drug [...] Problem Acquired hammer toe of right foot (2568668371187 105) Other hammer toe(s) (acquired), right foot (M20.41) Active confirmed Problem Type 2 diabetes mellitus with peripheral angiopathy (682024631) Type 2 diabetes mellitus with diabetic peripheral angiopathy without gangrene (E11.51) Active confirmed Q7(A), Q8(2B), Q9(1B,2C) Problem Acquired hammer toe of left foot (2815158473680 103) Other hammer toe(s) (acquired), left foot (M20.42) Active confirmed Vital Signs Blood pressure diastolic 70 mm Hg 06/24/2024 Height 4 ft 11 in in 06/24/2024 Blood pressure systolic 130 mm Hg 06/24/2024 Weight 98 lbs 06/24/2024 BMI 19.79 kg/m2 06/24/2024 Procedures Procedure Date Ordered Date Performed Result Body Sit e 94358-XHRKPFI NAIL, 6 OR MORE 06/24/2024 N/A 50967-SSZA SKIN LESIONS, 2 TO 4 06/24/2024 N/A Encounters Encounter Location Date Provider Diagnosis [facility] [place] [address] [place] [address] 06/24/2024 Ever Mata Type 2 diabetes mellitus with diabetic peripheral angiopathy without gangrene E11.51 ; Tinea unguium B35.1 ; Pain in right toe(s) M79.674 ; Pain in left toe(s) M79.675 ; Other hammer toe(s) (acquired), left foot M20.42 and Other hammer toe(s) (acquired), right foot M20.[address] [facility] [address] 04/14/2024 Ever Mata [facility] [address] 07/14/2024 Ever Mata Assessments Encounter Date Diagnosis (ICD [...] Treatment Pending Test Test Name Order Date 07087-AMPQOBA NAIL, 6 OR MORE 08/09/2012 48891-MCTKMDD NAIL, 6 OR MORE 12/31/2012 49182-NFVAZOK NAIL, 6 OR MORE 10/17/2016 21265-BIIDJDP NAIL, 6 OR MORE 11/27/2017 80959-JLSTEGB NAIL, 6 OR MORE 02/26/2018 88077-NTIYQRA NAIL, 6 OR MORE 05/28/2018 68613-KWRPCBW NAIL, 6 OR MORE 08/30/2018 68136-IONDJUX NAIL, 6 OR MORE 12/06/2018 05412-TTDJIKB NAIL, 6 OR MORE 08/28/2017 30443-HZJGHTX NAIL, 6 OR MORE 04/08/2019 66633-SFEJXQA NAIL, 6 OR MORE 06/24/2024 40734-Cslulohv Plate 11/27/2017 96643-Onxnoekk Plate 12/06/2018 65918-Dpiwdznz Plate 08/28/2017 85348-Gmuocgyx Plate 08/09/2012 26321-Umwgnqru Plate 12/31/2012 26653-Hpqttmmc Plate 10/17/2016 00844-Hjlucbpe Plate Each Additional 56472- Debride <25 sq cm 12/31/2012 60232-ZTUL SKIN LESIONS, 2 TO 4 06/25/19 25 Next Appt Details Provider Name:Ever Mata , 09/30/2024 01:00:00 PM, [address] [facility], [place], [address], Insurance Providers Payer Name Payer Address Payer Phone Subscriber Number Group Number Insured Name Patient Relationship to Insured Coverage Start Date Coverage End Date Medicare National Govt Svcs Inc [address] [place] [address] [id number] PeloElvira cadescilla Self - patient is the insured 4 [employer] Blue Shield [address] [place] [address] [phone] [id number] 2 Peloquin, Susy Self - patient is the insured Medical (General) History Medical History History ICD Code Arthritis cataracts diabetic osteoporosis cholesterol Glaucoma Measles Mumps Chicken pox Surgical History Surgery Date(Month/Year) ear surgery cataract surgery 10/2012 Hospitalization History Reason Date(Month/Year) Patient had iv yesterday for osteoporosi s. 07/09/2012
--- OUTSIDE RECORDS SUMMARY | 2024-07-14 16:24 | XMS_ITS ---
Author Organization [facility] Address [address] [place] [address] Care Team Providers Care Deck Engine Operator Name Role Phone Marin SHAIKH, Bal Primary Care Provider UnaEver Soliz Unavailable [phone] REASON FOR VISIT [facility] Encounters Encounter Location Date Provider Diagnosis [facility] [address] 07/14/2024 Ever Mata Plan Of Treatment Next Appt Details Provider Name:Ever Mata , 09/30/2024 01:00:00 PM, [address] [place] [address], [phone], Progress Notes * Susy KC ADOB: (73 yo F)Acc No.[id number]:07/14/2024 Patient:?Susy KC :1950???Age:73 Y???Sex:Female Address:[address] [facility], [address] , [place] [address] * true * Date:? Generated for Menai deneen/Kady/eTransmitting on:?07/14/2024 04:23 PM EDT
--- OUTSIDE RECORDS SUMMARY | 2024-07-14 16:24 | XMS_ITS ---
Author Organization [facility] ariella [place] Address [address] [place] [address] Care Team Providers Care Hoister Name Role Phone Marin SHAIKH, Bal Primary Care Provider Ever Montano Unavailable [phone] Allergies Allergen (clinical drug ingredient) Drug/Non Drug [...] Type 2 diabetes mellitus with peripheral angiopathy (044562837) Type 2 diabetes mellitus with diabetic peripheral angiopathy without gangrene (E11.51) Active confirmed Q7(A), Q8(2B), Q9(1B,2C) Problem Acquired hammer toe of right foot (2394597054633 105) Other hammer toe(s) (acquired), right foot (M20.41) Active confirmed Problem Acquired hammer toe of left foot (4679719057755 103) Other hammer toe(s) (acquired), left foot (M20.42) Active confirmed Vital Signs Height 4 ft 11 in in 06/24/2024 Weight 98 lbs 06/24/2024 BMI 19.79 kg/m2 06/24/2024 Blood pressure systolic 130 mm Hg 06/25/19 25 Blood pressure diastolic 70 mm Hg 025 Procedures Procedure Date Ordered Date Performed Result Body Sit e 05350-LBMXBFZ NAIL, 6 OR MORE 06/24/2024 N/A 22052-KJLR SKIN LESIONS, 2 TO 4 06/24/2024 N/A Encounters Encounter Location Date Provider Diagnosis [facility] [place] [address] [place] [address] 06/24/2024 Ever Mata Type 2 diabetes mellitus [...] INSTRUCTIONS.pdf) Pending Test Test Name Order Date 36799-LHGDRTO NAIL, 6 OR MORE 06/24/2024 12866-IKNQ SKIN LESIONS, 2 TO 4 06/25/19 25 Next Appt Details Follow Up: prn, Reason: Provider Name:Ever Mata , 09/30/2024 01:00:00 PM, [address] [place] [address], [place], [address], Procedure Notes * Category Sub-Category [...] use of a nail nipper and/or dremel-type grinder operator external tool, to a more viable healthy nail plate [...] to maintain effectiveness in symptomatic relief - 53653 Keratoma Treatment Parring or Cutting o f [...] instrumentation by the physician of record - 00429, Q8 Progress Notes * Susy KC ADOB: (73 yo F)Acc No.[id number]:06/24/2024 Progress Notes Patient:?Susy KC A Provider:?Ever Mata DPM :1950???Age:73 Y???Sex:Female D ate:06/24/2024 Address:[address] [place], [place] [id number] Pcp:Bal Funes MD Subjective: * Chief Complaints: [...] mellitus with diabetic peripheral angiopathy without gangrene?Procedure: 32166-VFUA SKIN LESIONS, 2 TO 4 3.?Tinea unguium?Procedure: 95716-UJGWFYR NAIL, 6 OR MORE * Procedures:?Debride Nail [...] use of a nail nipper and/or dremel-type grinder operator external tool, to a more viable healthy nail plate [...] to maintain effectiveness in symptomatic relief - 29221.?Keratoma Treatment:?Parring or Cutting of Benign Hyperkeratotic Lesion(s)?(-56) [...] instrumentation by the physician of record - 01015, Q8.? * Procedure Codes:?82988 DEBRI DE NAIL, 6 OR MORE, Modifiers: XS 26191 TRIM SKIN LESIONS, 2 TO 4, Modifiers: [...] Mata DPM Date:?2024 Generated for Lucinda brothers/Kady/Jeanette on:?07/14/2024 04:23 PM EDT History and Physical Notes * [...]
== END 2024-07-14 14:26 | disposition home or self-care (01) ==
LOC: HO.ENCR 13:42
PROVIDERS: PCP Family Medicine; Visit Provider Internal Medicine Endocrinology, Diabetes & Metabolism
DX: M81.0 Age-related osteoporosis without current pathological fracture (principal)

== ENCOUNTER → 2024-07-14 13:41 | Outpatient (BNVA) | payer MEDICARE, SELFPAY | PROVIDERS: PCP Family Medicine; Visit Provider Internal Medicine Endocrinology, Diabetes & Metabolism | DX: M81.0 Age-related osteoporosis without current pathological fracture (principal) | CPT/HCPCS: 96372; J3111 ==

== ENCOUNTER 2024-07-25 08:06 | Outpatient (REF) | payer MEDICARE, SELFPAY ==
--- NOTE | ~2024-07-25 | MM_ITS ---
EXAMINATION: MM DIAGNOSTIC DIGITAL BREAST TOMOSYNTHESIS, BILATERAL Bilateral Limited ultrasound. CLINICAL INFORMATION: Call back from screening for bilateral asymmetries. COMPARISON: Mammography: Comparison is made with relevant prior exams. TECHNIQUE: Digital breast mammography with tomosynthesis is performed in both the craniocaudal and mediolateral oblique views along with computer-aided detection (CAD). FINDINGS: The breasts are heterogeneously dense, which may obscure small masses (ACR BI-RADS breast composition Category c). Left: The previously seen asymmetry in the lateral left breast on CC view posterior depth does not persist on additional imaging projections and likely represented overlapping breast tissue. No suspicious calcifications or other abnormal findings. Targeted color Doppler ultrasound scanning in the left breast from 12-6 o'clock demonstrates normal fibronodular breast tissue. Right: Asymmetry in the superior right breast posterior depth on MLO view partially effaces on additional imaging projections similar-appearing dating back to 2020. No suspicious calcifications or other abnormal findings. Targeted color Doppler ultrasound scanning in the right breast demonstrates a hypoechoic oval circumscribed solid mass versus complicated cyst at 9:00 6 cm from nipple measuring 5 x 4 x 4 mm. Otherwise scanning in the superior and lateral right breast from 6-12 o'clock demonstrates normal fibronodular breast tissue. Results are provided to the patient at time of visit by the technologist. MM/MM tomosynthesis added view BI IMPRESSION: Left: Negative. Right: Solid mass versus complicated cyst in the right breast at 9:00 6 cm from the nipple. Recommend 6 month follow-up ultrasound for further evaluation of stability. Recommend 6 month follow-up right breast mammogram for further evaluation of stability asymmetry superior right breast posterior depth on MLO view. ASSESSMENT: BI-RADS BI-RADS 3 - Probably benign finding(s) - 6 month follow-up suggested RECOMMENDATION: 6 Month F/U This patient's information was entered into a reminder system with a target due date for their next mammogram. Electronically signed by: Denia Coronado DO 07/25/2024 10:46 AM EDT
--- OUTSIDE RECORDS SUMMARY | 2024-07-25 08:10 | XMS_ITS ---
Author Organization [facility] Address [address] [place] [address] Care Team Providers Care Tnt Line Supervisor Name Role Phone Marin SHAIKH, Bal Primary Care Provider UnaEevr Soliz Unavailable [phone] REASON FOR VISIT ON Encounters Encounter Location Date Provider Diagnosis [address] [address] 04/14/2024 Ever Mata Plan Of Treatment Next Appt Details Provider Name:Ever Mata , 09/30/2024 01:00:00 PM, [address] [place] [address], [address], Progress Notes * Susy KC ADOB: (73 yo F)Acc No.[id number]:04/14/2024 Patient:?Susy KC :1950???Age:73 Y???Sex:Female Address:[address] [facility], [address] , [place] [address] * true * Date:? Generated for Lucinda brothers/Kady/eTransmitting on:?07/25/2024 08:10 AM EDT
--- OUTSIDE RECORDS SUMMARY | 2024-07-25 08:10 | XMS_ITS ---
Author Organization [facility] Address [address] [place] [address] Care Team Providers Care Wire Coater Name Role Phone Marin SHAIKH, Bal Primary Care Provider UnaEver Soliz Unavailable [phone] REASON FOR VISIT [facility] Encounters Encounter Location Date Provider Diagnosis [facility] [address] 07/14/2024 Ever Mata Plan Of Treatment Next Appt Details Provider Name:Ever Mata , 09/30/2024 01:00:00 PM, [address] [place] [address], [address], Progress Notes * Susy KC ADOB: (73 yo F)Acc No.[id number]:07/14/2024 Patient:?Susy KC :1950???Age:73 Y???Sex:Female Address:[address] [facility], [address] , [place] [address] * true * Date:? Generated for Lucinda brothers/Kady/eTransmitting on:?07/25/2024 08:10 AM EDT
--- OUTSIDE RECORDS SUMMARY | 2024-07-25 08:11 | XMS_ITS | Patient Health Record ---
Author Organization [facility] Address [address] [place] [address] Care Team Providers Care Smoking Pipe Driller And Threader Name Role Phone Lemuel LUGO Mary Jesus Primary Care Provider Un available Ruben Valdes Jr Unavailable [phone] Allergies Allergen (clinical drug ingredient) Drug/Non [...] Problem Status W/U Status Risk Notes Problem 631884032 Colon cancer screening (Z12.11) Active confirmed Problem 986146050 Long-term use of aspirin therapy (Z79.82) Active confirmed Problem 360090756 FH: colon cancer (Z80.0) Active confirmed Plan Of Treatment Future Test Test Name Order Date COLONOSCOPY 07/16/2014 COLONOSCOPY 11/30/2021 Insurance Providers Payer Name Payer Address Payer Phone Subscriber Number Group Number Insured Name Patient Relationship to Insured Coverage Start Date Coverage End Date MEDICARE OF [place] [address] [place] [address] [id number] ARACELI KC Self - patient is the insured MEDEX ATTN CLAIMS [address] [place] [address] [id number] 2 ARACELI KC Self - patient is the insured Medical (General) History Medical History History ICD Code Colonoscopy 02/05/15, normal, five-year followup for family history Glaucoma diabetes mellitus elevated cholesterol Osteoporosis Anemia Ptosis Surgical History Surgery Date(Month/Year) ear surgery detached retina cataract-lens implants
--- OUTSIDE RECORDS SUMMARY | 2024-07-25 08:11 | XMS_ITS | Patient Health Record ---
Author Organization [facility] ariella [place] Address [address] [place] [address] Care Team Providers Care Geotechnical Engineer Name Role Phone Marin SHAIKH, Bal Primary Care Provider Ever Montano Unavailable [phone] Allergies Allergen (clinical drug ingredient) Drug/Non Drug [...] Problem Acquired hammer toe of right foot (3617875995011 105) Other hammer toe(s) (acquired), right foot (M20.41) Active confirmed Problem Type 2 diabetes mellitus with peripheral angiopathy (413969743) Type 2 diabetes mellitus with diabetic peripheral angiopathy without gangrene (E11.51) Active confirmed Q7(A), Q8(2B), Q9(1B,2C) Problem Acquired hammer toe of left foot (3953931331578 103) Other hammer toe(s) (acquired), left foot (M20.42) Active confirmed Vital Signs Blood pressure diastolic 70 mm Hg 06/24/2024 Height 4 ft 11 in in 06/24/2024 Blood pressure systolic 130 mm Hg 06/24/2024 Weight 98 lbs 06/24/2024 BMI 19.79 kg/m2 06/24/2024 Procedures Procedure Date Ordered Date Performed Result Body Sit e 44557-XXENHHB NAIL, 6 OR MORE 06/24/2024 N/A 03240-ZJGE SKIN LESIONS, 2 TO 4 06/24/2024 N/A Encounters Encounter Location Date Provider Diagnosis [facility] [place] [address] [place] [address] 06/24/2024 Ever Mata Type 2 diabetes mellitus with diabetic peripheral angiopathy without gangrene E11.51 ; Tinea unguium B35.1 ; Pain in right toe(s) M79.674 ; Pain in left toe(s) M79.675 ; Other hammer toe(s) (acquired), left foot M20.42 and Other hammer toe(s) (acquired), right foot M20.[address] [facility] [address] 04/14/2024 Ever Mata [facility] [address] 07/14/2024 Ever Mata Assessments Encounter Date Diagnosis [...] Treatment Pending Test Test Name Order Date 38425-WCACESF NAIL, 6 OR MORE 08/09/2012 10189-TFUPNCT NAIL, 6 OR MORE 12/31/2012 95215-KWGMTOM NAIL, 6 OR MORE 10/17/2016 93844-KVIIRNP NAIL, 6 OR MORE 11/27/2017 87434-YJSJJNZ NAIL, 6 OR MORE 02/26/2018 30791-LCVPVOV NAIL, 6 OR MORE 05/28/2018 31586-LLTNVKJ NAIL, 6 OR MORE 08/30/2018 49567-VIZLIFI NAIL, 6 OR MORE 12/06/2018 95209-QJBVHLT NAIL, 6 OR MORE 08/28/2017 95250-VFDYSPP NAIL, 6 OR MORE 04/08/2019 15484-FMRJLQV NAIL, 6 OR MORE 06/24/2024 96614-Inkdzipx Plate 11/27/2017 04856-Swkrgmbd Plate 12/06/2018 34947-Zmgreynj Plate 08/28/2017 33543-Tgnzfgmj Plate 08/09/2012 20641-Tyxfkanu Plate 12/31/2012 92074-Rerbazhn Plate 10/17/2016 86373-Kjefxnmq Plate Each Additional 71778- Debride <25 sq cm 12/31/2012 22908-VDXO SKIN LESIONS, 2 TO 4 06/25/19 25 Next Appt Details Provider Name:Ever Mata , 09/30/2024 01:00:00 PM, [address] [facility], [place], [address], Insurance Providers Payer Name Payer Address Payer Phone Subscriber Number Group Number Insured Name Patient Relationship to Insured Coverage Start Date Coverage End Date Medicare National Govt Svcs Inc [address] [facility] [address] [id number] PeloElivra cadescilla Self - patient is the insured 4 [employer] Blue Shield [address] [place] [address] [phone] [id number] 2 Peloquin, Susy Self - patient is the insured Medical (General) History Medical History History ICD Code Arthritis cataracts diabetic osteoporosis cholesterol Glaucoma Measles Mumps Chicken pox Surgical History Surgery Date(Month/Year) ear surgery cataract surgery 10/2012 Hospitalization History Reason Date(Month/Year) Patient had iv yesterday for osteoporosi s. 07/09/2012
--- OUTSIDE RECORDS SUMMARY | 2024-07-25 08:11 | XMS_ITS ---
Author Organization [facility] ariella [place] Address [address] [place] [address] Care Team Providers Care Sausage Stuffer Name Role Phone Marin SHAIKH, Bal Primary Care Provider Ever Montano Unavailable [phone] Allergies Allergen (clinical drug ingredient) Drug/Non Drug [...] Type 2 diabetes mellitus with peripheral angiopathy (108500885) Type 2 diabetes mellitus with diabetic peripheral angiopathy without gangrene (E11.51) Active confirmed Q7(A), Q8(2B), Q9(1B,2C) Problem Acquired hammer toe of right foot (0344045625719 105) Other hammer toe(s) (acquired), right foot (M20.41) Active confirmed Problem Acquired hammer toe of left foot (8944205754756 103) Other hammer toe(s) (acquired), left foot (M20.42) Active confirmed Vital Signs Height 4 ft 11 in in 06/24/2024 Weight 98 lbs 06/24/2024 BMI 19.79 kg/m2 06/24/2024 Blood pressure systolic 130 mm Hg 06/25/19 25 Blood pressure diastolic 70 mm Hg 025 Procedures Procedure Date Ordered Date Performed Result Body Sit e 83142-BEFHVJA NAIL, 6 OR MORE 06/24/2024 N/A 10732-SWGU SKIN LESIONS, 2 TO 4 06/24/2024 N/A Encounters Encounter Location Date Provider Diagnosis [facility] [place] [address] [place] [address] 06/24/2024 Ever Mata Type 2 diabetes mellitus [...] INSTRUCTIONS.pdf) Pending Test Test Name Order Date 13025-TRTSFEP NAIL, 6 OR MORE 06/24/2024 72050-BQEW SKIN LESIONS, 2 TO 4 06/25/19 25 Next Appt Details Follow Up: prn, Reason: Provider Name:Ever Mata , 09/30/2024 01:00:00 PM, [address] [place] [address], [place], [address], Procedure Notes * Category Sub-Category [...] use of a nail nipper and/or dremel-type chisel grinder, to a more viable healthy nail [...] to maintain effectiveness in symptomatic relief - 43966 Keratoma Treatment Parring or Cutting o f [...] instrumentation by the physician of record - 38877, Q8 Progress Notes * Susy KC ADOB: (73 yo F)Acc No.[id number]:06/24/2024 Progress Notes Patient:?Susy KC A Provider:?Ever Mata DPM :1950???Age:73 Y???Sex:Female D ate:06/24/2024 Address:[address] [place], [place] [phone] Pcp:Bal Funes MD Subjective: * Chief Complaints: [...] mellitus with diabetic peripheral angiopathy without gangrene?Procedure: 89318-VVRF SKIN LESIONS, 2 TO 4 3.?Tinea unguium?Procedure: 12073-BATLOZQ NAIL, 6 OR MORE * Procedures:?Debride Nail [...] use of a nail nipper and/or dremel-type chisel grinder, to a more viable healthy nail [...] to maintain effectiveness in symptomatic relief - 41266.?Keratoma Treatment:?Parring or Cutting of Benign Hyperkeratotic Lesion(s)?(-56) [...] instrumentation by the physician of record - 38262, Q8.? * Procedure Codes:?85116 DEBRI DE NAIL, 6 OR MORE, Modifiers: XS 79518 TRIM SKIN LESIONS, 2 TO 4, Modifiers: [...] Mata DPM Date:?2024 Generated for Lucinda brothers/Kady/Jeanette on:?07/25/2024 08:10 AM EDT History and Physical Notes * HPI [...]
== END 2024-07-25 08:07 | disposition home or self-care (01) ==
LOC: HO.MAMMO 08:06
PROVIDERS: PCP Family Medicine; Visit Provider Family Medicine
DX: N64.89 Other specified disorders of breast (principal)
CPT/HCPCS: 76642; 77062; 77066

== ENCOUNTER → 2024-07-25 09:30 | Outpatient (BNV) | payer MEDICARE, SELFPAY | PROVIDERS: PCP Family Medicine; Visit Provider Internal Medicine | DX: R92.8 Other abnormal and inconclusive findings on diagnostic imaging of breast (principal) | CPT/HCPCS: 76642; 77066; G0279 ==

== ENCOUNTER 2024-08-12 13:02 | Outpatient (AMB) | payer MEDICARE, SELFPAY ==
--- NOTE | 2024-08-12 08:01 | A.OFFVIS_ITS ---
Vital Signs 08/12/24 13:33 Height 4 ft 11 in Weight 95 lb 14.417 oz BMI 19.4 BP 106/48 L Blood Pressure Location Rt brachial Position Sitting Pulse 72 Pulse Source Pulse Oximeter Pulse Oximetry (%) 99 Oxygen Delivery Method Room Air Intake Visit Reasons: DM /evenity #6 Intake Note: Patient presents today for a follow-up on Type 2 Diabetes Mellitus: Evenity #6 Last Diabetic eye exam was on: 03/20/2024 Last Podiatry exam was on: Does not see a Pathology Collector Most recent HbA1c: 8.1%, 05/22/2024 Random Glucose- 224 mg/dL, Today Practice Or Student Teacher Required: No Accompanied by: Self / Same As Patient Allergies penicillin V Allergy (Unknown, Verified 08/12/24 13:29) Unknown empagliflozin [From Jardiance] Adverse Reaction (Intermediate, Verified 08/12/24 13:29) uti HPI Comments Details: 74 YO female who is seen for T2DM. Last seen 05/22/24. Hgb A1C: 05/22/24 8.1 %. 10/2023 7.8%. She called last week and reported that her blood sugars have been running higher and requested going on a ZEFRstyle Susan. I advised her since she is only on oral agents this is generally not covered and she agreed to a 2 week trial in office. She is seen by Dr. Lynch for osteoporosis and was last seen for this 06/30/24 in his now on [facility]. She is followed by Dr. Lynch for osteoporosis. Initially diagnosed with T2DM in 1983. Was initially started on treatment with glipizide which was titrated to a lower dose and metformin. Jardiance was stopped in 2023 secondary to dehydration and low glucose Current regimen Janumet XR 50-1,000 twice daily Checks sugars 1-2 times per day varying test time. 130-140's in the am 200 later in the day one glucose 80 Treats lows with juice 1/4 glass. Checks sugar after to ensure it is rising. Treats according to rule of 15's. Family history of T2DM in brother. Has mild retinopathy. Has eyes checked yearly, last eye exam 09/2023. Has macular degeneration Denies neuropathy, last foot exam today, sees podiatry on occasion (Dr. Cali) able to do self care, wears shoes, slippers Positive nephropathy, not on [SHELLEY/ARB]. Microalbumin 12 on 02/08 eGFR 59 04/03/24 greater than 6 Has HLD, on statin. Last LDL 61 as measured on 03/01/2024. Denies CAD, PVD, CVA Denies chest pain, dyspnea or symptoms of claudication She recently sold her family home of 75 years and lost her cat. She is in elderly housing apt and is happy with this and we will be doing a container garden. She has 2 brothers and some niece's in the area. She is going to give up driving due to eye site Diet: balanced meal plan [Had] diabetes education Once several years ago, seen twice [facility] Medical History Anemia Glaucoma Vitamin D deficiency Dyslipidemia Osteoporosis Diabetic nephropathy associated with type 2 diabetes mellitus Diabetes type 2, uncontrolled Surgical History Hx of eye surgery Hx of cataract extraction H/O colonoscopy History of ear surgery Family History Father Heart disease Mother CHF (congestive heart failure) Social History Household Members: None Alcohol intake: never Patient Tobacco Use Status: Never used Tobacco service: No Current occupational status: retired Physical Exam Vital Signs: Last Vital Signs Pulse 72 08/12/24 13:33 BP 106/48 L 08/12/24 13:33 Pulse Ox 99 08/12/24 13:33 Oxygen Delivery Method Room Air 08/12/24 13:33 BMI result Body Mass Index 19.4 Const Other: Absence of Cushingoid features. Absence of acromegalic features. Neck exam reveals nl size thyroid about 15 gms. No thyroid nodules palpable. Heart S1 S2, Reg R/R. Skin exam reveals absence of vitiligo or acanthosis nigricans. no edema Office Meds romosozumab-aqqg 210 mg/2.34 mL(105 mg/1.17 mL x2)subcutaneous syringe Performing Provider: Cathy Chapin NP Performing Location: [facility] [place] Administered by: Becca Magallanes RN on 08/12/24 14:47 Dose Route Admin Location Dispensed Lot Number Expiration Date [place] Remote Encoding Operations Supervisor 210 mg subcut bilateral upper arms 2.34 mL [id number] 07/16/26 52055-316-35 AMGEN Results Reviewed Results Reviewed: Laboratory Last Values Glucose (Clinic) 224 mg/dL (60-115) H 08/12/24 14:05 Assessment & Plan Assessment & Plan (1) Diabetes type 2, uncontrolled: Code(s): E11.65 - Type 2 diabetes mellitus with hyperglycemia Category: Medical Plan: 74-year-old type 2 diabetic increasing A1c. She has agreed to a glucose sensor for 15 day. Jaya was not in sensor placed. Month she will call me in 7 days and we will give me her 7 day average. If this is above target, we will add an additional oral agent to see if that gets her numbers in better range in the 70 days. We reviewed basic was of the glucose sensor including colors coating, purpose of arrows, confirm with glucometer if low glucometer icon appears on screen she was shown how to review history Orders: Orders AMB Romosozumab Injection Patient Supplied Today M81.0 - Age-related osteoporosis without current pathological fracture Coding Level of Care Code Est Pt Level 3 (50696) Complex EM visit Add On G2211 Diagnoses Diabetes type 2, uncontrolled E11.65 Time Spent (min) 30 Comment Time spent reviewing labs/provider notes, face to face, chart doc
--- OUTSIDE RECORDS SUMMARY | 2024-08-12 13:06 | XMS_ITS ---
Author Organization [facility] Address [address] [place] [address] Care Team Providers Care Tip Mender Name Role Phone Marin SHAIKH, Bal Primary Care Provider Ever Montano Unavailable [phone] REASON FOR VISIT ON Encounters Encounter Location Date Provider Diagnosis [address] [address] 04/14/2024 Ever Mata Plan Of Treatment Next Appt Details Provider Name:Ever Mata , 09/30/2024 01:00:00 PM, [address] [place] [address], [phone], Progress Notes * Susy KC ADOB: (73 yo F)Acc No.[id number]:04/14/2024 Patient:?Susy KC :1950???Age:73 Y???Sex:Female Address:[address], [address] , [place] [address] * true * Date:? Generated for Lucinda brothers/Kady/eTransmitting on:?08/12/2024 01:06 PM EDT
[2024-08-12 13:33] VITALS: BP 106/48; PULSE 72; O2SAT 99; BMI 19.4
[2024-08-12 14:10] LABS: Glucose, Whole Blood 224 mg/dL (60-115)
== END 2024-08-12 15:20 | disposition home or self-care (01) ==
LOC: HO.ENCR 13:03
PROVIDERS: PCP Family Medicine; Visit Provider Nurse Practitioner Adult Health
DX: M81.0 Age-related osteoporosis without current pathological fracture (principal); E11.65 Type 2 diabetes mellitus with hyperglycemia
CPT/HCPCS: 99213; G2211

== ENCOUNTER → 2024-08-12 13:02 | Outpatient (BNVA) | payer MEDICARE, SELFPAY | PROVIDERS: PCP Family Medicine; Visit Provider Nurse Practitioner Adult Health | DX: E11.65 Type 2 diabetes mellitus with hyperglycemia (principal); M81.0 Age-related osteoporosis without current pathological fracture | CPT/HCPCS: 82947; 96372; 99212; J3111 ==

== ENCOUNTER 2024-08-26 13:03 | Outpatient (AMB) | payer MEDICARE, SELFPAY ==
--- NOTE | 2024-08-26 07:40 | A.OFFVIS_ITS ---
Vital Signs 08/26/24 13:10 Height 4 ft 11 in Weight 96 lb 12.527 oz BMI 19.5 BP 112/46 L Blood Pressure Location Rt brachial Position Sitting Pulse 78 Pulse Source Pulse Oximeter Pulse Oximetry (%) 95 Oxygen Delivery Method Room Air Intake Visit Reasons: T2DM Intake Note: Patient presents today for a follow-up on Type 2 Diabetes Mellitus: Last Diabetic eye exam was on: 03/20/2024 Last Podiatry exam was on: Does not see a De Alcoholizer Most recent HbA1c: 8.2%, 08/26/2024 Random Glucose- 167 mg/dL, Today Passenger Screener Required: No Accompanied by: Self / Same As Patient Allergies penicillin V Allergy (Unknown, Verified 08/26/24 13:11) Unknown empagliflozin [From Jardiance] Adverse Reaction (Intermediate, Verified 08/26/24 13:11) uti HPI Comments Details: 74 YO female who is seen for T2DM. Last seen 2 weeks ago at which time she was given a sample of freestyle Susan 3+ to use on her phone to better assess her glycemic control Hgb A1C: 08/26/24 8.2 %, 05/22/24 8.1 %. 10/2023 7.8%. She is seen by Dr. Lynch for osteoporosis and was last seen for this 06/30/24 in his now on [facility]. She is followed by Dr. Lynch for osteoporosis. Initially diagnosed with T2DM in 1983. Was initially started on treatment with glipizide which was titrated to a lower dose and metformin. Jardiance was stopped in 2023 secondary to dehydration and low glucose Current regimen Janumet XR 50-1,000 twice daily Freestyle susan sensor 3 average glucose: 180 14 day continuous glucose sensor report reviewed Glucose Management indicator 7.6 % Time CGM active 97 % TIme in ranges: 9 % very high (above 250) 32 % high (181-250) 59 % in range (70-180] 0 % low (69-55) 0 % very low (below 54) 29.2 Glucose variability (target <36%) Interpretation of CGMS ; she is having significant postprandial increases after lunch and particularly after supper Treats lows with juice 1/4 glass. Checks sugar after to ensure it is rising. Treats according to rule of 15's. Family history of T2DM in brother. Has mild retinopathy. Has eyes checked yearly, last eye exam 09/2023. Has macular degeneration Denies neuropathy, sees podiatry on occasion (Dr. Cali) able to do self care, wears shoes, slippers Positive nephropathy, not on [SHELLEY/ARB]. Microalbumin 03/01/2024 14.0 07/04/19 Has HLD, on statin. Last LDL 61 as measured on 03/01/2024 Denies CAD, PVD, CVA Denies chest pain, dyspnea or symptoms of claudication She recently sold her family home of 75 years and lost her cat. She is in elderly housing apt and is happy with this and we will be doing a container garden. She has 2 brothers and some niece's in the area. She is going to give up driving due to eye site Diet: balanced meal plan [Had] diabetes education Once several years ago, seen twice [facility] Medical History Anemia Glaucoma Vitamin D deficiency Dyslipidemia Osteoporosis Diabetic nephropathy associated with type 2 diabetes mellitus Diabetes type 2, uncontrolled Surgical History Hx of eye surgery Hx of cataract extraction H/O colonoscopy History of ear surgery Family History Father Heart disease Mother CHF (congestive heart failure) Social History Household Members: None Alcohol intake: never Patient Tobacco Use Status: Never used Tobacco service: No Current occupational status: retired Physical Exam Vital Signs: Last Vital Signs Pulse 78 08/26/24 13:10 BP 112/46 L 08/26/24 13:10 Pulse Ox 95 08/26/24 13:10 Oxygen Delivery Method Room Air 08/26/24 13:10 BMI result Body Mass Index 19.5 Const Other: Absence of Cushingoid features. Absence of acromegalic features. Neck exam reve als nl size thyroid about 15 gms. No thyroid nodules palpable. Heart S1 S2, Reg R/R. No M/R G. Skin exam reveals absence of vitiligo or acanthosis nigricans. No edema Office Procedures Glucose Monitoring Details Details: see hpi 11005 - Glucose monitoring, continuous-physician I&R Procedure code (CPT) selection complete Results AMB Hemoglobin A1c AMB Hemoglobin A1c 8.2 % Last Edit by MEME Allred on 08/26/24 13:31 Results Reviewed Results Reviewed: Laboratory Last Values Glucose (Clinic) 167 mg/dL (60-115) H 08/26/24 13:22 Hgb A1c (Clinic) 8.2 % (4.0-6.0) H 08/26/24 13:25 Assessment & Plan Assessment & Plan (1) Diabetes type 2, uncontrolled: Code(s): E11.65 - Type 2 diabetes mellitus with hyperglycemia Category: Medical Plan: 74-year-old type 2 diabetic with increasing A1c of 8.2%. On glucose sensor for 14 days she had significant postprandial increases after lunch and supper. Continue Janumet Add Lantus 6 units. Would recommend that she takes this at lunchtime as her highest readings are postprandial lunch and supper. I would also recommend that she goes on a freestyle Susan 3+ glucose sensor using her phone. I would recommend she goes on a sensor given her advanced age, fragility and osteoporosis. If she had a low sugar and fell this could lead to a hip fracture. She has worn the sensor for a 2 week trial but we will still need training. She will schedule an appointment with the brick or block maker for freestyle 3+ training in insulin pen. We will refer patient to reliable diabetes for 3 freestyle 3+ sensors The patient had an opportunity to ask questions regarding treatment plan. The patient expressed understanding and agreement with the above treatment plan. The patient is aware they should contact our office by phone for worsening glucose readings or for any low blood sugars which may warrant a change in diabetes medication. Compliance is encouraged with medications and any followup testing/consults which may have been ordered. Orders: Orders AMB Hemoglobin A1c Today E11.65 - Type 2 diabetes mellitus with hyperglycemia AMB Glucose Monitoring Today E11.65 - Type 2 diabetes mellitus with hyperglycemia Medications: New Basaglar Omayra U-100 Insulin (insulin glargine) with lunch 6 units (0.06 mL) subcut QAM 30 days 3 mL 11RF NS pen needle, diabetic As directed daily 50 ea 6RF E11.65 - Type 2 diabetes mellitus with hyperglycemia Coding Level of Care Code Est Pt Level 3 (85878) Complex EM visit Add On G2211 Diagnoses Diabetes type 2, uncontrolled E11.65 CPT Codes Details - CPT: 98858 - Glucose monitoring, continuous-physician I&R ([id number]) Time Spent (min) 20 Comment Time spent reviewing labs/provider notes, glucose,sensor reports, face to face, chart doc
[2024-08-26 13:10] VITALS: BP 112/46; PULSE 78; O2SAT 95; BMI 19.5
[2024-08-26 13:26] LABS: Glucose, Whole Blood 167 mg/dL (60-115)
--- OUTSIDE RECORDS SUMMARY | 2024-08-26 15:22 | XMS_ITS | Patient Health Record ---
Author Organization [facility] Address [address] [place] [address] Care Team Providers Care Fine Arts Model Name Role Phone Lemuel LUGO Mary Jesus Primary Care Provider Un available Ruben Valdes Jr Unavailable [phone] Allergies Allergen (clinical drug ingredient) Drug/Non Drug [...] Problem Status W/U Status Risk Notes Problem [id number] Colon cancer screening (Z12.11) Active confirmed Problem 504242847 Long-term use of aspirin therapy (Z79.82) Active confirmed Problem 291298551 FH: colon cancer (Z80.0) Active confirmed Plan Of Treatment Future Test Test Name Order Date COLONOSCOPY 07/16/2014 COLONOSCOPY 11/30/2021 Insurance Providers Payer Name Payer Address Payer Phone Subscriber Number Group Number Insured Name Patient Relationship to Insured Coverage Start Date Coverage End Date MEDICARE OF [place] [address] [place] [address] [phone] [id number] ARACELI KC Self - patient is the insured MEDEX ATTN CLAIMS [address] [place] [address] [id number] ARACELI KC Self - patient is the insured Medical (General) History Medical History History ICD Code Colonoscopy 02/05/15, normal, five-year followup for family history Glaucoma diabetes mellitus elevated cholesterol Osteoporosis Anemia Ptosis Surgical History Surgery Date(Month/Year) ear surgery detached retina cataract-lens implants
== END 2024-08-26 14:09 | disposition home or self-care (01) ==
LOC: HO.ENCR 13:04
PROVIDERS: PCP Family Medicine; Visit Provider Nurse Practitioner Adult Health
DX: E11.65 Type 2 diabetes mellitus with hyperglycemia (principal)
CPT/HCPCS: 95251; 99213

== ENCOUNTER → 2024-08-26 13:03 | Outpatient (BNVA) | payer MEDICARE, SELFPAY | PROVIDERS: PCP Family Medicine; Visit Provider Nurse Practitioner Adult Health | DX: E11.65 Type 2 diabetes mellitus with hyperglycemia (principal); Z79.4 Long term (current) use of insulin | CPT/HCPCS: 82947; 83036; 99212 ==

== ENCOUNTER 2024-09-09 13:21 | Outpatient (AMB) | payer MEDICARE, SELFPAY ==
--- NOTE | 2024-09-09 14:18 | AM.OFFVISNUR ---
Intake Visit Reasons: Evenity #7 Allergies penicillin V Allergy (Unknown, Verified 08/26/24 13:11) Unknown empagliflozin (From Jardiance) Adverse Reaction (Intermediate, Verified 08/26/24 13:11) uti Office Meds romosozumab-aqqg 210 mg/2.34 mL(105 mg/1.17 mL x2)subcutaneous syringe Performing Provider: Henry Lynch MD Performing Location: [facility] [place] Endocrinology Administered by: Becca Magallanes RN on 09/09/24 14:18 Dose Route Admin Location Dispensed Lot Number Expiration Date [facility] Pipeline Inspector 210 mg subcut bilateral upper arms 2.34 mL [id number] 10/16/26 67018-258-98 AMGEN Total Dispensed Waste 2.34 mL 0 % Comments: Pt tolerated injection well, no adverse reactions reported from previous injection. No further questions at this time. Assessment & Plan Assessment & Plan Orders: Orders AMB Romosozumab Injection Patient Supplied Today M81.0 - Age-related osteoporosis without current pathological fracture Coding
--- OUTSIDE RECORDS SUMMARY | 2024-09-09 15:19 | XMS_ITS | Patient Health Record ---
Author Organization [facility] Address [address] [place] [address] Care Team Providers Care Device Sales Consultant Name Role Phone Lemuel LUGO Mary Jesus Primary Care Provider Un available Ruben Valdes Jr Unavailable [phone] Allergies Allergen (clinical drug ingredient) Drug/Non Drug [...] Problem Status W/U Status Risk Notes Problem [id number] Colon cancer screening (Z12.11) Active confirmed Problem 889557993 Long-term use of aspirin therapy (Z79.82) Active confirmed Problem 959138730 FH: colon cancer (Z80.0) Active confirmed Plan Of Treatment Future Test Test Name Order Date COLONOSCOPY 07/16/2014 COLONOSCOPY 11/30/2021 Insurance Providers Payer Name Payer Address Payer Phone Subscriber Number Group Number Insured Name Patient Relationship to Insured Coverage Start Date Coverage End Date MEDICARE OF [place] [address] [place] [id number] ARACELI KC Self - patient is the insured MEDEX ATTN CLAIMS [address] [place] [address] [id number] ARACELI KC Self - patient is the insured Medical (General) History Medical History History ICD Code Colonoscopy 02/05/15, normal, five-year followup for family history Glaucoma diabetes mellitus elevated cholesterol Osteoporosis Anemia Ptosis Surgical History Surgery Date(Month/Year) ear surgery detached retina cataract-lens implants
== END 2024-09-09 14:07 | disposition home or self-care (01) ==
LOC: HO.ENCR 13:21
PROVIDERS: PCP Family Medicine; Visit Provider Internal Medicine Endocrinology, Diabetes & Metabolism
DX: M81.0 Age-related osteoporosis without current pathological fracture (principal)

== ENCOUNTER → 2024-09-09 13:21 | Outpatient (BNVA) | payer MEDICARE, SELFPAY | PROVIDERS: PCP Family Medicine; Visit Provider Internal Medicine Endocrinology, Diabetes & Metabolism | DX: M81.0 Age-related osteoporosis without current pathological fracture (principal) | CPT/HCPCS: 96372; J3111 ==

== ENCOUNTER 2024-10-13 09:06 | Outpatient (AMB) | payer MEDICARE, SELFPAY ==
--- NOTE | 2024-10-13 09:38 | AM.OFFVISNUR ---
Intake Visit Reasons: DM follow-up Allergies penicillin V Allergy (Unknown, Verified 08/26/24 13:11) Unknown empagliflozin (From Jardiance) Adverse Reaction (Intermediate, Verified 08/26/24 13:11) uti Office Meds romosozumab-aqqg 210 mg/2.34 mL(105 mg/1.17 mL x2)subcutaneous syringe Performing Provider: Henry Lynch MD Performing Location: [facility] [place] Administered by: Becca Magallanes RN on 10/13/24 09:38 Dose Route Admin Location Dispensed Lot Number Expiration Date [facility] [place] Marketing Technology Specialist 210 mg subcut bilateral upper arms 2.34 mL [id number] 12/16/26 08282-865-78 AMGEN Total Dispensed Waste 2.34 mL 0 % Comments: No adverse reactions reported from previous injection. Pt tolerated injection well. No further questions at this time. Assessment & Plan Assessment & Plan Orders: Orders AMB Romosozumab Injection Patient Supplied Today M81.0 - Age-related osteoporosis without current pathological fracture Coding
[2024-10-13 09:46] LABS: Glucose, Whole Blood 223 mg/dL (60-115)
--- OUTSIDE RECORDS SUMMARY | 2024-10-13 09:57 | XMS_ITS | Patient Health Record ---
Author Organization [facility] Address [address] [place] [address] Care Team Providers Care Rehabilitation Engineer Name Role Phone Lemuel LUGO Mary Jesus [...] Problem Status W/U Status Risk Notes Problem [id number] Colon cancer screening (Z12.11) Active confirmed Problem 119072641 Long-term use of aspirin therapy (Z79.82) Active confirmed Problem 296023013 FH: colon cancer (Z80.0) Active confirmed Plan Of Treatment Future Test Test Name Order Date COLONOSCOPY 07/16/2014 COLONOSCOPY 11/30/2021 Insurance Providers Payer Name Payer Address Payer Phone Subscriber Number Group Number Insured Name Patient Relationship to Insured Coverage Start Date Coverage End Date MEDICARE OF [place] [address] [place] [address] [id number] ARACELI KC Self - patient is the insured MEDEX ATTN CLAIMS [address] [place] [address] [phone] [id number] ARACELI KC Self - patient is the insured Medical (General) History Medical History History ICD Code Colonoscopy 02/05/15, normal, five-year followup for family history Glaucoma diabetes mellitus elevated cholesterol Osteoporosis Anemia Ptosis Surgical History Surgery Date(Month/Year) ear surgery detached retina cataract-lens implants
--- OUTSIDE RECORDS SUMMARY | 2024-10-13 09:57 | XMS_ITS | Patient Health Record ---
Author Organization [facility] ariella [place] Address [address] [place] [address] Care Team Providers Care Stiff Neck Loader Name Role Phone Marin SHAIKH, Bal Primary Care Provider Ever Montano Unavailable [phone] Allergies Allergen (clinical drug ingredient) Drug/Non Drug [...] Duration) Notes Start Date End Date Status Citracal Plus as directed Orally Not-Taking Multi Vitamin/Minerals as directed Orally Not-Taking Travatan Z Not-Takin g Magnesium 300 MG 1 capsule with a latisha l Orally Once a day; Duration: 30 day(s) Not-Taking Daily Vitamins for Women Active glipiZIDE 10 MG 1 tablet Orally Once a day; Duration: 30 day(s) Unknown Iron Active Azopt Not-Taking Janumet XR Active Calcium Active Invokana Unknown Aspirin 81 MG 1 tablet Orally Once a day; Duration: 30 day(s) Not-Esa ing Extra Depth Orthopedic Shoes, (1) Pair With (3) Pair Custom Heat Molded Multidensity Innersoles Dx: NIDDM/PVD(E11.51), Hammertoe Foot Deformity(M20.41,M20.42) , Preulcerative Skin Lesion(s)(L85.1) Wear Daily; Duration: 365 days 06/24/2024 Active Atorvastatin Calcium 10 MG 1 tablet Orally Once a day; Duration: 30 day(s) Not-Esa ing Immunizations Vaccine Route Administration Date Status Comme nts Influenza Unknown 01/22/2017 Administered Influenza Unknown 01/21/2018 Administered Influenza Unknown 12/11/2018 Administered Influenza Unknown 12/18/2023 Administered Social History Tobacco Use: Social History [...] Problem Acquired hammer toe of right foot (761981023321 9105) Other hammer toe(s) (acquired), right foot (M20.41) Active confirmed Problem Type 2 diabetes mellitus with diabetic peripheral angiopathy without gangrene (E11.51) Active confirmed Q7(A), Q8(2B), Q9(1B,2C) Problem Acquired hammer toe of left foot (559134712890 9103) Other hammer toe(s) (acquired), left foot (M20.42) Active confirmed Vital Signs Blood pressure diastolic 65 mm Hg 09/30/2024 Height 4 ft 11 in in 09/30/2024 Blood pressure systolic 128 mm Hg 09/30/2024 Weight 98 lbs 09/30/2024 BMI 19.79 kg/m2 09/30/2024 Procedures Procedure Date Ordered Date Performed Result Body Sit e 64446-AJINHKD NAIL, 6 OR MORE 06/24/2024 N/A 83863-SBOY SKIN LESIONS, 2 TO 4 06/24/2024 N/A 79089-UCAUMIU NAIL, 6 OR MORE 09/30/2024 N/A 61697-GDIM SKIN LESIONS, 2 TO 4 09/30/2024 N/A Encounters Encounter Location Date [facility] [address] [place] [address] 06/24/2024 Ever Mata Type 2 diabetes mellitus with diabetic peripheral angiopathy without gangrene E11.51 ; Tinea unguium B35.1 ; Pain in right toe(s) M79.674 ; Pain in left toe(s) M79.675 ; Other hammer toe(s) (acquired), left foot M20.42 and Other hammer toe(s) (acquired), right foot M20.[address] [facility] [address] 09/30/2024 Ever Mata Type 2 diabetes mellitus with diabetic peripheral angiopathy without gangrene E11.51 ; Other hammer toe(s) (acquired), right foot M20.41 ; Tinea unguium B35.1 ; Pain in right toe(s) M79.674 ; Pain in left toe(s) M79.675 and Other hammer toe(s) (acquired), left foot M20.[facility] [address] [facility]/14/[facility] [address] 07/14/2024 Ever Mata Assessments Encounter Date Diagnosis (ICD Code) Assessment Notes Treatment Notes Treatment Clinical Notes Section Notes 06/24/2024 Type 2 diabetes mellitus with diabetic peripheral angiopathy without gangrene (ICD-10 - E11.51) Q7(A), Q8(2B), Q9(1B,2C) 09/30/2024 Other hammer toe(s) (acquired), right foot (ICD-10 - M20.41) 09/30/2024 Type 2 diabetes mellitus with diabetic peripheral angiopathy without gangrene (ICD-10 - E11.51) Q7(A), Q8(2B), Q9(1B,2C) 06/24/2024 Tinea unguium (ICD-10 - B35.1) 09/30/2024 Tinea unguium (ICD-10 - B35.1) 06/24/2024 Pain in right toe(s) (ICD-10 - M79.674) 09/30/2024 Pain in right toe(s) (ICD-10 - M79.674) 06/24/2024 Pain in left toe(s) (ICD-10 - M79.675) 09/30/2024 Pain in left toe(s) (ICD-10 - M79.675) 09/30/2024 Other hammer toe(s) (acquired), left foot (ICD-10 - M20.42) 06/24/2024 Other hammer toe(s) (acquired), left foot (ICD-10 - M20.42) 06/24/2024 Other hammer toe(s) (acquired), right foot (ICD-10 - M20.41) Patient Educated with: DIABETIC FOOT CARE INSTRUCTIONS.p df (DIABETIC FOOT CARE INSTRUCTIONS.p df) Plan Of Treatment Pending Test Test Name Order Date 40085-HZIPLIF NAIL, 6 OR MORE 08/09/2012 74894-KLPSOMX NAIL, 6 OR MORE 12/31/2012 16793-BCMRTAY NAIL, 6 OR MORE 10/17/2016 07045-EDXTVXX NAIL, 6 OR MORE 11/27/2017 58455-EVIMSDI NAIL, 6 OR MORE 02/26/2018 64369-JYKOQAI NAIL, 6 OR MORE 05/28/2018 99698-ZDMSUHI NAIL, 6 OR MORE 08/30/2018 89949-UUTRZTF NAIL, 6 OR MORE 12/06/2018 76076-RIDZOHH NAIL, 6 OR MORE 08/28/2017 52736-NHCGTLZ NAIL, 6 OR MORE 04/08/2019 94918-DOHVUYX NAIL, 6 OR MORE 06/24/2024 36358-GDQQKQN NAIL, 6 OR MORE 09/30/2024 41522-Kkmzzxwr Plate 10/17/2016 67232-Zzvyubvs Plate 11/27/2017 47289-Kjynecly Plate 12/06/2018 22396-Phizrmxk Plate 08/28/2017 10505-Lqbkotiq Plate 08/09/2012 76027-Uobrygbp Plate 12/31/2012 59195-Hwhxweup Plate Each Additional 93383- Debride <25 sq cm 12/31/2012 71422-UKKU SKIN LESIONS, 2 TO 4 06/25/19 80651-RQFX SKIN LESIONS, 2 TO 4 10/01/19 Next Appt Details Provider Name:Ever Mata , 12/30/2024 01:45:00 PM, [address] [facility], [place], [address], Insurance Providers Payer Name Payer Address Payer Phone Subscriber Number Group Number Insured Name Patient Relationship to Insured Coverage Start Date Coverage End Date Medicare National Govt Svcs Inc [address] [place] [address] [id number] Suys Lacy Self - patient is the insured 4 Medex Blue Shield [address] [place] [address] [phone] [id number] 2 Susy Lacy Self - patient is the insured Medical (General) History Medical History History ICD Code Arthritis cataracts diabetic osteoporosis cholesterol Glaucoma Measles Mumps Chicken pox Surgical History Surgery Date(Month/Year) ear surgery cataract surgery 10/2012 Hospitalization History Reason Date(Month/Year) Patient had iv yesterday for osteoporosi s. 07/09/2012
--- NOTE | 2024-10-13 10:08 | A.OFFVIS_ITS ---
Intake Visit Reasons: DM follow-up Allergies penicillin V Allergy (Unknown, Verified 10/13/24 09:57) Unknown empagliflozin (From Jardiance) Adverse Reaction (Intermediate, Verified 10/13/24 09:57) uti PFSH Medical History Anemia Glaucoma Vitamin D deficiency Dyslipidemia Osteoporosis Diabetic nephropathy associated with type 2 diabetes mellitus Diabetes type 2, uncontrolled Surgical History Hx of eye surgery Hx of cataract extraction H/O colonoscopy History of ear surgery Family History Father Heart disease Mother CHF (congestive heart failure) Social History Household Members: None Alcohol intake: never Patient Tobacco Use Status: Never used Tobacco service: No Current occupational status: retired Office Meds romosozumab-aqqg 210 mg/2.34 mL(105 mg/1.17 mL x2)subcutaneous syringe Performing Provider: Henry Lynch MD Performing Location[place] [facility] [place] [facility] Administered by: Becca Magallanes RN on 10/13/24 09:38 Dose Route Admin Location Dispensed Lot Number Expiration Date ND Metallurgical Engineering Teacher 210 mg subcut bilateral upper arms 2.34 mL [id number] 12/16/26 98984-963- 02 AMGEN Total Dispensed Waste 2.34 mL 0 % Comments: No adverse reactions reported from previous injection. Pt tolerated injection well. No further questions at this time. Results Reviewed Results Reviewed: Laboratory Last Values Glucose (Clinic) 223 mg/dL (60-115) H 10/13/24 09:43 Assessment & Plan Assessment & Plan Orders: Orders AMB Romosozumab Injection Patient Supplied Today M81.0 - Age-related osteoporosis without current pathological fracture Coding
== END 2024-10-13 10:00 | disposition home or self-care (01) ==
LOC: HO.ENCR 09:15
PROVIDERS: PCP Family Medicine; Visit Provider Physician Assistant
DX: M81.0 Age-related osteoporosis without current pathological fracture (principal)

== ENCOUNTER → 2024-10-13 09:06 | Outpatient (BNVA) | payer MEDICARE, SELFPAY | PROVIDERS: PCP Family Medicine; Visit Provider Physician Assistant | DX: M81.0 Age-related osteoporosis without current pathological fracture (principal); E11.65 Type 2 diabetes mellitus with hyperglycemia; E78.5 Hyperlipidemia, unspecified; I95.9 Hypotension, unspecified | CPT/HCPCS: 82947; 96372; 99211; 99212; J3111 ==

== ENCOUNTER 2024-10-13 09:07 | Outpatient (AMB) | payer MEDICARE, SELFPAY ==
--- NOTE | 2024-10-13 09:44 | AM.OFFVISNUR ---
Intake Visit Reasons: Evenity #8 Allergies penicillin V Allergy (Unknown, Verified 10/13/24 09:57) Unknown empagliflozin (From Jardiance) Adverse Reaction (Intermediate, Verified 10/13/24 09:57) uti Office Meds romosozumab-aqqg 210 mg/2.34 mL(105 mg/1.17 mL x2)subcutaneous syringe Performing Provider: Henry Lynch MD Performing Location: [facility] [place] Endocrinology Administered by: Becca Magallanes RN on 10/13/24 10:10 Dose Route Admin Location Dispensed Lot Number Expiration Date [facility]NOTE 3] Rack Carrier 210 mg subcut bilateral upper arms 2.34 mL [id number] 12/16/26 60362-057-56 AMGEN Total Dispensed Waste 2.34 mL 0 % Comments: No adverse reactions reported from previous injection. Pt tolerated injection well. No further questions at this time. Assessment & Plan Assessment & Plan Orders: Orders AMB Romosozumab Injection Patient Supplied Today M81.0 - Age-related osteoporosis without current pathological fracture Coding
== END 2024-10-13 10:14 | disposition home or self-care (01) ==
LOC: HO.ENCR 09:16
PROVIDERS: PCP Family Medicine; Visit Provider Internal Medicine Endocrinology, Diabetes & Metabolism
DX: M81.0 Age-related osteoporosis without current pathological fracture (principal)
CPT/HCPCS: 99499

== ENCOUNTER 2024-10-13 09:07 | Outpatient (AMB) | payer MEDICARE, SELFPAY ==
--- NOTE | 2024-10-13 09:45 | AM.OFFVISNUR ---
Intake Visit Reasons: DM Venetian Blind Worker Required: No Accompanied by: Self / Same As Patient Allergies penicillin V Allergy (Unknown, Verified 10/13/24 09:57) Unknown empagliflozin (From Jardiance) Adverse Reaction (Intermediate, Verified 10/13/24 09:57) uti Coding
--- NOTE | 2024-10-13 10:53 | MHC.AMDMED ---
Intake Intake Visit Reasons: DM Residential Treatment Specialist Required: No Accompanied by: Self / Same As Patient Allergies penicillin V Allergy (Unknown, Verified 10/13/24 09:57) Unknown empagliflozin (From Jardiance) Adverse Reaction (Intermediate, Verified 10/13/24 09:57) uti PFSH Medical History Anemia Glaucoma Vitamin D deficiency Dyslipidemia Osteoporosis Diabetic nephropathy associated with type 2 diabetes mellitus Diabetes type 2, uncontrolled Surgical History Hx of eye surgery Hx of cataract extraction H/O colonoscopy History of ear surgery Family History Father Heart disease Mother CHF (congestive heart failure) Social History Household Members: None Alcohol intake: never Patient Tobacco Use Status: Never used Tobacco service: No Current occupational status: retired Assessment & Plan Assessment & Plan (1) Diabetes type 2, uncontrolled: Code(s): E11.65 - Type 2 diabetes mellitus with hyperglycemia Plan: Diabetes self-management education and support participation record Assessment/scale: 1= needs instructed? 2= needs review? 3= comprehend keep point? 4= demonstrates understanding/ competent? NC= Not Covered Topics Learning Objective: Initial visit Initial or post srvc Initial or post srvc Initial or post srvc Initial or post srvc Initial or post srvc Post srvc Comments Pre Edu-assessment/plan Outcome or reassess Outcome or reassess Outcome or reassess Outcome or reassess Outcome or reassess Outcome or reassess Diabetes pathophysiology 1 Healthy eating 1 Being active 1 Taking medication 1 Monitoring glucose 1 Acute complication 1 Chronic complicated 1 Lifestyle and healthy coping 1 Diabetes distress in support 1 ?Diabetes pathophysiology: ?Defined diabetes med identify own type of diabetes; list 3 options for treating diabetes Healthy eating: ?Described effect of type, amount and ?timing of food on blood glucose; list 3 methods for planning meal Being active: ?State effect of exercise on blood glucose level Taking medication: ?State effect of diabetes medications on diabetes; name diabetes medications taking, action and side effects Monitoring glucose: ?Identify recommended blood glucose targets and personal target Acute complication: ?List symptoms and treatment of hyper and hypoglycemia, DKA, sick day guidelines and guidelines for severe weather or situations of crisis and diabetes supply manage Chronic complication: ?To find the relationship of blood glucose levels to long-term complications of diabetes in screening and preventative measures Lifestyle and healthy coping: ?Described lifestyle and healthy coping strategies to rule out diabetes self-management Diabetes to stress and support: ?Recognize Diabetes to stress and be able to identified support options Patient at visit to set up an insert Susan 3+ with phone rosa elena User name:[email or web address] Password: [email or web address] Instructed patient sensors water proof you can shower, or swim do not submerge sensor in water for over 30 minutes Is sensor falls off cannot put back in you need to replace sensor, customer service number given to patient for sensor replacement Sensor placed on the Susan 3+ back of left arm Patient left visit with sensor in warmup Reviewed how to interpret trend arrows Discussed lag time between finger stick and sensor data.? Instructed patient the importance of having blood glucometer for backup testing if needed Reviewed delay of CGM from fingersticks Reminded Pt that if symptoms do not match sensor still needs to check fingersticks. Learning objectives: The patient was provided with verbal and written education on the following topics as outlined below. The patient met all learning objectives and was able to verbalize understanding and provide teach back of education topics discussed . The patient was provided with the opportunity to ask questions and all questions were answered. Patient Assessment Assess patient education level/literacy/barriers patient's A1c on 08/26/2024 8.2%. Patient lives alone in elderly housing. Has family in the area. Patient questions/concerns Patient on Janumet 50-1000 mg ER b.i.d. Acarbose 25 mg b.i.d. Patient reports she has not started Basaglar 6 units daily What is Diabetes? Pathophysiology How the body produces and uses insulin Identify type of DM Risk factors Signs of Diabetes Brief overview of Diabetes Management Monitoring blood sugar Following a meal plan Regular exercise Maintaining a healthy weight Taking medication as needed Members of the care team (PCP, RN, MA, RD, CDE, brand ambassador) Blood glucose monitoring When/how often to test Target blood sugar ranges Introduction to Nutrition Importance of healthy diet in managing DM Diet is personalized to individual preference Review patient?s regular diet/food preferences Who prepares meals/does food shopping/ Dining out?/ Barriers? How diet effects glucose Eating 3 balanced meals a day with small, healthy snacks between meals Review food groups Carbohydrates: What is a carbohydrate/Which food/food groups are considered carbohydrates Effect of carbohydrates on blood glucose Portion sizes Reading food labels Basic carb counting (if applicable per nursing assessment) Plate method Meal planning Recommendations: Follow plate method, consistent carbs and read nutritional labels. Smart Goal: Educational Materials: The patient was provided with the following written educational materials: Planning Healthy Meals Handout Patient Response to instructions: Comprehension of Instructions: Fair Readiness to make changes: Contemplation How confident they feel about making changes: Positive Portions of this note were created using voice recognition software, please excuse any words or phrases that may have been misinterpreted. Patient Instructions: Patient instruction: CGM provides information on blood glucose control throughout the day, including hyperglycemia and hypoglycemia. ? Continue to monitor blood glucose as instructed. Follow nutrition guidelines provided. Report any discomfort promptly to health care provider. ?Stay well-hydrated. You can bathe ,shower, swim and exercise while wearing the glucose sensor. Do not submerge glucose sensor in water for more than 30 minutes. Include regular daily activity. ADA recommends 30 minutes of exercise 5 days a week. Weight loss talk to PCP or Punchboard Inserter before starting new plan. Test blood sugar as directed; Fasting and 2hpp largest meal. Watch trends in results. Utilize results and to assess how food, physical activity and medications affect blood sugar results. Bring glucometer or CGM to next visit. Be knowledgeable about diabetes medication, its action, side effects, efficacy, toxicity, prescribed dosage, appropriate timing and frequency of administration, effect of missed and delayed doses and instructions for storage, travel and safety. Problem solving techniques to monitor hypo/hyperglycemia episodes and treatments. Reduce risk reduction behaviors, smoking cessation, regular eye, foot and dental examinations. Coding Level of Care Code Est Pt Level 1 (14353) Diagnoses Diabetes type 2, uncontrolled E11.65
== END 2024-10-13 11:07 | disposition home or self-care (01) ==
LOC: HO.ENCR 09:16
PROVIDERS: PCP Family Medicine; Visit Provider Registered Nurse Diabetes Educator
DX: E11.65 Type 2 diabetes mellitus with hyperglycemia (principal)

== ENCOUNTER 2024-10-13 09:48 | Outpatient (AMB) | payer MEDICARE, SELFPAY ==
--- NOTE | 2024-10-13 09:56 | A.OFFVIS_ITS ---
Vital Signs 10/13/24 09:57 Height 4 ft 11 in Weight 95 lb 15.828 oz BMI 19.4 BP 112/60 Blood Pressure Location Rt brachial Position Sitting Pulse 83 Pulse Source Pulse Oximeter Pulse Oximetry (%) 96 Intake Visit Reasons: DM follow up Intake Note: Patient presents today for a follow-up on Type 2 Diabetes Mellitus: Last Diabetic eye exam was on: 03/20/2024 Last Podiatry exam was on: Does not see a Readers' Advisory Service Librarian Most recent HbA1c: 8.2 , 08/26/2024 Random Glucose- 223 mg/dL, Today Dynamometer Tester Required: No Accompanied by: Self / Same As Patient Allergies penicillin V Allergy (Unknown, Verified 10/13/24 09:57) Unknown empagliflozin (From Sgrouples) Adverse Reaction (Intermediate, Verified 10/13/24 09:57) uti HPI HPI DM follow up: Details: Patient is a 74-year-old female with a significant past medical history of osteoporosis, hypertension, dyslipidemia, normocytic anemia and uncontrolled type 2 diabetes with nephropathy presenting today for a consultation regarding her diabetes. She has followed recently with my colleagues. Endo: States that she has had diabetes for many years. She was previously managed on Janumet XR 2 tablets daily, acarbose 25 mg twice a day and was recently instructed to start taking Lantus 6 units in the morning. She says that she has not yet done this. Her blood sugar today in the office is 223. She says that she did eat breakfast and had coffee this morning. She also took her medication. -trialed glipizide in the past but caused hypoglycemia CGM-usage 98%, average glucose 180, G mi 7.6%, variability 29%. Very hyperglycemic 9%, hyperglycemic 33%, in range 58%, hypoglycemia 0%. -she is due to have her sensor changed and forgot to bring 1 with her today. She is meeting with the extension educator after this appointment. GI: She does get a lot of diarrhea and states that her PCP is aware of this. It is usually after eating. She is not sure if it is related to her medications that she takes for diabetes. She was recently at her brother's house and he co mmented on her stomach upset following eating. No weight loss but weight is stable. No nausea or vomiting. No pain in her stomach. No blood in the stool. She is following with Heme-Onc for her anemia and her PCP for the a GI complaints. CV: Blood pressure today in the office is 112/60. Cholesterol is managed with atorvastatin 40 mg daily. [facility] Medical History Anemia Glaucoma Vitamin D deficiency Dyslipidemia Osteoporosis Diabetic nephropathy associated with type 2 diabetes mellitus Diabetes type 2, uncontrolled Surgical History Hx of eye surgery Hx of cataract extraction H/O colonoscopy History of ear surgery Family History Father Heart disease Mother CHF (congestive heart failure) Social History Household Members: None Alcohol intake: never Patient Tobacco Use Status: Never used Tobacco service: No Current occupational status: retired Physical Exam Vital Signs: Last Vital Signs Pulse 83 10/13/24 09:57 BP 112/60 10/13/24 09:57 Pulse Ox 96 10/13/24 09:57 BMI result Body Mass Index 19.4 Const Orientation/consciousness: patient oriented x3 HEENT Ears: hearing grossly normal bilaterally Neck Thyroid: Thyroid normal Lymphatic: no lymphadenopathy noted Resp Auscultation: clear to auscultation bilaterally Cardio Rate: regular rate Rhythm: regular rhythm Heart sounds: S1 normal heart sound present and S2 normal heart sound present Skin General skin exam: no rashes or lesions noted Neuro General: patient oriented x3, gait normal and no focal motor deficits Results Reviewed Results Reviewed: Laboratory Tests 03/01/24 07/03/24 08/26/24 10:02 09:49 13:25 Creatinine 0.72 Estim Creat Clear Calc 46.0 Estimated GFR > 60 Random Glucose 248 H Hgb A1c (Clinic) 8.2 H AST 24 ALT 12 Triglycerides 78 Cholesterol 126 LDL Cholesterol, Calc 61 HDL Cholesterol 50 Assessment & Plan Assessment & Plan (1) Diabetes type 2, uncontrolled: Code(s): E11.65 - Type 2 diabetes mellitus with hyperglycemia Category: Medical Plan: Advised to start Lantus as instructed We will continue current regimen otherwise Discussed short term follow up. We did discuss at our follow up possibly switching from the Janumet to see if that helps resolve any diarrhea (2) Dyslipidemia: Code(s): E78.5 - Hyperlipidemia, unspecified Category: Medical Plan: Continue atorvastatin 40 mg (3) Hypotension: Code(s): I95.9 - Hypotension, unspecified Category: Medical Plan: WNL today. Coding Level of Care Code Est Pt Level 4 (20388) Diagnoses Diabetes type 2, uncontrolled E11.65 Dyslipidemia E78.5 Hypotension I95.9
[2024-10-13 09:57] VITALS: BP 112/60; PULSE 83; O2SAT 96; BMI 19.4
== END 2024-10-13 10:25 | disposition home or self-care (01) ==
LOC: HO.ENCR 09:48
PROVIDERS: PCP Family Medicine; Visit Provider Physician Assistant
DX: E11.65 Type 2 diabetes mellitus with hyperglycemia (principal); E78.5 Hyperlipidemia, unspecified; I95.9 Hypotension, unspecified

== ENCOUNTER 2024-11-07 11:28 | Outpatient (AMB) | payer MEDICARE, SELFPAY ==
--- OUTSIDE RECORDS SUMMARY | 2024-11-07 11:32 | XMS_ITS | Patient Health Record ---
Author Organization [facility] ariella [place] Address [address] [place] [address] Care Team Providers Care Chronic Manager Name Role Phone Marin SHAIKH, Bal Primary Care Provider Ever Montano Unavailable [phone] Allergies Allergen (clinical drug ingredient) Drug/Non Drug [...] Problem Acquired hammer toe of right foot (199736938524 9105) Other hammer toe(s) (acquired), right foot (M20.41) Active confirmed Problem Type 2 diabetes mellitus with diabetic peripheral angiopathy without gangrene (E11.51) Active confirmed Q7(A), Q8(2B), Q9(1B,2C) Problem Acquired hammer toe of left foot (755694002530 9103) Other hammer toe(s) (acquired), left foot (M20.42) Active confirmed Vital Signs Blood pressure diastolic 65 mm Hg 09/30/2024 Height 4 ft 11 in in 09/30/2024 Blood pressure systolic 128 mm Hg 09/30/2024 Weight 98 lbs 09/30/2024 BMI 19.79 kg/m2 09/30/2024 Procedures Procedure Date Ordered Date Performed Result Body Sit e 95928-IYOFEQI NAIL, 6 OR MORE 06/24/2024 N/A 57505-KNAD SKIN LESIONS, 2 TO 4 06/24/2024 N/A 21498-TFIBUHF NAIL, 6 OR MORE 09/30/2024 N/A 02222-YUBV SKIN LESIONS, 2 TO 4 09/30/2024 N/A Encounters Encounter Location Date Provider [facility] [address] [place] [address] 06/24/2024 Ever Mata Type 2 diabetes mellitus with diabetic peripheral angiopathy without gangrene E11.51 ; Tinea unguium B35.1 ; Pain in right toe(s) M79.674 ; Pain in left toe(s) M79.675 ; Other hammer toe(s) (acquired), left foot M20.42 and Other hammer toe(s) (acquired), right foot M20.[address] [facility] [address] 09/30/2024 Ever Mata Type 2 diabetes mellitus with diabetic peripheral angiopathy without gangrene E11.51 ; Other hammer toe(s) (acquired), right foot M20.41 ; Tinea unguium B35.1 ; Pain in right toe(s) M79.674 ; Pain in left toe(s) M79.675 and Other hammer toe(s) (acquired), left foot M20.42 [facility] [address] [facility]/14/2024 [facility] [address] 07/14/2024 Ever Mata Assessments Encounter Date Diagnosis [...] Treatment Pending Test Test Name Order Date 36050-NULJMEE NAIL, 6 OR MORE 08/09/2012 23658-SIYNZZG NAIL, 6 OR MORE 12/31/2012 88665-PJXKTGZ NAIL, 6 OR MORE 10/17/2016 35756-SQSKDIB NAIL, 6 OR MORE 11/27/2017 02518-GLSIZVT NAIL, 6 OR MORE 02/26/2018 78321-EGJFWUX NAIL, 6 OR MORE 05/28/2018 27420-RSTECHE NAIL, 6 OR MORE 08/30/2018 55116-HYLTWAO NAIL, 6 OR MORE 12/06/2018 86086-OVHGZFZ NAIL, 6 OR MORE 08/28/2017 87720-NWMJTCG NAIL, 6 OR MORE 04/08/2019 94415-NPFUKXZ NAIL, 6 OR MORE 06/24/2024 74810-IMUPAPG NAIL, 6 OR MORE 09/30/2024 91728-Pjoooxrh Plate 10/17/2016 71623-Juzrqklj Plate 11/27/2017 42076-Jnixhmgq Plate 12/06/2018 66595-Huaftand Plate 08/28/2017 22860-Vuatqgzj Plate 08/09/2012 53530-Arjccqfc Plate 12/31/2012 73042-Pnrehytq Plate Each Additional 71658- Debride <25 sq cm 12/31/2012 20368-GIXT SKIN LESIONS, 2 TO 4 06/25/19 41936-BRWL SKIN LESIONS, 2 TO 4 10/01/19 Next Appt Details Provider Name:Ever Mata , 12/30/2024 01:45:00 PM, [address] [facility], [place], [address], Insurance Providers Payer Name Payer Address Payer Phone Subscriber Number Group Number Insured Name Patient Relationship to Insured Coverage Start Date Coverage End Date Medicare National Govt Svcs Inc [address] [place] [address] [id number] Susy Lacy Self - patient is the insured 4 [employer]ex Blue Shield [address] [place] [address] [phone] [id number] 2 Susy Lacy Self - patient is the insured Medical (General) History Medical History History ICD Code Arthritis cataracts diabetic osteoporosis cholesterol Glaucoma Measles Mumps Chicken pox Surgical History Surgery Date(Month/Year) ear surgery cataract surgery 10/2012 Hospitalization History Reason Date(Month/Year) Patient had iv yesterday for osteoporosi s. 07/09/2012
--- OUTSIDE RECORDS SUMMARY | 2024-11-07 11:32 | XMS_ITS | Patient Health Record ---
Author Organization [facility] Address [address] [place] [address] Care Team Providers Care Verification Engineer Name Role Phone Lemuel LUGO Mary [...] Problem Status W/U Status Risk Notes Problem 361032782 Colon cancer screening (Z12.11) Active confirmed Problem 278297639 Long-term use of aspirin therapy (Z79.82) Active confirmed Problem 312406173 FH: colon cancer (Z80.0) Active confirmed Plan Of Treatment Future Test Test Name Order Date COLONOSCOPY 07/16/2014 COLONOSCOPY 11/30/2021 Insurance Providers Payer Name Payer Address Payer Phone Subscriber Number Group Number Insured Name Patient Relationship to Insured Coverage Start Date Coverage End Date MEDICARE OF [place] [address] [place] [address] [id number] ARACELI KC Self - patient is the insured MEDEX ATTN CLAIMS [address] [place] [address] [id number] ARACELI KC Self - patient is the insured Medical (General) History Medical History History ICD Code Colonoscopy 02/05/15, normal, five-year followup for family history Glaucoma diabetes mellitus elevated cholesterol Osteoporosis Anemia Ptosis Surgical History Surgery Date(Month/Year) ear surgery detached retina cataract-lens implants
--- NOTE | 2024-11-07 11:48 | AM.OFFVISNUR ---
Intake Visit Reasons: Evenity #9 Allergies penicillin V Allergy (Unknown, Verified 10/13/24 09:57) Unknown empagliflozin (From Jardiance) Adverse Reaction (Intermediate, Verified 10/13/24 09:57) uti Office Meds romosozumab-aqqg 210 mg/2.34 mL(105 mg/1.17 mL x2)subcutaneous syringe Performing Provider: Henry Lynch MD Per[place] [facility] [place] [facility] Administered by: Suzan Melendez RN on 11/07/24 11:48 Dose Route Admin Location Dispensed Lot Number Expiration Date NDC Geriatric Social Worker 210 mg subcut bilateral upper arm 2.34 mL [id number] 12/16/26 40959-782-82 AMGEN Total Dispensed Waste 2.34 mL 0 % Comments: Patient tolerated injection well and denies any adverse reactions to previous injections. Patient scheduled for next injection in x4 weeks. Assessment & Plan Assessment & Plan Orders: Orders AMB Romosozumab Injection Patient Supplied Today M81.0 - Age-related osteoporosis without current pathological fracture Coding
== END 2024-11-07 11:45 | disposition home or self-care (01) ==
LOC: HO.ENCR 11:29
PROVIDERS: PCP Family Medicine; Visit Provider Internal Medicine Endocrinology, Diabetes & Metabolism
DX: M81.0 Age-related osteoporosis without current pathological fracture (principal)

== ENCOUNTER → 2024-11-07 11:28 | Outpatient (BNVA) | payer MEDICARE, SELFPAY | PROVIDERS: PCP Family Medicine; Visit Provider Internal Medicine Endocrinology, Diabetes & Metabolism | DX: M81.0 Age-related osteoporosis without current pathological fracture (principal) | CPT/HCPCS: 96372; J3111 ==

== ENCOUNTER 2024-12-08 10:29 | Outpatient (AMB) | payer MEDICARE, SELFPAY ==
--- NOTE | 2024-12-08 10:53 | AM.OFFVISNUR ---
Intake Visit Reasons: Evenity #10 Allergies penicillin V Allergy (Unknown, Verified 10/13/24 09:57) Unknown empagliflozin (From Jardiance) Adverse Reaction (Intermediate, Verified 10/13/24 09:57) uti Office Meds romosozumab-aqqg 210 mg/2.34 mL(105 mg/1.17 mL x2)subcutaneous syringe Performing Provider: Henry Lynch MD Performing Location: [facility] [place] Administered by: Becca Magallanes RN on 12/08/24 10:53 Dose Route Admin Location Dispensed Lot Number Expiration Date [facility] Chemist Proteins 210 mg subcut bilateral upper arms 2.34 mL [id number] 07/16/26 99829-520-13 AMGEN Total Dispensed Waste 2.34 mL 0 % Comments: No adverse reactions reported from previous injection. Pt tolerated injection well. Pt scheduled in 4 weeks for next appt. No further questions at this time. Assessment & Plan Assessment & Plan Orders: Orders AMB Romosozumab Injection Patient Supplied Today M81.0 - Age-related osteoporosis without current pathological fracture Coding
--- OUTSIDE RECORDS SUMMARY | 2024-12-08 12:49 | XMS_ITS | Patient Health Record ---
Author Organization [facility] ariella [place] Address [address] [place] [address] Care Team Providers Care Lan Analyst Name Role Phone Marin SHAIKH, Bal Primary Care Provider Ever Montano Unavailable [phone] Allergies Allergen (clinical drug ingredient) Drug/Non Drug [...] Problem Acquired hammer toe of right foot (4764222665950 105) Other hammer toe(s) (acquired), right foot (M20.41) Active confirmed Problem Type 2 diabetes mellitus with peripheral angiopathy (912447073) Type 2 diabetes mellitus with diabetic peripheral angiopathy without gangrene (E11.51) Active confirmed Q7(A), Q8(2B), Q9(1B,2C) Problem Acquired hammer toe of left foot (3609296713519 103) Other hammer toe(s) (acquired), left foot (M20.42) Active confirmed Vital Signs Blood pressure diastolic 65 mm Hg 09/30/2024 Height 4 ft 11 in in 09/30/2024 Blood pressure systolic 128 mm Hg 09/30/2024 Weight 98 lbs 09/30/2024 BMI 19.79 kg/m2 09/30/2024 Procedures Procedure Date Ordered Date Performed Result Body Sit e 07406-UDXLURP NAIL, 6 OR MORE 06/24/2024 N/A 60483-ASCL SKIN LESIONS, 2 TO 4 06/24/2024 N/A 54592-SQWNCZH NAIL, 6 OR MORE 09/30/2024 N/A 08962-NPZU SKIN LESIONS, 2 TO 4 09/30/2024 N/A Encounters Encounter Location Date Provider Diagnosis [facility] [place] [address] [place] [address] 06/24/2024 Ever Mata Type 2 diabetes mellitus with diabetic peripheral angiopathy without gangrene E11.51 ; Tinea unguium B35.1 ; Pain in right toe(s) M79.674 ; Pain in left toe(s) M79.675 ; Other hammer toe(s) (acquired), left foot M20.42 and Other hammer toe(s) (acquired), right foot M20.[address] [facility] [address] 09/30/2024 Ever Mata Type 2 diabetes mellitus with diabetic peripheral angiopathy without gangrene E11.51 ; Other hammer toe(s) (acquired), right foot M20.41 ; Tinea unguium B35.1 ; Pain in right toe(s) M79.674 ; Pain in left toe(s) M79.675 and Other hammer toe(s) (acquired), left foot M20.[address] [address] 04/14/2024 Ever Mata [address] [address] 07/14/2024 Ever Mata Assessments Encounter Date Diagnosis [...] Treatment Pending Test Test Name Order Date 17311-VPQIBEI NAIL, 6 OR MORE 08/09/2012 76332-RXFKRBI NAIL, 6 OR MORE 12/31/2012 10631-APSATMP NAIL, 6 OR MORE 10/17/2016 64688-RSLIXHM NAIL, 6 OR MORE 11/27/2017 36261-YAMTBOL NAIL, 6 OR MORE 02/26/2018 37566-JHXLQVX NAIL, 6 OR MORE 05/28/2018 24472-AZUYNQH NAIL, 6 OR MORE 08/30/2018 78613-PDQFKUS NAIL, 6 OR MORE 12/06/2018 40210-DSWSEKA NAIL, 6 OR MORE 08/28/2017 48307-RONOAJF NAIL, 6 OR MORE 04/08/2019 95138-FZHHKUP NAIL, 6 OR MORE 06/24/2024 75921-YQMSBNB NAIL, 6 OR MORE 09/30/2024 94516-Utommlow Plate 10/17/2016 18894-Ejnbxtwn Plate 11/27/2017 36066-Ybvfudca Plate 12/06/2018 84325-Ieoqbzxs Plate 08/28/2017 46878-Qkhtgwrp Plate 08/09/2012 35914-Ntgbinhn Plate 12/31/2012 53699-Rgmzzqsd Plate Each Additional 18021- Debride <25 sq cm 12/31/2012 43646-URHH SKIN LESIONS, 2 TO 4 06/25/19 25 20338-FNXS SKIN LESIONS, 2 TO 4 10/01/19 Next Appt Details Provider Name:Ever V Adolfo , 12/30/2024 01:45:00 PM, [address] [facility], [place], [address], Insurance Providers Payer Name Payer Address Payer Phone Subscriber Number Group Number Insured Name Patient Relationship to Insured Coverage Start Date Coverage End Date Medicare National Govt Svcs Inc [address] [place] [address] [id number] Susy Lacy Self - patient is the insured 4 [employer] Blue Shield [address] [place] [address] [phone] [id number] 2 Susy Lacy Self - patient is the insured Medical (General) History Medical History History ICD Code Arthritis cataracts diabetic osteoporosis cholesterol Glaucoma Measles Mumps Chicken pox Surgical History Surgery Date(Month/Year) ear surgery cataract surgery 10/2012 Hospitalization History Reason Date(Month/Year) Patient had iv yesterday for osteoporosi s. 07/09/2012
--- OUTSIDE RECORDS SUMMARY | 2024-12-08 12:49 | XMS_ITS | Patient Health Record ---
Author Organization [facility] Address [address] [place] [address] Care Team Providers Care Security Tester Name Role Phone Lemuel LUGO Mary Jesus Primary Care Provider Un available Ruben Valdes Jr Unavailable Allergies Allergen (clinical drug ingredient) Drug/Non Drug Allergy documented on EMR Reaction Allergy Type Onset Date Status acetaminophen Midol Unknown Drug Allergy Act mlyes Penicillin Unknown Drug Allergy Active Reason For [...] Problem Status W/U Status Risk Notes Problem 191247927 Colon cancer screening (Z12.11) Active confirmed Problem 627928090 Long-term use of aspirin therapy (Z79.82) Active confirmed Problem 763445233 FH: colon cancer (Z80.0) Active confirmed Plan Of Treatment Future Test Test Name Order Date COLONOSCOPY 07/16/2014 COLONOSCOPY 11/30/2021 Insurance Providers Payer Name Payer Address Payer Phone Subscriber Number Group Number Insured Name Patient Relationship to Insured Coverage Start Date Coverage End Date MEDICARE OF [place] [address] [place] [address] [id number] ARACELI KC Self - patient is the insured MEDEX ATTN CLAIMS [address] [place] [address] [id number] 2 ARACELI KC Self - patient is the insured Medical (General) History Medical History History ICD Code Colonoscopy 02/05/15, normal, five-year followup for family history Glaucoma diabetes mellitus elevated cholesterol Osteoporosis Anemia Ptosis Surgical History Surgery Date(Month/Year) ear surgery detached retina cataract-lens implants
== END 2024-12-08 10:52 | disposition home or self-care (01) ==
LOC: HO.ENCR 10:30
PROVIDERS: PCP Family Medicine; Visit Provider Internal Medicine Endocrinology, Diabetes & Metabolism
DX: M81.0 Age-related osteoporosis without current pathological fracture (principal)

== ENCOUNTER → 2024-12-08 10:29 | Outpatient (BNVA) | payer MEDICARE, SELFPAY | PROVIDERS: PCP Family Medicine; Visit Provider Internal Medicine Endocrinology, Diabetes & Metabolism | DX: M81.0 Age-related osteoporosis without current pathological fracture (principal) | CPT/HCPCS: 96372; J3111 ==

== ENCOUNTER 2024-12-12 13:43 | Outpatient (AMB) | payer MEDICARE, SELFPAY ==
--- NOTE | 2024-12-12 13:44 | A.OFFVIS_ITS ---
Vital Signs 12/12/24 13:45 Height 4 ft 11 in Weight 97 lb 14.164 oz BMI 19.8 BP 100/60 Blood Pressure Location Rt brachial Position Sitting Pulse 89 Pulse Source Pulse Oximeter Pulse Oximetry (%) 98 Oxygen Delivery Method Room Air Intake Visit Reasons: t2dm Intake Note: Patient present today for Type 2 Diabetes Mellitus Last Diabetic eye exam: august/2024 Last Podiatry Visit: 09/2024 Random Glucose: 211 mg/dl HgA1C:7.6% Accompanied by: Self / Same As Patient Allergies penicillin V Allergy (Unknown, Verified 12/12/24 13:45) Unknown empagliflozin (From Jardiance) Adverse Reaction (Intermediate, Verified 12/12/24 13:45) uti Medication List - Last Reconciled 12/12/24 by Jewels Martinez PA-C acarbose 25 mg PO BID 30 days [accu-check As directed] atorvastatin 40 mg PO DAILY Basaglar KwikPen U-100 Insulin (insulin glargine) 6 units (0.06 mL) subcut QAM 30 days NS blood sugar diagnostic (Accu-Chek Guide test strips) As directed twice a day blood-glucose meter As directed blood-glucose meter (Accu-Chek Guide Glucose Meter) Use daily As directed to monitor blood glucose calcium citrate-vitamin D3 200 mg-6.25 mcg (250 unit) (Citracal-D3 Petites) 2 tabs PO TID 30 days [diabetic shoes extra depth orthopedic shoes ( 1 pair ) with customize heat molded multi density inner soles ( 3 pair) Dispense 1 Sig: As directed DX: And IDDM /polyneuropathy ( E11 0.42 ); hammertoe foot deformity ( M 20.41, and 20.42 ) pre ulcerative skin lesion ( L 85.1 ) Diagnosis ( E11 0.42 ) type 2 diabetes with polyneuropathy] dorzolamide-timolol 22.3-6.8 mg/mL 1 drp ophthalmic (eye) BID ferrous sulfate 325 mg PO DAILY lancing device with lancets (Accu-Chek FastClix Lancing Device kit) As directed pen needle, diabetic As directed daily romosozumab-aqqg (Evenity) 210 mg (2.34 mL) subcut .qmonthly sitagliptin phos-metformin 50-1,000 mg ER (Janumet XR) 2 tabs PO DAILY vit C,W-Za-ktswk-lutein-zeaxan 250-90-40-1 mg 1 cap PO BID HPI HPI t2dm: Details: Patient is a 74-year-old female with a significant past medical history of osteoporosis, hypertension, dyslipidemia, normocytic anemia and uncontrolled type 2 diabetes with nephropathy presenting today for a consultation regarding her diabetes. She has followed recently with my colleagues. Endo: States that she has had diabetes for many years. Her a1c is 7.6 today. She is managed with Janumet XR 2 tablets daily, acarbose 25 mg twice a day and was recently instructed to start taking Lantus 6 units in the morning. She says that she has not yet done this. Her blood sugar today in the office is 211. She did wear a sensor last month and bs were a lot better w/o insulin. -trialed glipizide in the past but caused hypoglycemia CGM-not currently using -she is due to have her sensor changed and forgot to bring 1 with her today. She is meeting with the fitness sales consultant after this appointment. CV: Blood pressure today in the office is 100/60. Cholesterol is managed with atorvastatin 40 mg daily. PFSH Medical History Anemia Glaucoma Vitamin D deficiency Dyslipidemia Osteoporosis Diabetic nephropathy associated with type 2 diabetes mellitus Diabetes type 2, uncontrolled Surgical History Hx of eye surgery Hx of cataract extraction H/O colonoscopy History of ear surgery Family History Father Heart disease Mother CHF (congestive heart failure) Social History Household Members: None Alcohol intake: never Patient Tobacco Use Status: Never used Tobacco service: No Current occupational status: retired Physical Exam Vital Signs: Last Vital Signs Pulse 89 12/12/24 13:45 BP 100/60 12/12/24 13:45 Pulse Ox 98 12/12/24 13:45 Oxygen Delivery Method Room Air 12/12/24 13:45 BMI result Body Mass Index 19.8 Const Orientation/consciousness: patient oriented x3 HEENT Ears: hearing grossly normal bilaterally Neck Thyroid: Thyroid normal Lymphatic: no lymphadenopathy noted Resp Auscultation: clear to auscultation bilaterally Cardio Rate: regular rate Rhythm: regular rhythm Heart sounds: S1 normal heart sound present and S2 normal heart sound present Skin General skin exam: no rashes or lesions noted Neuro General: patient oriented x3, gait normal and no focal motor deficits Results AMB Hemoglobin A1c AMB Hemoglobin A1c 7.6 % Last Edit by MEME Allred on 12/12/24 14:26 Results Reviewed Results Reviewed: Laboratory Last Values Glucose (Clinic) 211 mg/dL (60-115) H 12/12/24 13:56 Assessment & Plan Assessment & Plan (1) Diabetes type 2, uncontrolled: Code(s): E11.65 - Type 2 diabetes mellitus with hyperglycemia Category: Medical Plan: Advised to start Lantus as instructed We will continue current regimen otherwise advised to wear sensors Sensor applied today Discussed short term follow up. Orders: Orders AMB Hemoglobin A1c Today Jewesl Martinez PA-C E11.65 - Type 2 diabetes mellitus with hyperglycemia Medications: New blood-glucose sensor (FreeStyle Susan 3 Plus Sensor device) Use daily As directed to monitor glucose 6 ea 2RF Jewels Martinez PA-C E08.29 - Diabetes mellitus due to underlying condition with other diabetic kidney complication, R80.9 - Proteinuria, unspecified, Z79.4 - director long term care (current) use of insulin Resumed Beto Cutler U-100 Insulin (insulin glargine) 6 units (0.06 mL) subcut QAM 3 mL 11RF 30 days ROSELYN Chapin NP Coding Level of Care Code Est Pt Level 4 (42295) Complex EM visit Add On G2211 Diagnoses Diabetes type 2, uncontrolled E11.65
[2024-12-12 13:45] VITALS: BP 100/60; PULSE 89; O2SAT 98; BMI 19.8
[2024-12-12 14:00] LABS: Glucose, Whole Blood 211 mg/dL (60-115)
--- OUTSIDE RECORDS SUMMARY | 2024-12-12 14:55 | XMS_ITS | Patient Health Record ---
Author Organization [facility] ariella [place] Address [address] [place] [address] Care Team Providers Care Database Marketing Manager Name Role Phone Marin SHAIKH, Bal Primary Care Provider Ever Montano Unavailable [phone] Allergies Allergen (clinical drug ingredient) Drug/Non Drug [...] Problem Acquired hammer toe of right foot (4661367203237 105) Other hammer toe(s) (acquired), right foot (M20.41) Active confirmed Problem Type 2 diabetes mellitus with peripheral angiopathy (349091204) Type 2 diabetes mellitus with diabetic peripheral angiopathy without gangrene (E11.51) Active confirmed Q7(A), Q8(2B), Q9(1B,2C) Problem Acquired hammer toe of left foot (9804992517803 103) Other hammer toe(s) (acquired), left foot (M20.42) Active confirmed Vital Signs Blood pressure diastolic 65 mm Hg 09/30/2024 Height 4 ft 11 in in 09/30/2024 Blood pressure systolic 128 mm Hg 09/30/2024 Weight 98 lbs 09/30/2024 BMI 19.79 kg/m2 09/30/2024 Procedures Procedure Date Ordered Date Performed Result Body Sit e 08525-HJFWSUW NAIL, 6 OR MORE 06/24/2024 N/A 73161-MRFB SKIN LESIONS, 2 TO 4 06/24/2024 N/A 76296-DBUNWPN NAIL, 6 OR MORE 09/30/2024 N/A 09143-UBAB SKIN LESIONS, 2 TO 4 09/30/2024 N/A Encounters Encounter Location Date Provider Diagnosis [facility] [place] [address] [place] [address] 06/24/2024 Ever Mata Type 2 diabetes mellitus with diabetic peripheral angiopathy without gangrene E11.51 ; Tinea unguium B35.1 ; Pain in right toe(s) M79.674 ; Pain in left toe(s) M79.675 ; Other hammer toe(s) (acquired), left foot M20.42 and Other hammer toe(s) (acquired), right foot M20.[address] [facility] [address] 09/30/2024 Ever Mata Type 2 diabetes mellitus with diabetic peripheral angiopathy without gangrene E11.51 ; Other hammer toe(s) (acquired), right foot M20.41 ; Tinea unguium B35.1 ; Pain in right toe(s) M79.674 ; Pain in left toe(s) M79.675 and Other hammer toe(s) (acquired), left foot M20.[address] [address] 04/14/2024 Ever Mata [address] [address] 07/14/2024 Ever Mata Assessments Encounter Date Diagnosis [...] Treatment Pending Test Test Name Order Date 47658-EVZERQW NAIL, 6 OR MORE 08/09/2012 21044-GKCZEQL NAIL, 6 OR MORE 12/31/2012 11151-TAXRHXN NAIL, 6 OR MORE 10/17/2016 94553-YOTWTOK NAIL, 6 OR MORE 11/27/2017 19207-KSGMXSU NAIL, 6 OR MORE 02/26/2018 95970-LATUDHA NAIL, 6 OR MORE 05/28/2018 95696-FDLGZFU NAIL, 6 OR MORE 08/30/2018 76082-MLNKGMK NAIL, 6 OR MORE 12/06/2018 52407-ZEGAQUH NAIL, 6 OR MORE 08/28/2017 19344-OFQYHAU NAIL, 6 OR MORE 04/08/2019 87997-ADLWCUF NAIL, 6 OR MORE 06/24/2024 43594-IVURNBP NAIL, 6 OR MORE 09/30/2024 14940-Llzgayue Plate 10/17/2016 32041-Bibnwano Plate 11/27/2017 08161-Sdbxayny Plate 12/06/2018 92167-Wajubwhq Plate 08/28/2017 61797-Wbfoslqo Plate 08/09/2012 83347-Cruynsha Plate 12/31/2012 91986-Lulsotts Plate Each Additional 96926- Debride <25 sq cm 12/31/2012 26546-RMDU SKIN LESIONS, 2 TO 4 06/25/19 25 21998-UETZ SKIN LESIONS, 2 TO 4 10/01/19 Next Appt Details Provider Name:Ever V Adolfo , 12/30/2024 01:45:00 PM, [address] [facility], [place], [address], Insurance Providers Payer Name Payer Address Payer Phone Subscriber Number Group Number Insured Name Patient Relationship to Insured Coverage Start Date Coverage End Date Medicare National Govt Svcs Inc [address] [place] [address] [id number] Susy Lacy Self - patient is the insured 4 [employer] Blue Shield [address] [place] [address] [phone] [id number] 2 Susy Lacy Self - patient is the insured Medical (General) History Medical History History ICD Code Arthritis cataracts diabetic osteoporosis cholesterol Glaucoma Measles Mumps Chicken pox Surgical History Surgery Date(Month/Year) ear surgery cataract surgery 10/2012 Hospitalization History Reason Date(Month/Year) Patient had iv yesterday for osteoporosi s. 07/09/2012
--- OUTSIDE RECORDS SUMMARY | 2024-12-12 14:55 | XMS_ITS | Patient Health Record ---
Author Organization [facility] Address [address] [place] [address] Care Team Providers Care Forestry Engineer Name Role Phone Lemuel LUGO Mary [...] Problem Status W/U Status Risk Notes Problem 544586696 Colon cancer screening (Z12.11) Active confirmed Problem 087534179 Long-term use of aspirin therapy (Z79.82) Active confirmed Problem 909414332 FH: colon cancer (Z80.0) Active confirmed Plan Of Treatment Future Test Test Name Order Date COLONOSCOPY 07/16/2014 COLONOSCOPY 11/30/2021 Insurance Providers Payer Name Payer Address Payer Phone Subscriber Number Group Number Insured Name Patient Relationship to Insured Coverage Start Date Coverage End Date MEDICARE OF [place] [address] [place] [address] [id number] ARACELI KC Self - patient is the insured MEDEX ATTN CLAIMS [address] [place] [address] [id number] ARACELI KC Self - patient is the insured Medical (General) History Medical History History ICD Code Colonoscopy 02/05/15, normal, five-year followup for family history Glaucoma diabetes mellitus elevated cholesterol Osteoporosis Anemia Ptosis Surgical History Surgery Date(Month/Year) ear surgery detached retina cataract-lens implants
== END 2024-12-12 14:22 | disposition home or self-care (01) ==
LOC: HO.ENCR 13:44
PROVIDERS: PCP Family Medicine; Visit Provider Physician Assistant
DX: E11.65 Type 2 diabetes mellitus with hyperglycemia (principal)

== ENCOUNTER → 2024-12-12 13:43 | Outpatient (BNVA) | payer MEDICARE, SELFPAY | PROVIDERS: PCP Family Medicine; Visit Provider Physician Assistant | DX: E11.65 Type 2 diabetes mellitus with hyperglycemia (principal); E11.21 Type 2 diabetes mellitus with diabetic nephropathy; Z79.4 Long term (current) use of insulin; E78.5 Hyperlipidemia, unspecified | CPT/HCPCS: 82947; 83036; 99212 ==

== ENCOUNTER 2024-12-16 09:38 | Outpatient (AMB) | payer MEDICARE, SELFPAY ==
--- NOTE | 2024-12-16 10:29 | A.OFFVIS_ITS ---
Intake Intake Visit Reasons: 60 mins Pharmacy Picking Technician Required: No Accompanied by: Self / Same As Patient Allergies penicillin V Allergy (Unknown, Verified 12/12/24 13:45) Unknown empagliflozin (From Jardiance) Adverse Reaction (Intermediate, Verified 12/12/24 13:45) uti PFSH Medical History Anemia Glaucoma Vitamin D deficiency Dyslipidemia Osteoporosis Diabetic nephropathy associated with type 2 diabetes mellitus Diabetes type 2, uncontrolled Surgical History Hx of eye surgery Hx of cataract extraction H/O colonoscopy History of ear surgery Family History Father Heart disease Mother CHF (congestive heart failure) Social History Household Members: None Alcohol intake: never Patient Tobacco Use Status: Never used Tobacco service: No Current occupational status: retired Assessment & Plan Assessment & Plan (1) Diabetes type 2, uncontrolled: Code(s): E11.65 - Type 2 diabetes mellitus with hyperglycemia Plan: Diabetes self-management education and support participation record Assessment/scale: 1= needs instructed? 2= needs review? 3= comprehend keep point? 4= demonstrates understanding/ competent? NC= Not Covered Topics Learning Objective: Initial visit Initial or post srvc Initial or post srvc Initial or post srvc Initial or post srvc Initial or post srvc Post srvc Comments Pre Edu-assessment/plan Outcome or reassess Outcome or reassess Outcome or reassess Outcome or reassess Outcome or reassess Outcome or reassess Diabetes pathophysiology 1 3 Healthy eating 1 3 Being active 1 3 Taking medication 1 3 Monitoring glucose 1 3 Acute complication 1 3 Chronic complicated 1 Lifestyle and healthy coping 1 Diabetes distress in support 1 ?Diabetes pathophysiology: ?Defined diabetes med identify own type of diabetes; list 3 options for treating diabetes Healthy eating: ?Described effect of type, amount and ?timing of food on blood glucose; list 3 methods for planning meal Being active: ?State effect of exercise on blood glucose level Taking medication: ?State effect of diabetes medications on diabetes; name diabetes medications taking, action and side effects Monitoring glucose: ?Identify recommended blood glucose targets and personal target Acute complication: ?List symptoms and treatment of hyper and hypoglycemia, DKA, sick day guidelines and guidelines for severe weather or situations of crisis and diabetes supply manage Chronic complication: ?To find the relationship of blood glucose levels to long- term complications of diabetes in screening and preventative measures Lifestyle and healthy coping: ?Described lifestyle and healthy coping strategies to rule out diabetes self-management Diabetes to stress and support: ?Recognize Diabetes to stress and be able to identified support options User name: .[email or web address] Password: [email or web address] Learning objectives: The patient was provided with verbal and written education on the following topics as outlined below. Assess patient education level/literacy/barriers Patient questions/concerns, patient's A1c on 12/12/2024 7.6%, down from 8.2% in August of 2024 Patient has been experiencing overnight hypoglycemia, recommended to patient she hold evening Janumet to see if hypoglycemia resolves. Patient declined at this time saying that she does not want to stop because she has an improvement in glucose numbers with the medication. Patient agreed to eat healthy complex carb snack before bed to try and alleviate hypoglycemia The patient met all learning objectives and was able to verbalize understanding and provide teach back of education topics discussed . The patient was provided with the opportunity to ask questions and all questions were answered. Topics covered in today?s session included: Medications (If applicable) * Name of medication? * Dosing/administration instructions? * Mechanism of action? * Potential side effects? * Potential adverse reaction and appropriate treatment? * Review onset, peak, duration Assess for concerns re: insurance coverage, cost, barriers to compliance Insulin/Injectables (If applicable) * Storage/care of insulin?? * Injection sites? * Site rotation? * Onset, peak, duration * Drawing up insulin? * Injecting insulin/other injectables? * Sharps disposal Continuous blood glucose monitoring (if applicable) Hypoglycemia and Hyperglycemia * Signs and symptoms? * Causes?? * Treatment? * Preventing hypoglycemia? * When to seek medical attention Target Goals: * Blood glucose targets and how you feel when your blood glucose is in and out of your target ranges. * Monitoring and knowing your A1C. * What can make blood glucose go up and down and preventing high and low blood glucose. * Review of blood sugar targets in expected goal range and outside of expected goal range. * Problem solving and preventing hyper/hypoglycemia. * Sick day management of diabetes. * Using blood sugar results in decision making process in managing diabetes. ?Patient was receptive to information provided and participated in the discussion. Asked?appropriate questions and demonstrated good understanding of the topics discussed.? ? Educational Materials: The patient was provided with the following written educational materials: Target Goal, hypoglycemia handouts New Smart Goal: Patient will treat hypoglycemia with rule of 15s Patient Response to instructions: Comprehension of Instructions: Fair Readiness to make changes: Contemplation How confident they feel about making changes: Positive Portions of this note were created using voice recognition software, please excuse any words or phrases that may have been misinterpreted. Patient Instructions: DIABETES PROBLEMS HOMECARE INSTRUCTIONS Hypo instructions ? When first signs of insulin reaction occur, immediately drink orange juice or cola, or suck on a sugar cube, but only if the person is conscious. ? Person with diabetes should continue taking insulin when ill, unless he/she is not able to eat.? Regularly check blood sugar or urine for sugar and acetone during illness. ? Exercise regularly. ? Pay special attention to the feet.? Avoid cuts, sores, blisters, ill- fitting shoes, or going barefoot.? Promptly treat injuries to the feet. ? Take medications as directed by physician. ? Drink extra water or noncaffeinated, nonsugared drinks to prevented hydration. Signs and symptoms of low blood sugar (happen quickly) Each person's reaction to low blood sugar is different. Learn your own signs and symptoms of when your blood sugar is low. Taking time to write these symptoms down may help you learn your own symptoms of when your blood sugar is low. From milder, more common indicators to most severe, signs and symptoms of low blood sugar include: Feeling shaky Being nervous or anxious Sweating, chills and clamminess Irritability or impatience Confusion Fast heartbeat Feeling lightheaded or dizzy Hunger Nausea Color draining from the skin (pallor) Feeling Sleepy Feeling weak or having no energy Blurred/impaired vision Tingling or numbness in the lips, tongue, or cheeks Headaches Coordination problems, clumsiness Hypoglycemia or blood glucose under 70 use the rule of 15's: If you have your blood glucose meter test your blood glucose, if you do not have your meter still follow below instruction: Keep quick-sugar foods with you at all times.? Take 15 grams of fast acting carbohydrates. Examples are 4 ounces of fruit juice or regular soda pop, 8 ounces fat-free milk, 1 tablespoon of table sugar, honey or corn syrup, jam, one miniature box of raisins, 7-8 gumdrops or Life Savers candy, 4 glucose tablets, and glucose gel.? Retest blood glucose in 15 minutes, if blood glucose is still under 80 repeat rule of 15's. If blood glucose is under 50, take 30 grams of fast acting carbohydrates If you are having hypoglycemia, or insulin reaction, more that a few times a week, call MD or consumer educator F/U BG check Coding Level of Care Code Est Pt Level 1 (80109) Diagnoses Diabetes type 2, uncontrolled E11.65
--- OUTSIDE RECORDS SUMMARY | 2024-12-16 10:31 | XMS_ITS | Patient Health Record ---
Author Organization [facility] ariella [place] Address [address] [place] [address] Care Team Providers Care Career Developer Name Role Phone Marin SHAIKH, Bal Primary Care Provider Ever Montano Unavailable [phone] Allergies Allergen (clinical drug ingredient) Drug/Non Drug [...] Problem Acquired hammer toe of right foot (9201805758768 105) Other hammer toe(s) (acquired), right foot (M20.41) Active confirmed Problem Type 2 diabetes mellitus with peripheral angiopathy (391177737) Type 2 diabetes mellitus with diabetic peripheral angiopathy without gangrene (E11.51) Active confirmed Q7(A), Q8(2B), Q9(1B,2C) Problem Acquired hammer toe of left foot (9192204427821 103) Other hammer toe(s) (acquired), left foot (M20.42) Active confirmed Vital Signs Blood pressure diastolic 65 mm Hg 09/30/2024 Height 4 ft 11 in in 09/30/2024 Blood pressure systolic 128 mm Hg 09/30/2024 Weight 98 lbs 09/30/2024 BMI 19.79 kg/m2 09/30/2024 Procedures Procedure Date Ordered Date Performed Result Body Sit e 42842-PTXRESS NAIL, 6 OR MORE 06/24/2024 N/A 98097-YIHJ SKIN LESIONS, 2 TO 4 06/24/2024 N/A 54840-CZOYHVW NAIL, 6 OR MORE 09/30/2024 N/A 97339-YGCD SKIN LESIONS, 2 TO 4 09/30/2024 N/A Encounters Encounter Location Date Provider Diagnosis [facility] [address] [place] [address] 06/24/2024 Ever Mata Type 2 diabetes mellitus with diabetic peripheral angiopathy without gangrene E11.51 ; Tinea unguium B35.1 ; Pain in right toe(s) M79.674 ; Pain in left toe(s) M79.675 ; Other hammer toe(s) (acquired), left foot M20.42 and Other hammer toe(s) (acquired), right foot M20.41 [facility] [address] [address] 09/30/2024 Ever Mata Type 2 diabetes mellitus with diabetic peripheral angiopathy without gangrene E11.51 ; Other hammer toe(s) (acquired), right foot M20.41 ; Tinea unguium B35.1 ; Pain in right toe(s) M79.674 ; Pain in left toe(s) M79.675 and Other hammer toe(s) (acquired), left foot M20.[address] [facility] [address] 12/16/2024 Ever Mata [address] [address] 04/14/2024 Ever Adolfo [address] [address] 07/14/2024 Ever Mata Assessments Encounter Date Diagnosis [...] Treatment Pending Test Test Name Order Date 14113-OFTGUZY NAIL, 6 OR MORE 08/09/2012 82664-KFWXDIW NAIL, 6 OR MORE 12/31/2012 15944-YKPNBCO NAIL, 6 OR MORE 10/17/2016 00001-RUAULMX NAIL, 6 OR MORE 11/27/2017 28142-XKVEVJJ NAIL, 6 OR MORE 02/26/2018 05603-CAQDZCD NAIL, 6 OR MORE 05/28/2018 78409-GPFFEAC NAIL, 6 OR MORE 08/30/2018 24886-TDFLXTF NAIL, 6 OR MORE 12/06/2018 34077-HYQCOTO NAIL, 6 OR MORE 08/28/2017 39787-NCXZHGD NAIL, 6 OR MORE 04/08/2019 84814-KSWLLXM NAIL, 6 OR MORE 06/24/2024 90375-MZNBTDP NAIL, 6 OR MORE 09/30/2024 46589-Vrksgody Plate 10/17/2016 04960-Xglxxbkg Plate 11/27/2017 31170-Uzouxcap Plate 12/06/2018 16935-Buqauqwr Plate 08/28/2017 04915-Sxhawkgw Plate 08/09/2012 97878-Thtbsrpl Plate 12/31/2012 30610-Dtskittr Plate Each Additional 85024- Debride <25 sq cm 12/31/2012 86144-YDAJ SKIN LESIONS, 2 TO 4 06/25/19 85584-WTUZ SKIN LESIONS, 2 TO 4 10/01/19 Next Appt Details Provider Name:Ever Mata , 12/30/2024 01:45:00 PM, [address] [place], [address], Insurance Providers Payer Name Payer Address Payer Phone Subscriber Number Group Number Insured Name Patient Relationship to Insured Coverage Start Date Coverage End Date Medicare National Govt Svcs Inc [address] [place] [address] [id number] Peloquin, Susy Self - patient is the insured 4 [employer] Blue Shield [address] [place] [address] [phone] [id number] 2 Peloquin, Susy Self - patient is the insured Medical (General) History Medical History History ICD Code Arthritis cataracts diabetic osteoporosis cholesterol Glaucoma Measles Mumps Chicken pox Surgical History Surgery Date(Month/Year) ear surgery cataract surgery 10/2012 Hospitalization History Reason Date(Month/Year) Patient had iv yesterday for osteoporosi s. 07/09/2012
--- OUTSIDE RECORDS SUMMARY | 2024-12-16 10:31 | XMS_ITS | Patient Health Record ---
Author Organization [facility] Address [address] [place] [address] Care Team Providers Care Lean Leader Name Role Phone Lemuel LUGO Mary Jesus Primary Care Provider Un available Ruben Valdes Jr Unavailable [phone] Allergies Allergen (clinical drug ingredient) Drug/Non [...] Problem Status W/U Status Risk Notes Problem 941944019 Colon cancer screening (Z12.11) Active confirmed Problem 831158914 Long-term use of aspirin therapy (Z79.82) Active confirmed Problem 434851789 FH: colon cancer (Z80.0) Active confirmed Plan Of Treatment Future Test Test Name Order Date COLONOSCOPY 07/16/2014 COLONOSCOPY 11/30/2021 Insurance Providers Payer Name Payer Address Payer Phone Subscriber Number Group Number Insured Name Patient Relationship to Insured Coverage Start Date Coverage End Date MEDICARE OF [place] [address] [place] [id number] [phone] [id number] ARACELI KC Self - patient is the insured MEDEX ATTN CLAIMS [address] [place] [phone] [id number] ARACELI KC Self - patient is the insured Medical (General) History Medical History History ICD Code Colonoscopy 02/05/15, normal, five-year followup for family history Glaucoma diabetes mellitus elevated cholesterol Osteoporosis Anemia Ptosis Surgical History Surgery Date(Month/Year) ear surgery detached retina cataract-lens implants
== END 2024-12-16 10:48 | disposition home or self-care (01) ==
LOC: HO.ENCR 09:38
PROVIDERS: PCP Family Medicine; Visit Provider Registered Nurse Diabetes Educator
DX: E11.65 Type 2 diabetes mellitus with hyperglycemia (principal)

== ENCOUNTER → 2024-12-16 09:38 | Outpatient (BNVA) | payer MEDICARE, SELFPAY | PROVIDERS: PCP Family Medicine; Visit Provider Registered Nurse Diabetes Educator | DX: E11.65 Type 2 diabetes mellitus with hyperglycemia (principal); Z79.4 Long term (current) use of insulin | CPT/HCPCS: 99211 ==

== ENCOUNTER 2024-12-30 12:32 | Outpatient (AMB) | payer MEDICARE, SELFPAY ==
[2024-12-30 12:37] VITALS: BP 110/58; PULSE 77; O2SAT 98; BMI 19.7
--- NOTE | 2024-12-30 12:37 | MHC.OFFVIS ---
Vital Signs 12/30/24 12:37 Height 4 ft 9.99 in Weight 94 lb 2.198 oz BMI 19.7 BP 110/58 L Blood Pressure Location Rt brachial Position Sitting Pulse 77 Pulse Source Pulse Oximeter Pulse Oximetry (%) 98 Oxygen Delivery Method Room Air Intake Visit Reasons: Osteoporosis Intake Note: Patient present today for osteoporosis follow up. Patient would like to talk about her calcium today. Equalizer Operator Required: No Accompanied by: Self / Same As Patient Allergies penicillin V Allergy (Unknown, Verified 12/30/24 12:45) Unknown empagliflozin (From Jardiance) Adverse Reaction (Intermediate, Verified 12/30/24 12:45) uti Medication List - Last Reconciled 12/30/24 by Henry Lynch MD acarbose 25 mg PO BID 30 days [accu-check As directed] atorvastatin 40 mg PO DAILY blood sugar diagnostic (Accu-Chek Guide test strips) As directed twice a day blood-glucose meter As directed blood-glucose meter (Accu-Chek Guide Glucose Meter) Use daily As directed to monitor blood glucose blood-glucose sensor (HOME[employer]IS LABSStyle Susan 3 Plus Sensor device) Use daily As directed to monitor glucose calcium citrate-vitamin D3 200 mg-6.25 mcg (250 unit) (Citracal-D3 Petites) 2 tabs PO TID 30 days [diabetic shoes extra depth orthopedic shoes ( 1 pair ) with customize heat molded multi density inner soles ( 3 pair) Dispense 1 Sig: As directed DX: And IDDM /polyneuropathy ( E11 0.42 ); hammertoe foot deformity ( M 20.41, and 20.42 ) pre ulcerative skin lesion ( L 85.1 ) Diagnosis ( E11 0.42 ) type 2 diabetes with polyneuropathy] dorzolamide-timolol 22.3-6.8 mg/mL 1 drp ophthalmic (eye) BID ferrous sulfate 325 mg PO DAILY lancing device with lancets (Accu-Chek FastClix Lancing Device kit) As directed pen needle, diabetic As directed daily romosozumab-aqqg (Evenity) 210 mg (2.34 mL) subcut .qmonthly sitagliptin phos-metformin 50-1,000 mg ER (Janumet XR) 1 tab PO DAILY vit C,B-Na-mfmki-lutein-zeaxan 250-90-40-1 mg 1 cap PO BID HPI Comments Details: 73 YO Female with PMHx Osteoporosis who is seen in F/U for the same. First diagnosed with Osteoporosis in 2005 with her first DEXA revealing severe Osteoporosis of the spine and the hip. She underwent evaluation for secondary causes of Osteoporosis which were WNL, but it does not appear a 24 hour urine has ever been completed.. Subsequently was found to be normal She initially was started on treatment with oral bisphosphonates, and even received 1 dose of IV Reclast. She was then started on Forteo by Dr. Rowe in 2013, and completed a 2 year course of this. She was switched to Prolia as of 07/2015 and has continued on this ever since. Her last dose 07/17/2022 No history of pathologic fracture or ONJ. Has 4 servings of dietary calcium per day in the form of milk and yogurt. Does not take a Calcium supplement. Does not take a separate Vitamin D supplement. Denies ever using PPI, anticoagulant, antiepileptic or glucocorticoid medication. Does weight bearing exercise 2 days per week in the form of resistance training. 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 Menses were always regular. . Menopause was age 52. She did not use HRT. Denies history of Kidney stones. Denies family history of Osteoporosis or hip fracture. UTD on dental cleanings and sees dentist every 6 months. No planned upcoming dental work or extractions. DXA dated: 10/04/2021 FINDINGS: AP SPINE L1-L4: Current: BMD 0.880 g/cm2, Z-score -0.1, T-score -2.5, osteoporosis, 2.1% increase from previous, 10.8% increase from baseline (<5% change is not significant). Prior: BMD 0.862 g/cm2. Baseline: BMD 0.794 g/cm2. LEFT FEMUR, NECK: Current: BMD 0.649 g/cm2, Z-score -0.5, T-score -2.8, osteoporosis. Prior: BMD 0.610 g/cm2. Baseline: BMD 0.540 g/cm2. LEFT FEMUR, TOTAL: Current: BMD 0.761 g/cm2, Z-score 0.1, T-score -2.0, osteopenia, 3.1% increase from previous, 7.5% increase from baseline (<5% change is not significant). Prior: BMD 0.738 g/cm2. Baseline: BMD 0.708 g/cm2. Labs: Laboratory Tests 04/08/21 04/08/21 05/20/21 11:40 11:40 08:30 Creatinine Estimated GFR N-Telopeptide X-linked 25-OH Vitamin D Total PTH Intact Calcium (PTH Intact) Ur 24 Hour Volume 2075 Ur Creatinine 24 Hour 0.48 L Ur Calcium 24 Hr 62 77 05/20/21 08/31/21 08/31/21 08:30 10:12 10:12 Creatinine 0.80 Estimated GFR > 60 N-Telopeptide X-linked 25-OH Vitamin D Total PTH Intact Pending Calcium (PTH Intact) Pending Ur 24 Hour Volume 2325 Ur Creatinine 24 Hour 0.6 L Ur Calcium 24 Hr 12/06/21 12/06/21 12/06/21 07:50 09:31 09:31 Creatinine 0.73 Estimated GFR > 60 N-Telopeptide X-linked 18 25-OH Vitamin D Total 50.5 PTH Intact 44 Calcium (PTH Intact) 9.2 Ur 24 Hour Volume Ur Creatinine 24 Hour Ur Calcium 24 Hr Recent DEXA shows significant declines in spine and hip. Patient is currently on calcium and vitamin-D supplementation as well as Evenity started 04/21/24 The patient is a 73-year-old female presenting for the evaluation and management of osteoporosis. She is currently undergoing treatment with a Evenity intended for a one-year trial period, following previous inadequate responses to Reclast and Forteo and Prolia . She is currently on Evenity since 03/2024 . No fx since last visit. Tolerating Evenity nicely [facility] Medical History Anemia Glaucoma Vitamin D deficiency Dyslipidemia Osteoporosis Diabetic nephropathy associated with type 2 diabetes mellitus Diabetes type 2, uncontrolled Surgical History Hx of eye surgery Hx of cataract extraction H/O colonoscopy History of ear surgery Family History Father Heart disease Mother CHF (congestive heart failure) Social History Household Members: None Alcohol intake: never Patient Tobacco Use Status: Never used Tobacco service: No Current occupational status: retired Physical Exam Vital Signs: Last Vital Signs Pulse 77 12/30/24 12:37 BP 110/58 L 12/30/24 12:37 Pulse Ox 98 12/30/24 12:37 Oxygen Delivery Method Room Air 12/30/24 12:37 BMI result Body Mass Index 19.7 Assessment & Plan Assessment & Plan (1) Osteoporosis: Code(s): M81.0 - Age-related osteoporosis without current pathological fracture Category: Medical Plan: 73 yo female with a history of Osteoporosis, which was quite severe.? She did have significant gains in her BMD with Forteo, and bones have remained stable.? Was treated with Prolia and transition to a dose of Reclast She has not had a recent fracture. She then transition to Evenity which she is taking since 04/2024 .? The plan is to continue the Evenity until 04/2025 then transition back to Prolia considering the very low bone density prior to starting Evenity. We will repeat DEXA in 01/2026 The patient had an opportunity to ask questions regarding treatment plan. The patient expressed understanding and agreement with the above treatment plan. Patient was informed and verbally consented to the use of an ambient scribe for clinic note documentation during this visit. Orders: Orders Calcium 2 Months M81.0 - Age-related osteoporosis without current pathological fracture Basic Metabolic Panel 2 Months M81.0 - Age-related osteoporosis without current pathological fracture Albumin Level 2 Months M81.0 - Age-related osteoporosis without current pathological fracture Coding Level of Care Code Est Pt Level 3 (00847) Diagnoses Osteoporosis M81.0
--- OUTSIDE RECORDS SUMMARY | 2024-12-30 15:11 | XMS_ITS | Patient Health Record ---
Author Organization [facility] Address [address] [place] [address] Care Team Providers Care Assistant Manager Trainee Name Role Phone Lemuel LUGO Mary Jesus [...] at 5:00 p.m. the day before the procedure; Duration: 1 day 11/30/2021 Active Janumet 50-500 MG 1 tablet with meals Orally Twice a day; Duration: 30 day(s) Active Multi Vitamin/Minerals 1 1 Orally QD Active Welchol 625 MG 3 tablets with meals Orally Twice a day; Duration: 30 day(s) Active Immunizations Vaccine Route Administration Date Status Comme nts Flu vaccine no Preserv 3 and > Unknown 12/30/2013 Admin istered Influenza Unknown 02/08/2021 Administered Problems Problem Type SNOMED Code ICD Code Onset Dates Problem Status W/U Status Risk Notes Problem Colon cancer screening (269586570) Colon cancer screening (Z12.11) Active confirmed Problem Long-term current use of antiplatelet drug (775025486947893) Long-term use of aspirin therapy (Z79.82) Active confirmed Problem Family history of malignant neoplasm of gastrointestinal tract (890127186) FH: colon cancer (Z80.0) Active confirmed Plan Of Treatment Future Test Test Name Order Date COLONOSCOPY 07/16/2014 COLONOSCOPY 11/30/2021 Insurance Providers Payer Name Payer Address Payer Phone Subscriber Number Group Number Insured Name Patient Relationship to Insured Coverage Start Date Coverage End Date MEDICARE OF [place] [address] [place] [address] [phone] [id number] ARACELI KC Self - patient is the insured MEDEX ATTN CLAIMS [address] [place] [address] [id number] 2 ARACELI KC Self - patient is the insured Medical (General) History Medical History History ICD Code Colonoscopy 02/05/15, normal, five-year followup for family history Glaucoma diabetes mellitus elevated cholesterol Osteoporosis Anemia Ptosis Surgical History Surgery Date(Month/Year) ear surgery detached retina cataract-lens implants
--- OUTSIDE RECORDS SUMMARY | 2024-12-30 15:12 | XMS_ITS | Patient Health Record ---
Author Organization [facility] ariella [place] Address [address] [place] [address] Care Team Providers Care Drupal Web Developer Name Role Phone Marin SHAIKH, Bal Primary Care Provider Ever Montano Unavailable [phone] Allergies Allergen (clinical drug ingredient) Drug/Non Drug [...] Problem Acquired hammer toe of right foot (0447593815781 105) Other hammer toe(s) (acquired), right foot (M20.41) Active confirmed Problem Type 2 diabetes mellitus with peripheral angiopathy (752690600) Type 2 diabetes mellitus with diabetic peripheral angiopathy without gangrene (E11.51) Active confirmed Q7(A), Q8(2B), Q9(1B,2C) Problem Acquired hammer toe of left foot (3829576419626 103) Other hammer toe(s) (acquired), left foot (M20.42) Active confirmed Vital Signs Blood pressure diastolic 65 mm Hg 09/30/2024 Height 4 ft 11 in in 09/30/2024 Blood pressure systolic 128 mm Hg 09/30/2024 Weight 98 lbs 09/30/2024 BMI 19.79 kg/m2 09/30/2024 Procedures Procedure Date Ordered Date Performed Result Body Sit e 58136-TTQTMPS NAIL, 6 OR MORE 06/24/2024 N/A 35042-PYMA SKIN LESIONS, 2 TO 4 06/24/2024 N/A 46078-RMEAFVQ NAIL, 6 OR MORE 09/30/2024 N/A 17715-ARNW SKIN LESIONS, 2 TO 4 09/30/2024 N/A Encounters Encounter Location Date Provider Diagnosis [facility] [place] [address] [place] [address] 06/24/2024 Ever Mata Type 2 diabetes mellitus with diabetic peripheral angiopathy without gangrene E11.51 ; Tinea unguium B35.1 ; Pain in right toe(s) M79.674 ; Pain in left toe(s) M79.675 ; Other hammer toe(s) (acquired), left foot M20.42 and Other hammer toe(s) (acquired), right foot M20.41 [facility] [address] [address] 09/30/2024 Ever Mata Type 2 diabetes mellitus with diabetic peripheral angiopathy without gangrene E11.51 ; Other hammer toe(s) (acquired), right foot M20.41 ; Tinea unguium B35.1 ; Pain in right toe(s) M79.674 ; Pain in left toe(s) M79.675 and Other hammer toe(s) (acquired), left foot M20.[address] [facility] [address] 04/14/2024 Ever Mata [address] [address] 07/14/2024 Ever Adolfo [address] [address] 12/16/2024 Ever Mata Assessments Encounter Date Diagnosis (ICD [...] Treatment Pending Test Test Name Order Date 63670-TRCVBGO NAIL, 6 OR MORE 08/09/2012 86494-HVZKJWD NAIL, 6 OR MORE 12/31/2012 21265-HXVDPRO NAIL, 6 OR MORE 10/17/2016 48411-ANLXKPA NAIL, 6 OR MORE 11/27/2017 89038-PVRAIFC NAIL, 6 OR MORE 02/26/2018 30007-WHUGVPT NAIL, 6 OR MORE 05/28/2018 46047-QVTQCRE NAIL, 6 OR MORE 08/30/2018 08303-DDJQBEI NAIL, 6 OR MORE 12/06/2018 49792-RVFHALQ NAIL, 6 OR MORE 08/28/2017 32241-HRWDLAJ NAIL, 6 OR MORE 04/08/2019 68121-VGMEWRD NAIL, 6 OR MORE 06/24/2024 26876-LKJCJLN NAIL, 6 OR MORE 09/30/2024 98596-Tjxvpssn Plate 10/17/2016 74957-Iktocsok Plate 11/27/2017 73228-Lqbsdbsy Plate 12/06/2018 14656-Ghtqizkc Plate 08/28/2017 84169-Ceglbbai Plate 08/09/2012 60567-Nhciviyu Plate 12/31/2012 22539-Ifbnhyuv Plate Each Additional 05049- Debride <25 sq cm 12/31/2012 99477-HRYV SKIN LESIONS, 2 TO 4 06/25/19 74707-FCEG SKIN LESIONS, 2 TO 4 10/01/19 Next Appt Details Provider Name:Elaina huang, 02/19/2025 10:00:00 AM, [address] [place], [address], Insurance Providers Payer Name Payer Address Payer Phone Subscriber Number Group Number Insured Name Patient Relationship to Insured Coverage Start Date Coverage End Date Medicare National Govt [facility] [address] [place] [address] [id number] Peloquin, Susy Self - patient is the insured 4 Medex Blue Shield [address] [place] [address] [phone] [id number] 2 Peloquin, Susy Self - patient is the insured Medical (General) History Medical History History ICD Code Arthritis cataracts diabetic osteoporosis cholesterol Glaucoma Measles Mumps Chicken pox Surgical History Surgery Date(Month/Year) ear surgery cataract surgery 10/2012 Hospitalization History Reason Date(Month/Year) Patient had iv yesterday for osteoporosi s. 07/09/2012
== END 2024-12-30 13:27 | disposition home or self-care (01) ==
LOC: HO.ENCR 12:33
PROVIDERS: PCP Family Medicine; Visit Provider Internal Medicine Endocrinology, Diabetes & Metabolism
DX: M81.0 Age-related osteoporosis without current pathological fracture (principal)
CPT/HCPCS: 99213

== ENCOUNTER → 2024-12-30 12:32 | Outpatient (BNVA) | payer MEDICARE, SELFPAY | PROVIDERS: PCP Family Medicine; Visit Provider Internal Medicine Endocrinology, Diabetes & Metabolism | DX: M81.0 Age-related osteoporosis without current pathological fracture (principal) | CPT/HCPCS: 99212 ==

== ENCOUNTER 2025-01-05 10:50 | Outpatient (AMB) | payer MEDICARE, SELFPAY ==
--- NOTE | 2025-01-05 11:12 | AM.OFFVISNUR ---
Intake Visit Reasons: Evenity #11 Allergies penicillin V Allergy (Unknown, Verified 01/05/25 10:24) Unknown empagliflozin (From Jardiance) Adverse Reaction (Intermediate, Verified 01/05/25 10:24) uti Office Meds romosozumab-aqqg 210 mg/2.34 mL(105 mg/1.17 mL x2)subcutaneous syringe Performing Provider: Henry Lynch MD [place] [facility] Administered by: Suzan Melendez RN on 01/05/25 11:12 Dose Route Admin Location Dispensed Lot Number Expiration Date NDC [employer] Specialist Manager 210 mg subcut bilateral upper arms 2.34 mL [id number] 01/16/27 04025-900-38 AMGEN Total Dispensed Waste 2.34 mL 0 % Comments: Patient tolerated injection well. Patient denies any adverse reactions with previous injections. Patient scheduled for last injection in x4 weeks. Patient aware we will have her complete labs prior to her prolia injection. Assessment & Plan Assessment & Plan Orders: Orders AMB Romosozumab Injection Patient Supplied Today M81.0 - Age-related osteoporosis without current pathological fracture Coding
== END 2025-01-05 11:10 | disposition home or self-care (01) ==
LOC: HO.ENCR 10:50
PROVIDERS: PCP Family Medicine; Visit Provider Internal Medicine Endocrinology, Diabetes & Metabolism
DX: M81.0 Age-related osteoporosis without current pathological fracture (principal)

== ENCOUNTER → 2025-01-05 10:50 | Outpatient (BNVA) | payer MEDICARE, SELFPAY | PROVIDERS: PCP Family Medicine; Visit Provider Internal Medicine Endocrinology, Diabetes & Metabolism | DX: M81.0 Age-related osteoporosis without current pathological fracture (principal) | CPT/HCPCS: 96372; J3111 ==

== ENCOUNTER 2025-01-26 09:02 | Outpatient (REF) | payer MEDICARE, SELFPAY ==
--- NOTE | ~2025-01-26 | MM_ITS ---
EXAMINATION(S): 1. MM DIAGNOSTIC DIGITAL BREAST TOMOSYNTHESIS, RIGHT 2. TARGETED ULTRASOUND OF THE RIGHT BREAST CLINICAL INFORMATION: This is a 6-month follow-up of right breast asymmetry in the superior breast posterior depth seen on MLO view and right breast solid mass or complicated cyst at 9 o'clock position 6 cm from the nipple seen on the ultrasound. COMPARISON: right diagnostic mammogram/ultrasound on July 25, 2024 and the screening mammogram on June 12, 2024 TECHNIQUE: Digital breast tomosynthesis is performed in full-field MLO view along with computer-aided detection (CAD). Synthesized 2D images are generated from the tomosynthesis. FINDINGS: BREAST COMPOSITION: The breasts are heterogeneously dense, which may obscure small masses. RIGHT BREAST: Asymmetry in the upper breast posterior depth is unchanged from prior studies in May and July 2024. Targeted ultrasound of the right breast was performed at the location of the previously described sonographic finding. The survey shows a 0.2 x 0.2 x 0.2 cm hypoechoic solid mass or complicated cyst at 9 o'clock position 6 cm from the nipple. Prior sonographic measurements of 0.5 x 0.4 x 0.4 cm in July 2024. No internal vascularity demonstrated with color Doppler evaluation. MM/MM tomosynthesis diagnostic RT IMPRESSION: RIGHT BREAST: -Asymmetry in the upper breast posterior depth on the MLO view, unchanged from July 2024. Probably benign. A 6-month follow-up mammogram is recommended as bilateral diagnostic mammogram. -Interval decrease in size of the solid mass or complicated cyst at 9 o'clock position 6 cm from the nipple. Probably benign. A 6-month follow-up ultrasound is recommended. ASSESSMENT: BI-RADS: Category 3: Probably benign RECOMMENDATION: 6 Month F/U Results were provided to the patient at time of visit by the technologist. This patient's information was entered into a reminder system with a target due date for their next mammogram. Electronically signed by: Marco Antonio Enriquez MD 01/26/2025 10:52 AM [facility]
--- OUTSIDE RECORDS SUMMARY | 2025-01-26 09:38 | XMS_ITS | Patient Health Record ---
Author Organization [facility] ariella [place] Address [address] [place] [address] Care Team Providers Care Silk Screen Printer Name Role Phone Marin SHAIKH, Bal Primary Care Provider Ever Montano Unavailable [phone] Allergies Allergen (clinical drug ingredient) Drug/Non Drug [...] Problem Acquired hammer toe of right foot (8083735498776 105) Other hammer toe(s) (acquired), right foot (M20.41) Active confirmed Problem Type 2 diabetes mellitus with peripheral angiopathy (097921409) Type 2 diabetes mellitus with diabetic peripheral angiopathy without gangrene (E11.51) Active confirmed Q7(A), Q8(2B), Q9(1B,2C) Problem Acquired hammer toe of left foot (6172275279264 103) Other hammer toe(s) (acquired), left foot (M20.42) Active confirmed Vital Signs Blood pressure diastolic 65 mm Hg 09/30/2024 Height 4 ft 11 in in 09/30/2024 Blood pressure systolic 128 mm Hg 09/30/2024 Weight 98 lbs 09/30/2024 BMI 19.79 kg/m2 09/30/2024 Procedures Procedure Date Ordered Date Performed Result Body Sit e 13479-HYXCHII NAIL, 6 OR MORE 06/24/2024 N/A 30007-CZCY SKIN LESIONS, 2 TO 4 06/24/2024 N/A 64190-PDFCBDD NAIL, 6 OR MORE 09/30/2024 N/A 29405-ZDIA SKIN LESIONS, 2 TO 4 09/30/2024 N/A Encounters Encounter Location Date Provider Diagnosis [facility] [place] [address] [place] [address] 06/24/2024 Ever Mata Type 2 diabetes mellitus with diabetic peripheral angiopathy without gangrene E11.51 ; Tinea unguium B35.1 ; Pain in right toe(s) M79.674 ; Pain in left toe(s) M79.675 ; Other hammer toe(s) (acquired), left foot M20.42 and Other hammer toe(s) (acquired), right foot M20.[address] [facility] [address] [address] 09/30/2024 Ever Mata Type 2 diabetes mellitus with diabetic peripheral angiopathy without gangrene E11.51 ; Other hammer toe(s) (acquired), right foot M20.41 ; Tinea unguium B35.1 ; Pain in right toe(s) M79.674 ; Pain in left toe(s) M79.675 and Other hammer toe(s) (acquired), left foot M20.[address] [facility] [address] 04/14/2024 Ever Mata [address] [address] 07/14/2024 Ever Adolfo [address] [address] 12/16/2024 Ever Mata Assessments Encounter Date Diagnosis [...] Treatment Pending Test Test Name Order Date 01928-TQQGBZC NAIL, 6 OR MORE 08/09/2012 90709-HTRYSAG NAIL, 6 OR MORE 12/31/2012 47373-QIRILKR NAIL, 6 OR MORE 10/17/2016 76256-DBFOVZG NAIL, 6 OR MORE 11/27/2017 63306-FTTZPXB NAIL, 6 OR MORE 02/26/2018 48959-JUBCDXS NAIL, 6 OR MORE 05/28/2018 46976-SZHOMTN NAIL, 6 OR MORE 08/30/2018 13220-NVBBCTL NAIL, 6 OR MORE 12/06/2018 47441-OQHGQNA NAIL, 6 OR MORE 08/28/2017 74462-RTICBXE NAIL, 6 OR MORE 04/08/2019 40374-NTRESFK NAIL, 6 OR MORE 06/24/2024 61890-OIGNTTI NAIL, 6 OR MORE 09/30/2024 67883-Omahoubu Plate 10/17/2016 19642-Mtqltxor Plate 11/27/2017 36822-Vpolrzqk Plate 12/06/2018 11285-Bbrolrsh Plate 08/28/2017 48080-Jkxhojld Plate 08/09/2012 11573-Mxfbutlx Plate 12/31/2012 95880-Frlteyfd Plate Each Additional 91859- Debride <25 sq cm 12/31/2012 64403-EHZJ SKIN LESIONS, 2 TO 4 06/25/19 75928-MSFL SKIN LESIONS, 2 TO 4 10/01/19 Next Appt Details Provider Name:Elaina huang, 02/19/2025 10:00:00 AM, [address] [place], [address], Insurance Providers Payer Name Payer Address Payer Phone Subscriber Number Group Number Insured Name Patient Relationship to Insured Coverage Start Date Coverage End Date Medicare National Govt [facility] [address] [place] [address] [id number] Peloquin, Susy Self - patient is the insured 4 Medex Blue Shield [address] [place] [address] [phone] [id number] Peloquin, Susy Self - patient is the insured Medical (General) History Medical History History ICD Code Arthritis cataracts diabetic osteoporosis cholesterol Glaucoma Measles Mumps Chicken pox Surgical History Surgery Date(Month/Year) ear surgery cataract surgery 10/2012 Hospitalization History Reason Date(Month/Year) Patient had iv yesterday for osteoporosi s. 07/09/2012
== END 2025-01-26 09:03 | disposition home or self-care (01) ==
LOC: HO.MAMMO 09:02
PROVIDERS: PCP Family Medicine; Visit Provider Family Medicine
DX: N64.89 Other specified disorders of breast (principal)
CPT/HCPCS: 76642; 77061; 77065

== ENCOUNTER → 2025-01-26 09:30 | Outpatient (BNV) | payer MEDICARE, SELFPAY | PROVIDERS: PCP Family Medicine; Visit Provider Radiology Body Imaging | DX: R92.8 Other abnormal and inconclusive findings on diagnostic imaging of breast (principal) | CPT/HCPCS: 76642; 77065; G0279 ==

== ENCOUNTER 2025-02-06 10:48 | Outpatient (AMB) | payer MEDICARE, SELFPAY ==
--- OUTSIDE RECORDS SUMMARY | 2024-12-30 08:45 | XMS_ITS ---
Author Organization [facility] Address [address] [place] [address] Care Team Providers Care Class C Driver Name Role Phone Marin SHAIKH, Bal Primary Care Provider UnaEver Soliz Unavailable [phone] Encounters Encounter Location Date Provider Diagnosis [address] [address] 12/30/2024 Ever Mata Plan Of Treatment Next Appt Details Provider Name:Elaina huang, 02/19/2025 10:00:00 AM, [address] [place] [address], [address], Progress Notes * Susy KC ADOB: (74 yo F)Acc No.[id number]:12/30/2024 Progress Note Patient: Elvira NATHscilla Vidal Provider: Bro Mata DPM :1950 A ge:74 Y S ex:Female Date:12/30/2024 Address:[address] [facility], [address] , [place], [place] Pcp:Bal Funes MD Subjective: * Chief Complaints: * * Medical History: Objective: * Vitals: Assessment: Plan: * Treatment: * Images: * The named appointment provid er may or may not be the originator of this progress note, and it is not deemed complete until electronically signed by the appointment provider. Sign off status: Pending * Provider: Bro Mata DPM Date: 1 Generated for Lucinda Villegas on: 04/08/2024 11:36 AM EST
--- NOTE | 2025-02-06 11:26 | AM.OFFVISNUR ---
Intake Visit Reasons: Evenity #12 Allergies penicillin V Allergy (Unknown, Verified 01/05/25 10:24) Unknown empagliflozin (From Jardiance) Adverse Reaction (Intermediate, Verified 01/05/25 10:24) uti Office Meds romosozumab-aqqg 210 mg/2.34 mL(105 mg/1.17 mL x2)subcutaneous syringe Performing Provider: Henry Lynch MD Performing Location: [facility] [place] [facility] Administered by: Becca Magallanes RN on 02/06/25 11:10 Dose Route Admin Location Dispensed Lot Number Expiration Date [facility] Cobbler Upper 210 mg subcut 2.34 mL [id number] 02/15/27 62308-526-07 AM[facility] Total Dispensed Waste 2.34 mL 0 % Comments: No adverse reactions reported from previous injection. Pt tolerated injection well. Pt informed that she will be transitioning to prolia. Pt confirmed understanding with no further questions at this time. Assessment & Plan Assessment & Plan Orders: Orders AMB Romosozumab Injection Patient Supplied Today M81.0 - Age-related osteoporosis without current pathological fracture Coding
--- OUTSIDE RECORDS SUMMARY | 2025-02-06 11:37 | XMS_ITS | Patient Health Record ---
Author Organization [facility] ariella [place] Address [address] [place] [address] Care Team Providers Care Oyster Bed Worker Name Role Phone Marin SHAIKH, Bal Primary Care Provider Ever Montano Unavailable [phone] Allergies Allergen (clinical drug ingredient) Drug/Non Drug [...] Orally Once a day; Duration: 30 day(s) Not-Eas ing Extra Depth Orthopedic Shoes, (1) Pair [...] Problem Acquired hammer toe of right foot (4851164679268 105) Other hammer toe(s) (acquired), right foot (M20.41) Active confirmed Problem Type 2 diabetes mellitus with peripheral angiopathy (552203733) Type 2 diabetes mellitus with diabetic peripheral angiopathy without gangrene (E11.51) Active confirmed Q7(A), Q8(2B), Q9(1B,2C) Problem Acquired hammer toe of left foot (2048189551811 103) Other hammer toe(s) (acquired), left foot (M20.42) Active confirmed Vital Signs Blood pressure diastolic 65 mm Hg 09/30/2024 Height 4 ft 11 in in 09/30/2024 Blood pressure systolic 128 mm Hg 09/30/2024 Weight 98 lbs 09/30/2024 BMI 19.79 kg/m2 09/30/2024 Procedures Procedure Date Ordered Date Performed Result Body Sit e 40183-RAPQLXG NAIL, 6 OR MORE 06/24/2024 N/A 07080-TQHZ SKIN LESIONS, 2 TO 4 06/24/2024 N/A 11006-QSBUKVC NAIL, 6 OR MORE 09/30/2024 N/A 79334-DOTY SKIN LESIONS, 2 TO 4 09/30/2024 N/A Encounters Encounter Location Date Provider Diagnosis [facility] [place] [address] [place] [address] 06/24/2024 Ever Mata Type 2 diabetes mellitus with diabetic peripheral angiopathy without gangrene E11.51 ; Tinea unguium B35.1 ; Pain in right toe(s) M79.674 ; Pain in left toe(s) M79.675 ; Other hammer toe(s) (acquired), left foot M20.42 and Other hammer toe(s) (acquired), right foot M20.41 [facility] [address] [address] 09/30/2024 Ever Mata Type 2 diabetes mellitus with diabetic peripheral angiopathy without gangrene E11.51 ; Other hammer toe(s) (acquired), right foot M20.41 ; Tinea unguium B35.1 ; Pain in right toe(s) M79.674 ; Pain in left toe(s) M79.675 and Other hammer toe(s) (acquired), left foot M20.42 [facility] [address] 04/14/2024 Ever Mata [address] [address] 07/14/2024 Ever Adolfo [address] [address] 12/16/2024 Ever Mata Assessments Encounter Date Diagnosis [...] Treatment Pending Test Test Name Order Date 41937-CYYNXVA NAIL, 6 OR MORE 08/09/2012 50833-JHAYCRX NAIL, 6 OR MORE 12/31/2012 81916-FAMSQFP NAIL, 6 OR MORE 10/17/2016 40692-MKCDTSC NAIL, 6 OR MORE 11/27/2017 01785-KGCRXFG NAIL, 6 OR MORE 02/26/2018 23269-NQHAZFO NAIL, 6 OR MORE 05/28/2018 15002-MJQMQOC NAIL, 6 OR MORE 08/30/2018 60968-CTIHRET NAIL, 6 OR MORE 12/06/2018 23127-HUMLBXB NAIL, 6 OR MORE 08/28/2017 26993-MWWVHSE NAIL, 6 OR MORE 04/08/2019 23068-PUCHZLS NAIL, 6 OR MORE 06/24/2024 34177-GKRWFPT NAIL, 6 OR MORE 09/30/2024 70023-Vrvaxmsn Plate 10/17/2016 63994-Wspakpyo Plate 11/27/2017 24887-Eencyqux Plate 12/06/2018 23481-Hxucfxxk Plate 08/28/2017 24491-Ejzmgjci Plate 08/09/2012 81264-Xkvvoges Plate 12/31/2012 37305-Qvpceqye Plate Each Additional 43441- Debride <25 sq cm 12/31/2012 60376-QRFG SKIN LESIONS, 2 TO 4 06/25/19 50714-UPPC SKIN LESIONS, 2 TO 4 10/01/19 Next Appt Details Provider Name:Elaina huang, 02/19/2025 10:00:00 AM, [address] [place], [address], Insurance Providers Payer Name Payer Address Payer Phone Subscriber Number Group Number Insured Name Patient Relationship to Insured Coverage Start Date Coverage End Date Medicare National Govt [facility] [address] [place] [address] [id number] Peloquin, Susy Self - patient is the insured 4 [employer] Blue Shield [address] [place] [address] [phone] [id number] 2 Peloquin, Susy Self - patient is the insured Medical (General) History Medical History History ICD Code Arthritis cataracts diabetic osteoporosis cholesterol Glaucoma Measles Mumps Chicken pox Surgical History Surgery Date(Month/Year) ear surgery cataract surgery 10/2012 Hospitalization History Reason Date(Month/Year) Patient had iv yesterday for osteoporosi s. 07/09/2012
--- OUTSIDE RECORDS SUMMARY | 2025-02-06 11:37 | XMS_ITS | Patient Health Record ---
Author Organization [facility] Address [address] [place] [address] Care Team Providers Care Crime Prevention Police Officer Name Role Phone [place] Mary Jesus Primary Care Provider Un available Ruben Valdes Jr Unavailable [phone] Allergies Allergen (clinical drug ingredient) Drug/Non Drug Allergy documented on EMR Reaction Allergy Type Onset Date Status Penicillin Unknown Drug Allergy Active acetaminophen Midol Unknown Drug Allergy Act myles Reason For Referral No Information Medications Medication SIG (Take, Route, Frequency, Duration) Notes Start Date End Date Status Aspir-81 81 MG Tablet Delayed Release 1 tablet Orally Once a day Active Atorvastatin Calcium 40 MG Tablet 1 tablet Orally Once a day Active MiraLax (colon prep) 17 GM/SCOOP Powder mixed with Gatorade or Crystal Light Orally begin at 5:00 p.m. the day before the procedure; Duration: 1 day 11/30/2021 Active Janumet 50-500 MG Tablet 1 tablet with m eals Orally Twice a day; Duration: 30 day(s) Active Multi Vitamin/Minerals 1 Tablet 1 Orally QD Active Welchol 625 MG Tablet 3 tablets with latisha ls Orally Twice a day; Duration: 30 day(s) Active Immunizations Vaccine Route Administration Date Status Comme nts Flu vaccine no Preserv 3 and > Unknown 12/30/2013 Admin istered Influenza Unknown 02/08/2021 Administered Social History Social History Additional Details Category Social Info Options Details Miscellaneous: Marital status: single Occupation: retired Problems Problem Type SNOMED Code ICD Code Onset Dates Problem Status W/U Status Risk Notes Problem Colon cancer screening (687542496) Colon cancer screening (Z12.11) Active confirmed Problem Long-term current use of antiplatelet drug (374814505131937) Long-term use of aspirin therapy (Z79.82) Active confirmed Problem Family history of malignant neoplasm of gastrointestinal tract (897030686) FH: colon cancer (Z80.0) Active confirmed Plan Of Treatment Future Test Test Name Order Date COLONOSCOPY 07/16/2014 COLONOSCOPY 11/30/2021 Insurance Providers Payer Name Payer Address Payer Phone Subscriber Number Group Number Insured Name Patient Relationship to Insured Coverage Start Date Coverage End Date MEDICARE OF [place] [address] [place] [id number] ARACELI KC Self - patient is the insured MEDEX ATTN CLAIMS [address] [place] [address] [id number] 2 ARACELI KC Self - patient is the insured Medical (General) History Medical History History ICD Code Colonoscopy 02/05/15, normal, five-year followup for family history Glaucoma diabetes mellitus elevated cholesterol Osteoporosis Anemia Ptosis Surgical History Surgery Date(Month/Year) ear surgery detached retina cataract-lens implants
== END 2025-02-06 11:24 | disposition home or self-care (01) ==
LOC: HO.ENCR 10:48
PROVIDERS: PCP Family Medicine; Visit Provider Internal Medicine Endocrinology, Diabetes & Metabolism
DX: M81.0 Age-related osteoporosis without current pathological fracture (principal)

== ENCOUNTER → 2025-02-06 10:48 | Outpatient (BNVA) | payer MEDICARE, SELFPAY | PROVIDERS: PCP Family Medicine; Visit Provider Internal Medicine Endocrinology, Diabetes & Metabolism | DX: M81.0 Age-related osteoporosis without current pathological fracture (principal); Z79.620 Long term (current) use of immunosuppressive biologic | CPT/HCPCS: 96372; J3111 ==

== ENCOUNTER 2025-03-02 11:03 | Outpatient (REF) | payer MEDICARE, SELFPAY ==
[2025-03-02 12:02] LABS: Albumin Level 4.3 g/dL (3.5-5.0); Anion Gap 11 (12-20); Blood Urea Nitrogen 19 mg/dL (9-16); Calcium 9.3 mg/dL (8.4-10.2); Carbon Dioxide 27 mmol/L (22-29); Chloride 102 mmol/L (96-108); Estimated Glomerular Filt Rate > 60; Potassium 4.2 mmol/L (3.3-5.1); Sodium 136 mmol/L (135-145)
== END 2025-03-02 11:04 | disposition home or self-care (01) ==
LOC: HO.LAB 11:03
PROVIDERS: PCP Family Medicine; Visit Provider Internal Medicine Endocrinology, Diabetes & Metabolism
DX: M81.0 Age-related osteoporosis without current pathological fracture (principal)
CPT/HCPCS: 36415; 80048; 82040

== ENCOUNTER 2025-03-05 09:32 | Outpatient (AMB) | payer MEDICARE, SELFPAY ==
--- OUTSIDE RECORDS SUMMARY | 2024-12-30 08:45 | XMS_ITS ---
Author Organization [facility] Address [address] [place] [address] Care Team Providers Care Experience Designer Name Role Phone Marin SHAIKH, Bal Primary Care Provider UnaEver Soliz Unavailable [phone] Encounters Encounter Location Date Provider Diagnosis [address] [address] 12/30/2024 Ever Mata Plan Of Treatment Next Appt Details Provider Name:Ever Mata , 03/10/2025 01:00:00 PM, [address] [place] [address], [phone], Progress Notes * Susy KC ADOB: (74 yo F)Acc No.[id number]:12/30/2024 Progress Note Patient: Elvira NATHscbalwinder Drake Provider: Bro Mata DPM :1950 A ge:74 Y S ex:Female Date:12/30/2024 Address:[address] [facility], [address] , [place], [place] Pcp:Bal Funes MD Subjective: * Chief Complaints: [...] Mata DPM Date: 1 Generated for Lucinda brothers/Ghada on: 1 05/06/2024 11:01 AM EST
--- OUTSIDE RECORDS SUMMARY | 2025-02-19 05:00 | XMS_ITS ---
Author Organization [facility] [place] Address [address] [place] [address] Care Team Providers Care Heading And Priming Operator Name Role Phone Marin SHAIKH, Bal Primary Care Provider Ever Montano Unavailable [phone] Elaina López Unavailable [phone] Allergies Allergen (clinical drug ingredient) Drug/Non Drug Allergy documented on EMR Reaction Allergy Type Onset Date Status amoxicillin Amoxicillin hives Drug Allergy Act myles acetaminophen Midol Unknown Drug Allergy Act myles Penicillin hives Drug Allergy Active aspirin Aspirin Unknown Drug Allergy Active Medications Medication SIG (Take, Route, Frequency, Duration) Notes Start Date End Date Status glipiZIDE 10 MG 1 tablet Orally Once a day; Duration: 30 day(s) Unknown Invokana Unknown Travatan Z Not-Takin g Azopt Not-Taking Magnesium 300 MG 1 capsule with a latisha l Orally Once a day; Duration: 30 day(s) Not-Taking Multi Vitamin/Minerals as directed Orally Not-Taking Aspirin 81 MG 1 tablet Orally Once a day; Duration: 30 day(s) Not-Esa ing Atorvastatin Calcium 10 MG 1 tablet Orally Once a day; Duration: 30 day(s) Not-Esa ing Extra Depth Orthopedic Shoes, (1) Pair With (3) Pair Custom Heat Molded Multidensity Innersoles Dx: NIDDM/PVD(E11.51), Hammertoe Foot Deformity(M20.41,M20.42) , Preulcerative Skin Lesion(s)(L85.1) Wear Daily; Duration: 365 days 06/24/2024 Active Citracal Plus as directed Orally Not-Taking Janumet XR Active Daily Vitamins for Women Active Calcium Active Iron Active Social History Tobacco Use: Social History Observation [...] ast year? No Points 0 Interpretation Negative Encounters Encounter Location Date Provider Diagnosis [facility] [address] [address] 02/19/2025 Elaina López Plan Of Treatment Next Appt Details Provider Name:Ever Mata , 03/10/2025 01:00:00 PM, [address] [place] [address], [phone], Progress Notes * Susy KC ADOB: (74 yo F)Acc No.[id number]:02/19/2025 Progress Note Patient: Susy NATH A Provider: Ginna López DPM :1950 A ge:74 Y S ex:Female Date:02/19/2025 Address:[address] [place] [address], [facility] [address] [facility] Pcp:Bal Funes MD Subjective: * Chief Complaints: * * ROS: G eneral/Constitutional: Nausea d enies. V omiting d enies. H arthur Thirst d enies. L oss appetite d enies. C hills d enies. F atigue d enies.?Fever d enies. N ight Sweats d enies. U nexplained weight loss a dmits. U nexplained weight gain d enies. H EENTM: Dentures d enies. D izziness d enies. G lasses/contacts a dmits. R etinopathy d enies. B lurred/double vision d enies. T MJ?denies. D ischarge/drainage d enies. I mplants d enies. S ore throat d enies. D ental implants d enies. H vaibhav of hearing d enies. D ifficulty chewing/swallowing/speaking d enies. N ose bleeds d enies. S ore mouth d enies. ? R espiratory: On Oxygen d enies. P neumonia/pleurisy d enies.?Bronchitis d enies. E mphysema d enies. C oughing d enies. C ough blood?denies. S hortness of breath d enies. W heezing d enies. C ardiovascular: Pacemaker d enies. M JEWELRY CONSULTANT d enies. W PW d enies. C HF d enies. H eart attack d enies. S eptal defect d enies. R apid beat d enies. C hest pain d enies. A trial Fib. d enies. M urmur/Palpitations d enies. G astrointestinal: Hemorrhoids d enies. S tomach/Abdominal pain d enies. D ark blood stool d enies. I rritable bowel d enies. C onstipation d enies. D iarrhea d enies. H ematology: Swelling a dmits. C lots d enies. V aricose Veins d enies. B ruising d enies. B leeding problem d enies. G enitourinary: Blood urine d enies. F requent/Painfu/urination/bladder control d enies. K idney stones d enies. I nfection (UTI) d enies. N ephropathy d enies. s ex trans dis (STD) d enies. P rostate d enies. M usculoskeletal: Hammertoes a dmits. B unions d enies. B ack Pain d enies. M uscle Cramps/ Resting d enies. M uscle cramps / walking d enies.?Generalized aches and pains d enies. W eakness d enies. I nteg.: Pollock d enies. S cars d enies. C orns/calluses?admits. I ngrown nails a dmits. P ainful nails a dmits. O pen Sores d enies. R ashes d enies. N eurologic: Difficulty sleeping d enies. B rain disorder d enies. N umbness d enies. B alance trouble d enies. C onfusion d enies. F ainting/blackouts d enies. T ingling d enies. T remors d enies. * Medical History: A rthritis, Cataracts, Diabetic, Osteoporosis, Cholesterol, Glaucoma, Measles, Mumps, Chicken pox. * Surgical History: e ar surgery , cataract surgery 10/2012. * Hospitalization/Major Diagno stic Procedure: P gordy had iv yesterday for osteoporosis. 07/09/2012. * Family History: M other: , heart attack, hypertension, poor circulation, kidney/liver disease, foot problems. F ather: , cancer, heart attack, hypertension, poor circulation. S iblings: diagnosed with Diabetic - NIDDM, Unspecified heart disease. * Social History: T obacco Use: T obacco use other than smoking A re you an other tobacco user? N o Tobacco Control (Standard) T obacco use: N onsmoker A dditional Findings: Tobacco non-user C urrent nonsmoker D rugs/Alcohol: D rugs H ave you used drugs other than those for medical reasons in the past 12 months? N o M iscellaneous: C affeine: yes, frequency:, 3-5 cups per day. Children: no. Exercise: yes, walking. Marital status: single. 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 D rug/Alcohol: A HASEEB-C (Standard) D id you have a drink containing alcohol in the past year? N o P oints 0 I nterpretation N egative * Medications: T aking Iron , Taking Daily Vitamins for Women , Taking Calcium , Taking Janumet XR , Taking Extra Depth Orthopedic Shoes, (1) Pair With (3) Pair Custom Heat Molded Multidensity Innersoles . Dx: NIDDM/PVD(E11.51), Hammertoe Foot Deformity(M20.41,M20.42), Preulcerative Skin Lesion(s)(L85.1) Wear Daily , Not-Taking/PRN Aspirin 81 MG Tablet Chewable 1 tablet Orally Once a day , Not-Taking/PRN Atorvastatin Calcium 10 MG Tablet 1 tablet Orally Once a day , Not-Taking/PRN Multi Vitamin/Minerals Tablet as directed Orally , Not-Taking/PRN Citracal Plus Tablet as directed Orally , Not-Taking/PRN Magnesium 300 MG Capsule 1 capsule with a meal Orally Once a day , Not-Taking/PRN Travatan Z , Not- Taking/PRN Azopt , Unknown glipiZIDE 10 MG Tablet 1 tablet Orally Once a day , Unknown Invokana , Medication List reviewed and reconciled with the patient * Allergies: P enicillin: hives, Amoxicillin: hives, Midol, Aspirin. Objective: * Vitals: * P ast Orders: L ab:HEMOGLOBIN A1C (GLYCOHEMOGLOBIN) (Order Date - 04/21/2024) (Collection Date & Time - 06/24/2024 12:57 PM) Value Reference Range HEMOGLOBIN A1C % (HH) 8.0 Assessment: Plan: * Treatment: * Images: * The named appointment provid er may or may not be the originator of this progress note, and it is not deemed complete until electronically signed by the appointment provider. Sign off status: Pending * Provider: Ginna López DPM Date: 04/22/2024 Generated for Lucinda brothers/Kady/Jeanette on: 05/06/2024 11:02 AM EST
--- NOTE | 2025-03-05 10:17 | AM.OFFVISNUR ---
Intake Visit Reasons: Prolia Injection Allergies penicillin V Allergy (Unknown, Verified 01/05/25 10:24) Unknown empagliflozin (From Jardiance) Adverse Reaction (Intermediate, Verified 01/05/25 10:24) uti Office Meds Prolia 60 mg/mL subcutaneous syringe Performing Provider: Henry Lynch MD Performing Location: [facility] Administered by: Becca Magallanes RN on 03/05/25 09:48 Dose Route Admin Location Dispensed Lot Number Expiration Date NDC Floor Covering Printer 60 mg subcut Left upper arm 1 mL [id number] 06/17/27 91851-700-82 [employer] Total Dispensed Waste 1 mL 0 % Comments: Pt tolerated injection well. Pt stayed for 15 mins after injection for observation of adverse side effects. No adverse effects observed and pt denied any immediate reaction such as shortness of breath, difficulty breathing or itchiness. Pt was schedule for next appt in 6 months. Pt had no further questions at this time. Assessment & Plan Assessment & Plan Orders: Orders AMB Denosumab Injection Practice Supplied Today M81.0 - Age-related osteoporosis without current pathological fracture Coding
--- OUTSIDE RECORDS SUMMARY | 2025-03-05 11:02 | XMS_ITS | Patient Health Record ---
Author Organization [facility] Address [address] [place] [address] Care Team Providers Care Agate Setter Name Role Phone [place] Mary Jesus Primary Care Provider Un available Ruben Valdes Jr Unavailable [phone] Allergies Allergen (clinical drug ingredient) Drug/Non [...] Status Risk Notes Problem Colon cancer screening (902726924) Colon cancer screening (Z12.11) Active confirmed Problem Long-term current use of antiplatelet drug (226749421957666) Long-term use of aspirin therapy (Z79.82) Active confirmed Problem Family history of malignant neoplasm of gastrointestinal tract (541934670) FH: colon cancer (Z80.0) Active confirmed Plan Of Treatment Future Test Test Name Order Date COLONOSCOPY 07/16/2014 COLONOSCOPY 11/30/2021 Insurance Providers Payer Name Payer Address Payer Phone Subscriber Number Group Number Insured Name Patient Relationship to Insured Coverage Start Date Coverage End Date MEDICARE OF [place] [address] [place] [id number] ARACELI KC Self - patient is the insured MEDEX ATTN CLAIMS [address] [place] [address] [id number] ARACELI KC Self - patient is the insured Medical (General) History Medical History History ICD Code Colonoscopy 02/05/15, normal, five-year followup for family history Glaucoma diabetes mellitus elevated cholesterol Osteoporosis Anemia Ptosis Surgical History Surgery Date(Month/Year) ear surgery detached retina cataract-lens implants
--- OUTSIDE RECORDS SUMMARY | 2025-03-05 11:03 | XMS_ITS | Patient Health Record ---
Author Organization [facility] ariella [place] Address [address] [place] [address] Care Team Providers Care Prenatal Genetic Counselor Name Role Phone Marin SHAIKH, Bal Primary Care Provider Ever Montano Unavailable [phone] Elaina López Unavailable [phone] Allergies Allergen (clinical drug ingredient) Drug/Non Drug [...] Duration) Notes Start Date End Date Status Multi Vitamin/Minerals as directed Orally Not-Taking Aspirin 81 MG 1 tablet Orally Once a day; Duration: 30 day(s) Not-Esa ing Atorvastatin Calcium 10 MG 1 tablet Orally Once a day; Duration: 30 day(s) Not-Esa ing Janumet XR Active Extra Depth Orthopedic Shoes, (1) Pair With (3) Pair Custom Heat Molded Multidensity Innersoles Dx: NIDDM/PVD(E11.51), Hammertoe Foot Deformity(M20.41,M20.42) , Preulcerative Skin Lesion(s)(L85.1) Wear Daily; Duration: 365 days 06/24/2024 Active Daily Vitamins for Women Active glipiZIDE 10 MG 1 tablet Orally Once a day; Duration: 30 day(s) Unknown Calcium Active Invokana Unknown Travatan Z Not-Takin g Iron Active Azopt Not-Taking Citracal Plus as directed Orally Not-Taking Magnesium 300 MG 1 capsule with a latisha l Orally Once a day; Duration: 30 day(s) Not-Taking Immunizations Vaccine Route Administration Date Status Comme nts Influenza Unknown 01/22/2017 Administered Influenza Unknown 01/21/2018 Administered Influenza Unknown 12/11/2018 Administered Influenza Unknown 12/18/2023 Administered Influenza Unknown 12/19/2024 Administered Social History Tobacco Use: Social History [...] Problem Acquired hammer toe of right foot (6531561168770 105) Other hammer toe(s) (acquired), right foot (M20.41) Active confirmed Problem Type 2 diabetes mellitus with peripheral angiopathy (742423575) Type 2 diabetes mellitus with diabetic peripheral angiopathy without gangrene (E11.51) Active confirmed Q7(A), Q8(2B), Q9(1B,2C) Problem Acquired hammer toe of left foot (1206831065816 103) Other hammer toe(s) (acquired), left foot (M20.42) Active confirmed Vital Signs Blood pressure diastolic 65 mm Hg 09/30/2024 Height 4 ft 11 in in 09/30/2024 Blood pressure systolic 128 mm Hg 09/30/2024 Weight 98 lbs 09/30/2024 BMI 19.79 kg/m2 09/30/2024 Procedures Procedure Date Ordered Date Performed Result Body Sit e 74574-WDNSTRN NAIL, 6 OR MORE 06/24/2024 N/A 27721-QJDN SKIN LESIONS, 2 TO 4 06/24/2024 N/A 88136-MDRIFYO NAIL, 6 OR MORE 09/30/2024 N/A 36435-IFKC SKIN LESIONS, 2 TO 4 09/30/2024 N/A Encounters Encounter Location Date Provider Diagnosis [facility] [address] 06/24/2024 Ever Mata Type 2 diabetes mellitus with diabetic peripheral angiopathy without gangrene E11.51 ; Tinea unguium B35.1 ; Pain in right toe(s) M79.674 ; Pain in left toe(s) M79.675 ; Other hammer toe(s) (acquired), left foot M20.42 and Other hammer toe(s) (acquired), right foot M20.[address] [facility] [address] 09/30/2024 Ever Mata Type 2 diabetes mellitus with diabetic peripheral angiopathy without gangrene E11.51 ; Other hammer toe(s) (acquired), right foot M20.41 ; Tinea unguium B35.1 ; Pain in right toe(s) M79.674 ; Pain in left toe(s) M79.675 and Other hammer toe(s) (acquired), left foot M20.[address] [address] 04/14/[address] [address] 07/14/[address] [address] 12/16/[address] [address] 02/19/2025 Elaina López Assessments Encounter Date Diagnosis (ICD Code) Assessment [...] Treatment Pending Test Test Name Order Date 77894-YPZPVMF NAIL, 6 OR MORE 08/09/2012 70430-TXYHXYC NAIL, 6 OR MORE 12/31/2012 72254-UQZWAAP NAIL, 6 OR MORE 10/17/2016 71725-DKFHPTG NAIL, 6 OR MORE 11/27/2017 28786-RFYPQAH NAIL, 6 OR MORE 02/26/2018 06158-MGIDHNU NAIL, 6 OR MORE 05/28/2018 20019-IQMZOGV NAIL, 6 OR MORE 08/30/2018 55137-DOQDCFX NAIL, 6 OR MORE 12/06/2018 53486-UPXJHXI NAIL, 6 OR MORE 08/28/2017 95202-EDXXMUH NAIL, 6 OR MORE 04/08/2019 90288-DRPQYEA NAIL, 6 OR MORE 06/24/2024 91729-ONRILOL NAIL, 6 OR MORE 09/30/2024 75813-Dzkekhhx Plate 10/17/2016 30544-Lclhwire Plate 11/27/2017 11191-Tzuszbak Plate 12/06/2018 33812-Usuyicef Plate 08/28/2017 04594-Gdjurjlz Plate 08/09/2012 65420-Akvgecot Plate 12/31/2012 37794-Hdddgefc Plate Each Additional 08425- Debride <25 sq cm 12/31/2012 29445-KKZG SKIN LESIONS, 2 TO 4 06/25/19 07791-KJTA SKIN LESIONS, 2 TO 4 10/01/19 Next Appt Details Provider Name:Ever Mata , 03/10/2025 01:00:00 PM, [address] [place], [address], Insurance Providers Payer Name Payer Address Payer Phone Subscriber Number Group Number Insured Name Patient Relationship to Insured Coverage Start Date Coverage End Date Medicare National Govt [facility]ly [facility] [address] [place] [address] [id number] Peloquin, Susy Self - patient is the insured 4 [employer] Blue Shield [address] [place] [address] [phone] [id number] Peloquin, Susy Self - patient is the insured Medical (General) History Medical History History ICD Code Arthritis cataracts diabetic osteoporosis cholesterol Glaucoma Measles Mumps Chicken pox Surgical History Surgery Date(Month/Year) ear surgery cataract surgery 10/2012 Hospitalization History Reason Date(Month/Year) Patient had iv yesterday for osteoporosi s. 07/09/2012
== END 2025-03-05 10:05 | disposition home or self-care (01) ==
LOC: HO.ENCR 09:33
PROVIDERS: PCP Family Medicine; Visit Provider Internal Medicine Endocrinology, Diabetes & Metabolism
DX: M81.0 Age-related osteoporosis without current pathological fracture (principal)

== ENCOUNTER → 2025-03-05 09:32 | Outpatient (BNVA) | payer MEDICARE, SELFPAY | PROVIDERS: PCP Family Medicine; Visit Provider Internal Medicine Endocrinology, Diabetes & Metabolism | DX: M81.0 Age-related osteoporosis without current pathological fracture (principal) | CPT/HCPCS: 96372; J0897 ==